=== PATIENT | male | born 1950 | race Caucasian/White ===

== ENCOUNTER 2018-04-04 19:29 | Inpatient (IN) | payer MEDICARE ==
--- NOTE | 2018-04-04 20:13 | EDM.PDOC ---
ED HPI GENERAL MEDICAL PROBLEM - General Chief Complaint: Lower Extremity Injury/Pain Stated Complaint: INFECTION IN FOOT RECENT SURGERY Time Seen by Provider: 04/04/18 19:35 Source of Information: Reports: Patient History Limitations: Reports: No Limitations - History of Present Illness INITIAL COMMENTS - FREE TEXT/NARRATIVE: This is a 68-year-old male who is been a insulin-dependent diabetic for about 5 years. In November due to a diabetic foot he had all his toes removed on the right foot. He has had infections with staph aureus in the past in that right foot and left foot. He was noted by his friends today to be running a fever over the last 3-4 days and some sweating spells and then this evening as they were driving through on their way to [place] he had some spells of disorientation. He is originally from [place] and he is traveling through to [place] for a graduation. They stopped here at this hospital because of his symptoms and condition. The patient states his right foot has been swollen and red for the last few days. He has a peripheral neuropathy of both his feet and he describes his left ankle as a Charcot ankle. He does have a diabetic on the underside of his right foot that's been there for several days as well. He denies any history of cardiac disease or congestive heart failure. He denies any history of myocardial infarction. He believes he does have a history of hypertension. - Related Data Allergies Allergy/AdvReac Type Severity Reaction Status Date / Time No Known Allergies Allergy Verified 04/04/18 19:49 Home Meds: Home Meds Aspirin [Halfprin] 81 mg PO DAILY 04/04/18 [History] Ferrous Sulfate 325 mg PO BID 04/04/18 [History] atorvaSTATin Calcium [Atorvastatin Calcium] 40 mg PO DAILY 04/04/18 [History] metFORMIN HCl [Metformin HCl] 500 mg PO DAILY 04/04/18 [History] Review of Systems - Review of Systems Review Of Systems: See Below Constitutional: Reports: Chills, Diaphoresis, Fever, Weakness Eyes: Reports: No Symptoms Ears: Reports: No Symptoms Nose: Reports: No Symptoms Mouth/Throat: Reports: No Symptoms Respiratory: Denies: Shortness of Breath, Cough Cardiovascular: Reports: Edema. Denies: Chest Pain GI/Abdominal: Reports: No Symptoms. Denies: Nausea, Vomiting Genitourinary: Reports: No Symptoms Musculoskeletal: Reports: Other (As per history of present illness) Skin: Reports: Other (As per history of present illness) Neurological: Reports: Other (Peripheral neuropathy in his lower extremities.) Psychiatric: Reports: Confusion, Other (Some disorientation.) ED EXAM, GENERAL - Physical Exam Exam: See Below Exam Limited By: No Limitations General Appearance: Alert, WD/WN, No Apparent Distress Eye Exam: Bilateral Eye: Normal Inspection Ears: Normal External Exam, Normal Canal, Normal TMs Nose: Normal Inspection Throat/Mouth: Normal Inspection, Normal Lips, Normal Voice, No Airway Compromise , Other (Teeth are in poor repair) Head: Normocephalic Neck: Supple Respiratory/Chest: No Respiratory Distress, Lungs Clear, Normal Breath Sounds Cardiovascular: Regular Rate, Rhythm, No Murmur, Tachycardia GI/Abdominal: Soft, Non-Tender Back Exam: Decreased Range of Motion Extremities: Other (He has marked edema of the right lower extremity, he does have a diabetic ulcer under the first MP joint it's about 2 cm in diameter, 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 No : No Motor/Sensory Deficits Psychiatric: Flat Affect Skin Exam: Warm, Dry Course - Vital Signs Last Recorded V/S: Last Vital Signs Temp 101.5 F H 04/04/18 20:40 Pulse 80 04/04/18 20:40 Resp 25 H 04/04/18 20:40 BP 158/82 H 04/04/18 20:40 Pulse Ox 96 04/04/18 20:40 - Orders/Labs/Meds Orders: Active Orders 24 hr Category Date Time Status Chest 2V [CR] Stat Exams 04/04/18 19:53 Taken CULTURE BLOOD [BC] Stat Lab 04/04/18 20:28 Received CULTURE BLOOD [BC] Stat Lab 04/04/18 20:36 Received CULTURE WOUND [RM] Stat Lab 04/04/18 20:45 Ordered Piperacillin/Tazobactam [Zosyn] 4.5 gm Med 04/04/18 20:00 Active Sodium Chloride 0.9% [Normal Saline] 100 ml IV Q6H Sodium Chloride 0.9% [Normal Saline] 1,000 ml Med 04/04/18 20:00 Active IV ASDIRECTED Blood Culture x2 Reflex Set [OM.PC] Stat Oth 04/04/18 19:53 Ordered Medication Orders Sodium Chloride (Normal Saline) 1,000 mls @ 100 mls/hr IV ASDIRECTED MIMI Last Admin: 04/04/18 20:35 Dose: 100 mls/hr Piperacillin Sod/Tazobactam (Sod 4.5 gm/ Sodium Chloride) 100 mls @ 200 mls/hr IV Q6H MIMI Last Admin: 04/04/18 20:36 Dose: 200 mls/hr Labs: Laboratory Tests 04/04/18 04/04/18 04/04/18 Range/Units 19:50 19:50 19:50 WBC 9.19 H (4.23-9.07) K/mm3 RBC 5.01 (4.63-6.08) M/mm3 Hgb 9.6 L (13.7-17.5) gm/L Hct 29.7 L (40.1-51.0) % MCV 59.3 L (79.0-92.2) fl MCH 19.2 L (25.7-32.2) pg MCHC 32.3 (32.2-35.5) g/dl RDW Std Deviation 37.5 (35.1-43.9) fL Plt Count 247 (163-337) K/mm3 MPV TNP Neut % (Auto) 83.3 H (34.0-67.9) % Lymph % (Auto) 6.3 L (21.8-53.1) % [place] % (Auto) 8.3 (5.3-12.2) % Eos % (Auto) 1.6 (0.8-7.0) Baso % (Auto) 0.2 (0.1-1.2) % Neut # (Auto) 7.65 H (1.78-5.38) K/mm3 Lymph # (Auto) 0.58 L (1.32-3.57) K/mm3 [place] # (Auto) 0.76 (0.30-0.82) K/mm3 Eos # (Auto) 0.15 (0.04-0.54) K/mm3 Baso # (Auto) 0.02 (0.01-0.08) K/mm3 Manual Slide Review Abnormal smear PT 11.7 (9.5-12.1) SECONDS INR 1.07 APTT 29 (24-31) SECONDS Sodium (136-145) mEq/L Potassium (3.5-5.1) mEq/L Chloride (98-107) mEq/L Carbon Dioxide (21-32) mEq/L Anion Gap (5-15) BUN (7-18) mg/dL Creatinine (0.7-1.3) mg/dL Est Cr Clr Drug Dosing mL/min Estimated GFR (MDRD) (>60) mL/min BUN/Creatinine Ratio (14-18) Glucose (80-115) mg/dL Lactic Acid (0.4-2.0) mmol/L Calcium (8.5-10.1) mg/dL Magnesium (1.8-2.4) mg/dl Total Bilirubin (0.2-1.0) mg/dL AST (15-37) U/L ALT (16-63) U/L Alkaline Phosphatase (46-116) U/L C-Reactive Protein 17.3 H* (<1.0) mg/dL Total Protein (6.4-8.2) g/dl Albumin (3.4-5.0) g/dl Globulin gm/dL Albumin/Globulin Ratio (1-2) 04/04/18 04/04/18 04/04/18 Range/Units 19:50 19:50 20:36 WBC (4.23-9.07) K/mm3 RBC (4.63-6.08) M/mm3 Hgb (13.7-17.5) gm/L Hct (40.1-51.0) % MCV (79.0-92.2) fl MCH (25.7-32.2) pg MCHC (32.2-35.5) g/dl RDW Std Deviation (35.1-43.9) fL Plt Count (163-337) K/mm3 MPV Neut % (Auto) (34.0-67.9) % Lymph % (Auto) (21.8-53.1) % [place] % (Auto) (5.3-12.2) % Eos % (Auto) (0.8-7.0) Baso % (Auto) (0.1-1.2) % Neut # (Auto) (1.78-5.38) K/mm3 Lymph # (Auto) (1.32-3.57) K/mm3 [place] # (Auto) (0.30-0.82) K/mm3 Eos # (Auto) (0.04-0.54) K/mm3 Baso # (Auto) (0.01-0.08) K/mm3 Manual Slide Review PT (9.5-12.1) SECONDS INR APTT (24-31) SECONDS Sodium 136 (136-145) mEq/L Potassium 3.9 (3.5-5.1) mEq/L Chloride 102 (98-107) mEq/L Carbon Dioxide 23 (21-32) mEq/L Anion Gap 14.9 (5-15) BUN 28 H (7-18) mg/dL Creatinine 1.2 (0.7-1.3) mg/dL Est Cr Clr Drug Dosing 69.45 mL/min Estimated GFR (MDRD) > 60 (>60) mL/min BUN/Creatinine Ratio 23.3 H (14-18) Glucose 152 H (80-115) mg/dL Lactic Acid 1.5 (0.4-2.0) mmol/L Calcium 10.0 (8.5-10.1) mg/dL Magnesium 1.7 L (1.8-2.4) mg/dl Total Bilirubin 0.9 (0.2-1.0) mg/dL AST 18 (15-37) U/L ALT 27 (16-63) U/L Alkaline Phosphatase 51 (46-116) U/L C-Reactive Protein (<1.0) mg/dL Total Protein 7.3 (6.4-8.2) g/dl Albumin 3.2 L (3.4-5.0) g/dl Globulin 4.1 gm/dL Albumin/Globulin Ratio 0.8 L (1-2) Meds: Medications Generic Name Dose Route Start Last Admin Trade Name Freq PRN Reason Stop Dose Admin Sodium Chloride 1,000 mls @ 100 mls/hr 04/04/18 20:00 04/04/18 20:35 Normal Saline IV 100 mls/hr ASDIRECTED MIMI Administration Piperacillin Sod/Tazobactam 100 mls @ 200 mls/hr 04/04/18 20:00 04/04/18 20: 36 Sod 4.5 gm/ Sodium Chloride IV 200 mls/hr Q6H MIMI Administration Discontinued Medications Generic Name Dose Route Start Last Admin Trade Name [place] PRN Reason Stop Dose Admin Vancomycin HCl 1 gm/ Sodium 250 mls @ 250 mls/hr 04/04/18 20:04 04/04/18 20: 36 Chloride IV 04/04/18 21:03 250 mls/hr ONETIME ONE Administration Sodium Chloride Confirm 04/04/18 20:14 04/04/18 20:37 Normal Saline Administered 04/04/18 20:15 Not Given Dose 100 mls @ as directed .ROUTE .STK-MED ONE - Radiology Interpretation Free Text/Narrative:: Chest x-ray does not show any acute changes. - Re-Assessments/Exams Free Text/Narrative Re-Assessment/Exam: 04/04/18 21:58 I spoke to the patient regarding the need for admission. He is willing to be in the hospital for treatment. I spoke with Dr. Contreras and he is willing to accept the patient for admission for further evaluation and treatment. Departure - Departure Time of Disposition: 22:00 Disposition: Admitted As Inpatient 67 Condition: Fair Clinical Impression: Cellulitis of foot, right, Diabetic infection of right foot, Insulin dependent diabetes mellitus Diabetic ulcer of right foot Qualifiers: Diabetic foot ulcer location: other Diabetes mellitus type: type 1 Non- pressure ulcer stage: limited to breakdown of skin Qualified Code(s): E10.621 - Type 1 diabetes mellitus with foot ulcer; L97.511 - Non-pressure chronic ulcer of other part of right foot limited to breakdown of skin - Discharge Information ED Communication - ED Communication Date/Time Date: 04/04/18 Time Called: 22:02 - Discussed Case With (1) Discussed Case With (1): Admitting Provider Person/s Notified (1): Prudencio Contreras (He will admit for further evaluation and treatment) - My Orders Last 24 Hours: My Active Orders 04/04/18 19:53 Chest 2V [CR] Stat Blood Culture x2 Reflex Set [OM.PC] Stat 04/04/18 20:00 Piperacillin/Tazobactam [Zosyn] 4.5 gm Sodium Chloride 0.9% [Normal Saline] 100 ml IV Q6H Sodium Chloride 0.9% [Normal Saline] 1,000 ml IV ASDIRECTED 04/04/18 20:28 CULTURE BLOOD [BC] Stat 04/04/18 20:36 CULTURE BLOOD [BC] Stat 04/04/18 20:45 CULTURE WOUND [RM] Stat - Assessment/Plan Last 24 Hours: My Active Orders 04/04/18 19:53 Chest 2V [CR] Stat Blood Culture x2 Reflex Set [OM.PC] Stat 04/04/18 20:00 Piperacillin/Tazobactam [Zosyn] 4.5 gm Sodium Chloride 0.9% [Normal Saline] 100 ml IV Q6H Sodium Chloride 0.9% [Normal Saline] 1,000 ml IV ASDIRECTED 04/04/18 20:28 CULTURE BLOOD [BC] Stat 04/04/18 20:36 CULTURE BLOOD [BC] Stat 04/04/18 20:45 CULTURE WOUND [RM] Stat
[2018-04-04] MEDS ORDERED: Sodium Chloride 0.9% 100 ML ONE (20:14)
[2018-04-04] MEDS: Sodium Chloride 0.9% 1,000 ML IV SCH (20:35)
[2018-04-04] MEDS: Piperacillin/Tazobactam 4.5 GM in Sodium Chloride 0.9% 100 ML IV SCH (20:36)
[2018-04-04] MEDS ORDERED: Acetaminophen/HYDROcodone 325-5 MG Tab PO PRN (22:26)
[2018-04-04] MEDS ORDERED: Docusate Sodium 100 MG Cap PO PRN (22:26)
[2018-04-04] MEDS ORDERED: Ondansetron 4 MG/2 ML SDV IV PRN (22:26)
[2018-04-04] MEDS ORDERED: Bisacodyl 5 MG Tab PO PRN (22:26)
[2018-04-04] MEDS ORDERED: Polyethylene Glycol 3350 Powder 17 GM Packet PO PRN (22:26)
[2018-04-04] MEDS ORDERED: LORazepam 2 MG/ML SDV IV PRN (22:26)
[2018-04-04] MEDS ORDERED: Promethazine 12.5 MG in Sodium Chloride 0.9% 50 ML IV PRN (22:26)
[2018-04-04] MEDS ORDERED: Albuterol/Ipratropium 3.0-0.5 MG/3 ML Neb Soln NEB PRN (22:26)
[2018-04-04] MEDS ORDERED: Metoprolol Tartrate 5 MG/5 ML SDV IVPUSH PRN (22:26)
[2018-04-04] MEDS ORDERED: HYDROmorphone 0.5 MG/0.5 ML SYRINGE IVPUSH PRN (22:26)
[2018-04-04] MEDS ORDERED: Temazepam 15 MG Cap PO PRN (22:26)
[2018-04-04] MEDS ORDERED: LORazepam 2 MG/ML SDV IVPUSH PRN (22:26)
[2018-04-04] MEDS ORDERED: 50% Dextrose in Water 50 ML Syringe IVPUSH PRN (22:34)
[2018-04-04] MEDS ORDERED: Magnesium Sulfate/Water 2 GM in Premix Bag 1 BAG IV ONE (22:37)
--- NOTE | 2018-04-04 22:38 | PCM.HP ---
H&P History of Present Illness - General Date of Service: 04/04/18 Admit Problem/Dx: Admission Diagnosis/Problem Admission Diagnosis/Problem Cellulitis in diabetic foot Source of Information: Patient, Provider, RN Notes Reviewed History Limitations: Reports: Physical Impairment - History of Present Illness Initial Comments - Free Text/Narative: This is a 68 yo elderly white male with 5-6 year hx/o ID-DM2, HLD, MIKA and Obesity who comes in for evaluation of possible foot infection. He has been having fever, chills, sweats, and disorientation for the past 3-4 days while traveling along with friends on their way to [place] to attend a graduation ceremony of a family member. Patient comes to us all the way from [place]. According to patient, he has a stump on the right foot and at the bottom is an ulcer that is being has bee going on for 4 weeks now. He is seeing a crm marketing specialist in [place] for it. He checks his sugar from time to time. His last A1C is unknown. Patient reports having peripheral neuropathy on both leg. His initial workup in emergency department shows a CBC remarkable for WBC of 9.19, hemoglobin of 9.6, hematocrit of 29.7, MCV of 59.2, MCH of 19.2, neutrophils of 83.3%, and lymphocytes of 6.3%. His chemistry is remarkable for BUN of 28, glucose of 152, magnesium of 1.7, CRP of 17.3, and albumin of 3.2. His chest x-ray shows no acute abnormal findings. Patient is being admitted for sepsis and management of diabetic foot ulcer. He is full code. - Related Data Allergies/Adverse Reactions: Allergies Allergy/AdvReac Type Severity Reaction Status Date / Time No Known Allergies Allergy Verified 04/05/18 07:56 Home Medications: Home Meds Aspirin [Halfprin] 81 mg PO DAILY 04/04/18 [History] Ferrous Sulfate 325 mg PO BID 04/04/18 [History] atorvaSTATin Calcium [Atorvastatin Calcium] 40 mg PO DAILY 04/04/18 [History] metFORMIN HCl [Metformin HCl] 500 mg PO DAILY 04/04/18 [History] Past Medical History HEENT History: Reports: Cataract Musculoskeletal History: Reports: Amputation, Arthritis, Back Pain, Chronic, Gout, Other (See Below) Other Musculoskeletal History: sciatica Neurological History: Reports: Headaches, Chronic Endocrine/Metabolic History: Reports: Diabetes, Type II Dermatologic History: Reports: Cellulitis - Infectious Disease History Infectious Disease History: Reports: Other (See Below) Other Infectious Disease History: staph - Past Surgical History GI Surgical History: Reports: Hernia, Inguinal Musculoskeletal Surgical History: Reports: Amputation Dermatological Surgical History: Reports: Other (See Below) Social & Family History - Family History Family Medical History: Unobtainable - Tobacco Use Smoking Status *Q: Never Smoker Second Hand Smoke Exposure: No - Caffeine Use Caffeine Use: Reports: Coffee, Tea - Recreational Drug Use Recreational Drug Use: Yes Drug Use in Last 12 Months: Yes Recreational Drug Type: Reports: Marijuana/Hashish Recreational Drug Use Frequency: Monthly H&P Review of Systems - Review of Systems: Review Of Systems: See Below General: Reports: Fever, Chills, Weakness, Diaphoresis HEENT: Reports: No Symptoms Pulmonary: Denies: Shortness of Breath Cardiovascular: Reports: Edema. Denies: Chest Pain, Palpitations, Dyspnea on Exertion, Lightheadedness Gastrointestinal: Denies: Abdominal Pain, Decreased Appetite, Nausea, Vomiting Genitourinary: Reports: No Symptoms Musculoskeletal: Denies: Leg Pain, Foot Pain Skin: Reports: Wound, Lesions Psychiatric: Reports: Confusion. Denies: Depression, Anxiety, Hallucinations Neurological: Reports: Difficulty Walking, Weakness, Gait Disturbance, Other ( Peripheral Neuropathy) Hematologic/Lymphatic: Reports: No Symptoms Immunologic: Reports: Seasonal Allergy Exam - Exam Exam: See Below - Vital Signs Vital Signs: Last Vital Signs Temp 38.6 C H 04/04/18 20:40 Pulse 80 04/04/18 20:40 Resp 25 H 04/04/18 20:40 BP 158/82 H 04/04/18 20:40 Pulse Ox 96 04/04/18 20:40 Weight: 117.934 kg - Exam General: Alert, Oriented, Cooperative HEENT: EACs Clear, EOMI, Hearing Intact, Mucosa Moist & [place], Nares Patent, Normal Nasal Septum, Posterior Pharynx Clear, Pupils Equal, Pupils Reactive Neck: Supple, Trachea Midline, +2 Carotid Pulse wo Bruit Lungs: Clear to Auscultation, Normal Respiratory Effort Cardiovascular: Regular Rate, Regular Rhythm GI/Abdominal Exam: Normal Bowel Sounds, Soft, Non-Tender, No Organomegaly, No Distention, No Abnormal Bruit, No Mass (Male) Exam: Deferred Rectal (Males) Exam: Deferred Back Exam: Normal Inspection, Decreased Range of Motion Extremities: Limited Range of Motion (right), Redness (right foot), Other (Left Lower Extremity: Appropriate ROM, No obvious lesion or skin break down, No erythema or edema). No: Normal Inspection (right foot), Normal Range of Motion (right foot) Peripheral Pulses: 2+: Posterior Tibial (L), Dorsalis Pedis (L) Skin: Warm, Dry, Intact Skin Alteration Location (Drawings Not To Scale): 1 - right foot: stump--> underneath is a 25 coin size like ulcer; obvious edema and erythema Neuro Extensive - Mental Status: Oriented x3, Normal Cognition, Memory Intact Neuro Extensive - Motor, Sensory, Reflexes: CN II-XII Intact (Intact neurological exam affected ), Abnormal Gait, Motor/Sensory Deficits Psychiatric: Alert, Normal Affect, Normal Mood - Patient Data Lab Results Last 24 hrs: Laboratory Results - last 24 hr 04/04/18 04/04/18 04/04/18 Range/Units 19:50 19:50 19:50 WBC 9.19 H (4.23-9.07) K/mm3 RBC 5.01 (4.63-6.08) M/mm3 Hgb 9.6 L (13.7-17.5) gm/L Hct 29.7 L (40.1-51.0) % MCV 59.3 L (79.0-92.2) fl MCH 19.2 L (25.7-32.2) pg MCHC 32.3 (32.2-35.5) g/dl RDW Std Deviation 37.5 (35.1-43.9) fL Plt Count 247 (163-337) K/mm3 MPV TNP Neut % (Auto) 83.3 H (34.0-67.9) % Lymph % (Auto) 6.3 L (21.8-53.1) % [place] % (Auto) 8.3 (5.3-12.2) % Eos % (Auto) 1.6 (0.8-7.0) Baso % (Auto) 0.2 (0.1-1.2) % Neut # (Auto) 7.65 H (1.78-5.38) K/mm3 Lymph # (Auto) 0.58 L (1.32-3.57) K/mm3 [place] # (Auto) 0.76 (0.30-0.82) K/mm3 Eos # (Auto) 0.15 (0.04-0.54) K/mm3 Baso # (Auto) 0.02 (0.01-0.08) K/mm3 Manual Slide Review Abnormal smear PT 11.7 (9.5-12.1) SECONDS INR 1.07 APTT 29 (24-31) SECONDS Sodium (136-145) mEq/L Potassium (3.5-5.1) mEq/L Chloride (98-107) mEq/L Carbon Dioxide (21-32) mEq/L Anion Gap (5-15) BUN (7-18) mg/dL Creatinine (0.7-1.3) mg/dL Est Cr Clr Drug Dosing mL/min Estimated GFR (MDRD) (>60) mL/min BUN/Creatinine Ratio (14-18) Glucose (80-115) mg/dL Lactic Acid (0.4-2.0) mmol/L Calcium (8.5-10.1) mg/dL Magnesium (1.8-2.4) mg/dl Total Bilirubin (0.2-1.0) mg/dL AST (15-37) U/L ALT (16-63) U/L Alkaline Phosphatase (46-116) U/L C-Reactive Protein 17.3 H* (<1.0) mg/dL Total Protein (6.4-8.2) g/dl Albumin (3.4-5.0) g/dl Globulin gm/dL Albumin/Globulin Ratio (1-2) 04/04/18 04/04/18 04/04/18 Range/Units 19:50 19:50 20:36 WBC (4.23-9.07) K/mm3 RBC (4.63-6.08) M/mm3 Hgb (13.7-17.5) gm/L Hct (40.1-51.0) % MCV (79.0-92.2) fl MCH (25.7-32.2) pg MCHC (32.2-35.5) g/dl RDW Std Deviation (35.1-43.9) fL Plt Count (163-337) K/mm3 MPV Neut % (Auto) (34.0-67.9) % Lymph % (Auto) (21.8-53.1) % [place] % (Auto) (5.3-12.2) % Eos % (Auto) (0.8-7.0) Baso % (Auto) (0.1-1.2) % Neut # (Auto) (1.78-5.38) K/mm3 Lymph # (Auto) (1.32-3.57) K/mm3 [place] # (Auto) (0.30-0.82) K/mm3 Eos # (Auto) (0.04-0.54) K/mm3 Baso # (Auto) (0.01-0.08) K/mm3 Manual Slide Review PT (9.5-12.1) SECONDS INR APTT (24-31) SECONDS Sodium 136 (136-145) mEq/L Potassium 3.9 (3.5-5.1) mEq/L Chloride 102 (98-107) mEq/L Carbon Dioxide 23 (21-32) mEq/L Anion Gap 14.9 (5-15) BUN 28 H (7-18) mg/dL Creatinine 1.2 (0.7-1.3) mg/dL Est Cr Clr Drug Dosing 69.45 mL/min Estimated GFR (MDRD) > 60 (>60) mL/min BUN/Creatinine Ratio 23.3 H (14-18) Glucose 152 H (80-115) mg/dL Lactic Acid 1.5 (0.4-2.0) mmol/L Calcium 10.0 (8.5-10.1) mg/dL Magnesium 1.7 L (1.8-2.4) mg/dl Total Bilirubin 0.9 (0.2-1.0) mg/dL AST 18 (15-37) U/L ALT 27 (16-63) U/L Alkaline Phosphatase 51 (46-116) U/L C-Reactive Protein (<1.0) mg/dL Total Protein 7.3 (6.4-8.2) g/dl Albumin 3.2 L (3.4-5.0) g/dl Globulin 4.1 gm/dL Albumin/Globulin Ratio 0.8 L (1-2) Result Diagrams: 04/06/18 06:16 04/06/18 06:16 Problem List Initiated/Reviewed/Updated: Yes Orders Last 24hrs: Active Orders 24 hr Category Date Time Status Patient Status [ADT] Routine ADT 04/04/18 22:03 Active Blood Glucose Check, Bedside [RC] QIDACANDBED Care 04/04/18 22:34 Ordered Cardiac Monitoring [RC] CONTINUOUS Care 04/04/18 22:27 Active Height and Weight [RC] DAILY Care 04/04/18 22:26 Active Intake and Output [RC] QSHIFT Care 04/04/18 22:27 Active Oxygen Therapy [RC] PRN Care 04/04/18 22:27 Active RT Aerosol Therapy [RC] ASDIRECTED Care 04/04/18 22:28 Active Up With Assistance [RC] ASDIRECTED Care 04/04/18 22:26 Active Up ad Natalie [RC] ASDIRECTED Care 04/04/18 22:26 Active VTE/DVT Education [RC] PER UNIT ROUTINE Care 04/04/18 22:27 Active Vital Signs [RC] Q4H Care 04/04/18 22:27 Active Consult to Case Management [CONS] Routine Cons 04/04/18 22:29 Active Consult to Diabetic Nurse Specialist [CONS] Routine Cons 04/04/18 22:29 Active Consult to Various Exceptionalities Teacher [CONS] Routine Cons 04/04/18 22:29 Active Consult to Site Coordinator [CONS] Routine Cons 04/04/18 22:29 Active Consult to Spiritual Care [CONS] Routine Cons 04/04/18 22:29 Active OT Evaluation and Treatment [CONS] Routine Cons 04/04/18 22:29 Active PT Evaluation and Treatment [CONS] Routine Cons 04/04/18 22:29 Active Consistent Carbohydrate Diet [DIET] Diet 04/04/18 Dinner Active Heart Healthy Diet [DIET] Diet 04/04/18 Dinner Active Chest 2V [CR] Stat Exams 04/04/18 19:53 Taken A1C [GLYCOSYLATED HEMOGLOBIN,HGBA1C] [CHEM] AM Lab 04/05/18 05:11 Ordered BASIC METABOLIC PANEL,BMP [CHEM] AM Lab 04/05/18 05:11 Ordered BASIC METABOLIC PANEL,BMP [CHEM] AM Lab 04/06/18 05:11 Ordered BASIC METABOLIC PANEL,BMP [CHEM] AM Lab 04/07/18 05:11 Ordered BASIC METABOLIC PANEL,BMP [CHEM] AM Lab 04/08/18 05:11 Ordered BASIC METABOLIC PANEL,BMP [CHEM] AM Lab 04/09/18 05:11 Ordered C-REACTIVE PROTEIN [CHEM] AM Lab 04/05/18 05:11 Ordered C-REACTIVE PROTEIN [CHEM] AM Lab 04/06/18 05:11 Ordered C-REACTIVE PROTEIN [CHEM] AM Lab 04/07/18 05:11 Ordered C-REACTIVE PROTEIN [CHEM] AM Lab 04/08/18 05:11 Ordered C-REACTIVE PROTEIN [CHEM] AM Lab 04/09/18 05:11 Ordered CBC WITH AUTO DIFF [HEME] AM Lab 04/05/18 05:11 Ordered CBC WITH AUTO DIFF [HEME] AM Lab 04/06/18 05:11 Ordered CBC WITH AUTO DIFF [HEME] AM Lab 04/07/18 05:11 Ordered CBC WITH AUTO DIFF [HEME] AM Lab 04/08/18 05:11 Ordered CULTURE BLOOD [BC] Stat Lab 04/04/18 20:28 Received CULTURE BLOOD [BC] Stat Lab 04/04/18 20:36 Received CULTURE WOUND [RM] Stat Lab 04/04/18 20:45 Ordered LIPID PANEL [CHEM] AM Lab 04/05/18 05:11 Ordered MAGNESIUM [CHEM] AM Lab 04/05/18 05:11 Ordered MAGNESIUM [CHEM] AM Lab 04/06/18 05:11 Ordered MAGNESIUM [CHEM] AM Lab 04/07/18 05:11 Ordered MAGNESIUM [CHEM] AM Lab 04/08/18 05:11 Ordered MAGNESIUM [CHEM] AM Lab 04/09/18 05:11 Ordered MICROALBUMIN,URINE RANDOM [URCHEM] Stat Lab 04/04/18 22:31 Ordered T4 FREE [CHEM] AM Lab 04/05/18 05:11 Ordered TSH [CHEM] AM Lab 04/05/18 05:11 Ordered Acetaminophen [Tylenol] Med 04/04/18 22:26 Active 650 mg PO Q4H PRN Acetaminophen/HYDROcodone [[place] 325-5 MG] Med 04/04/18 22:26 Active 1 tab PO Q4H PRN Albuterol/Ipratropium [DuoNeb 3.0-0.5 MG/3 ML] Med 04/04/18 22:26 Ordered 3 ml NEB Q4H PRN Aspirin [Halfprin] Med 04/05/18 09:00 Ordered 81 mg PO DAILY Bisacodyl [Dulcolax] Med 04/04/18 22:26 Ordered 5 mg PO DAILY PRN Dextrose 50% in Water Med 04/04/18 22:34 Ordered 50 ml IVPUSH ASDIRECTED PRN Docusate Sodium [Colace] Med 04/04/18 22:26 Ordered 100 mg PO BID PRN Docusate Sodium/Sennosides [Senna Plus] Med 04/04/18 22:26 Ordered 1 tab PO BID PRN Enoxaparin [Lovenox] Med 04/05/18 09:00 Ordered 30 mg SUBCUT DAILY Ferrous Sulfate Med 04/05/18 09:00 Ordered 325 mg PO BID HYDROmorphone [Dilaudid] Med 04/04/18 22:26 Ordered 0.5 mg IVPUSH Q4H PRN Insulin Aspart [NovoLOG] Med 04/05/18 07:00 Ordered See Protocol SUBCUT QIDACANDBED LORazepam [Ativan] Med 04/04/18 22:26 Ordered 1 mg IV Q6H PRN LORazepam [Ativan] Med 04/04/18 22:26 Ordered 2 mg IVPUSH Q4H PRN Lisinopril [Prinivil] Med 04/05/18 09:00 Ordered 10 mg PO DAILY Magnesium Rep Pharmacy to Dose [Pharmacy to Dose - Med 04/04/18 22:30 Ordered Magnesium Replacement] 1 dose .XX ASDIRECTED Magnesium Sulfate/Water [Magnesium Sulfate 2 GM in Med 04/04/18 22:37 Ordered Water 50 ML] 2 gm Premix Bag 1 bag IV ONETIME Metoprolol Tartrate [Lopressor] Med 04/04/18 22:26 Ordered 5 mg IVPUSH Q4H PRN Ondansetron [Zofran] Med 04/04/18 22:26 Ordered 4 mg IV Q6H PRN Piperacillin/Tazobactam [Zosyn] 4.5 gm Med 04/04/18 20:00 Active Sodium Chloride 0.9% [Normal Saline] 100 ml IV Q6H Polyethylene Glycol 3350 [MiraLAX] Med 04/04/18 22:26 Ordered 17 gm PO DAILY PRN Potassium Rep Pharmacy to Dose [Pharmacy to Dose - Med 04/04/18 22:30 Ordered Potassium Replacement] 1 dose .XX ASDIRECTED Promethazine [Phenergan] 12.5 mg Med 04/04/18 22:26 Ordered Sodium Chloride 0.9% [Normal Saline] 50 ml IV Q6H Saccharomyces Boulardii [Florastor] Med 04/05/18 09:00 Ordered 250 mg PO BID Sodium Chloride 0.9% [Normal Saline] 1,000 ml Med 04/04/18 20:00 Active IV ASDIRECTED Temazepam [Restoril] Med 04/04/18 22:26 Ordered 15 mg PO BEDTIME PRN Vancomycin Med 04/04/18 22:45 Ordered 1,769.01 mg IV Q12H Vancomycin Pharmacy to Dose [Pharmacy to Dose - Med 04/04/18 22:45 Ordered Vancomycin] 1 dose .XX ASDIRECTED atorvaSTATin Calcium Med 04/05/18 09:00 Ordered 40 mg PO DAILY hydrALAZINE [Apresoline] Med 04/04/18 22:26 Ordered 20 mg IVPUSH Q4H PRN metFORMIN [Glucophage] Med 04/05/18 09:00 Ordered 500 mg PO BID Blood Culture x2 Reflex Set [OM.PC] Stat Oth 04/04/18 19:53 Ordered Resuscitation Status Routine Resus Stat 04/04/18 22:26 Ordered Medication Orders Acetaminophen (Tylenol) 650 mg PO Q4H PRN PRN Reason: Pain (Mild 1-3)/fever Hydrocodone Bitart/Acetaminophen ([place] 325-5 Mg) 1 tab PO Q4H PRN PRN Reason: Pain (moderate 4-6) Albuterol/Ipratropium (Duoneb 3.0-0.5 Mg/3 Ml) 3 ml NEB Q4H PRN PRN Reason: Shortness Of Breath/wheezing Aspirin (Halfprin) 81 mg PO DAILY [facility] Bisacodyl (Dulcolax) 5 mg PO DAILY PRN PRN Reason: Constipation Dextrose/Water (Dextrose 50% In Water) 50 ml IVPUSH ASDIRECTED PRN PRN Reason: Hypoglycemia Docusate Sodium (Colace) 100 mg PO BID PRN PRN Reason: Constipation Enoxaparin Sodium (Lovenox) 40 mg SUBCUT DAILY [facility] Hydralazine HCl (Apresoline) 20 mg IVPUSH Q4H PRN PRN Reason: Hypertension Hydromorphone HCl (Dilaudid) 0.5 mg IVPUSH Q4H PRN PRN Reason: Pain (severe 7-10) Sodium Chloride (Normal Saline) 1,000 mls @ 100 mls/hr IV ASDIRECTED [facility] Last Admin: 04/04/18 20:35 Dose: 100 mls/hr Piperacillin Sod/Tazobactam (Sod 4.5 gm/ Sodium Chloride) 100 mls @ 200 mls/hr IV Q6H [facility] Last Admin: 04/04/18 20:36 Dose: 200 mls/hr Promethazine HCl 12.5 mg/ (Sodium Chloride) 50.5 mls @ 100 mls/hr IV Q6H PRN PRN Reason: Nausea/Vomiting Insulin Aspart (Novolog) 0 unit SUBCUT QIDACANDBED [facility]; Protocol Lisinopril (Prinivil) 10 mg PO DAILY [facility] Lorazepam (Ativan) 2 mg IVPUSH Q4H PRN PRN Reason: Seizures Lorazepam (Ativan) 1 mg IV Q6H PRN PRN Reason: Nausea/Vomiting Magnesium Sulfate (Pharmacy To Dose - Magnesium Replacement) 1 dose .XX ASDIRECTED [facility] Metformin HCl (Glucophage) 500 mg PO BID [facility] Metoprolol Tartrate (Lopressor) 5 mg IVPUSH Q4H PRN PRN Reason: Tachycardia Non-Formulary Medication (Atorvastatin Calcium) 40 mg PO DAILY [facility] Non-Formulary Medication (Ferrous Sulfate) 325 mg PO BID [facility] Ondansetron HCl (Zofran) 4 mg IV Q6H PRN PRN Reason: Nausea/Vomiting Polyethylene Glycol (Miralax) 17 gm PO DAILY PRN PRN Reason: Constipation Potassium Chloride (Pharmacy To Dose - Potassium Replacement) 1 dose .XX ASDIRECTED [facility] Saccharomyces Boulardii (Florastor) 250 mg PO BID [facility] Senna/Docusate Sodium (Senna Plus) 1 tab PO BID PRN PRN Reason: Constipation Temazepam (Restoril) 15 mg PO BEDTIME PRN PRN Reason: Sleep Vancomycin HCl (Vancomycin) 1,769.01 mg 15 mg/kg (1769.01 mg) IV Q12H [facility] Vancomycin HCl (Pharmacy To Dose - Vancomycin) 1 dose .XX ASDIRECTED [facility] Assessment/Plan Comment:: Assessment/Plan: Acute: Diabetic Foot Ulcer with Abscess - Right Foot S/p Amputation - 4 week old 25 quarter coin like ulcer on the bottom of the foot - He has been seeing a crm marketing specialist in [place] - He is not wearing diabetic shoes - He is on Metformin 500 mg po daily; however he admits to having 70/30 insulin but used it as needed - His last A1C is unknown - IV Vancomycin and Zosyn for pharmacy to dose - GS consult with Dr. Robertson - Aggressive glucose control Sepsis - Fever/Chills and Foot Infection - 2/2 Above - LA is 1.5 - Blood culture x 2 - Antibiotics as above Hypomagnesemia - Mg 1.7 - 2/2 inadequate intake - Replete and monitor Chronic: DM2 MIKA HLD Plan: Admit to [facility] with Tele Resume Home Meds Routine AM Labs A1C, Lipid Panel and TFT in AM Microalbumin Probiotic daily Accu-check QID and AC with ISS Diabetic and Dietary consult GS consult PT/OT consult SW/CM for d/c planning Code status:1
[2018-04-04] MEDS ORDERED: Vancomycin 500 MG SDV IV SCH (22:45)
[2018-04-05] MEDS: Piperacillin/Tazobactam 4.5 GM in Sodium Chloride 0.9% 100 ML IV SCH ×4 (02:35→04:04)
[2018-04-05] MEDS: Vancomycin 1500 MG in Sodium Chloride 0.9% 500 ML IV SCH ×9 (02:48→19:05)
[2018-04-05] MEDS: Sodium Chloride 0.9% 1,000 ML IV SCH ×2 (04:53→17:31)
[2018-04-05] MEDS ORDERED: Ferrous Sulfate 325 MG Tab PO SCH (07:00)
--- NOTE | 2018-04-05 07:41 | PCM.PN ---
- General Info Date of Service: 04/05/18 Admission Dx/Problem (Free Text): Admission Diagnosis/Problem Admission Diagnosis/Problem Cellulitis in diabetic foot Functional Status: Reports: Pain Controlled, Tolerating Diet, Ambulating, Urinating. Denies: New Symptoms - Review of Systems General: Denies: Fever, Weakness, Fatigue, Malaise, Chills HEENT: Reports: No Symptoms Pulmonary: Denies: Shortness of Breath, Cough Cardiovascular: Denies: Chest Pain, Palpitations, Dyspnea on Exertion, Lightheadedness Gastrointestinal: Denies: Abdominal Pain, Nausea, Vomiting Genitourinary: Reports: No Symptoms Musculoskeletal: Denies: Leg Pain, Foot Pain, Joint Swelling Skin: Denies: Cyanosis, Pallor, Diaphoresis, Pruritis, Rash Neurological: Reports: Difficulty Walking, Gait Disturbance. Denies: Confusion , Numbness, Syncope, Tingling, Weakness Psychiatric: Denies: Depression, Anxiety, Agitation, Hallucinations Systems Review Comment:: No overnight or acute issues. He slept pretty good. He has no complaints this AM. He is now afebrile and his CRP is down to 13.9. A1C is outstanding at 6.6. However his Hgb is down at 8.2 from 9.6 with unknown baseline. - Patient Data Vitals - Most Recent: Last Vital Signs Temp 36.5 C 04/05/18 03:53 Pulse 67 04/05/18 03:53 Resp 20 04/05/18 03:53 BP 129/66 04/05/18 03:53 Pulse Ox 95 04/05/18 03:53 Weight - Most Recent: 122.107 kg I&O - Last 24 Hours: Intake & Output 04/04/18 04/05/18 04/05/18 22:59 06:59 14:59 Intake Total 1150 Balance 1150 Lab Results Last 24 Hours: Laboratory Results - last 24 hr 04/04/18 04/04/18 04/04/18 Range/Units 19:50 19:50 19:50 WBC 9.19 H (4.23-9.07) K/mm3 RBC 5.01 (4.63-6.08) M/mm3 Hgb 9.6 L (13.7-17.5) gm/L Hct 29.7 L (40.1-51.0) % MCV 59.3 L (79.0-92.2) fl MCH 19.2 L (25.7-32.2) pg MCHC 32.3 (32.2-35.5) g/dl RDW Std Deviation 37.5 (35.1-43.9) fL Plt Count 247 (163-337) K/mm3 MPV TNP Neut % (Auto) 83.3 H (34.0-67.9) % Lymph % (Auto) 6.3 L (21.8-53.1) % Tyler % (Auto) 8.3 (5.3-12.2) % Eos % (Auto) 1.6 (0.8-7.0) Baso % (Auto) 0.2 (0.1-1.2) % Neut # (Auto) 7.65 H (1.78-5.38) K/mm3 Lymph # (Auto) 0.58 L (1.32-3.57) K/mm3 Tyler # (Auto) 0.76 (0.30-0.82) K/mm3 Eos # (Auto) 0.15 (0.04-0.54) K/mm3 Baso # (Auto) 0.02 (0.01-0.08) K/mm3 Manual Slide Review Abnormal smear PT 11.7 (9.5-12.1) SECONDS INR 1.07 APTT 29 (24-31) SECONDS Sodium (136-145) mEq/L Potassium (3.5-5.1) mEq/L Chloride (98-107) mEq/L Carbon Dioxide (21-32) mEq/L Anion Gap (5-15) BUN (7-18) mg/dL Creatinine (0.7-1.3) mg/dL Est Cr Clr Drug Dosing mL/min Estimated GFR (MDRD) (>60) mL/min BUN/Creatinine Ratio (14-18) Glucose (80-115) mg/dL POC Glucose (80-115) mg/dL Hemoglobin A1c (4.50-6.20) % Lactic Acid (0.4-2.0) mmol/L Calcium (8.5-10.1) mg/dL Magnesium (1.8-2.4) mg/dl Total Bilirubin (0.2-1.0) mg/dL AST (15-37) U/L ALT (16-63) U/L Alkaline Phosphatase (46-116) U/L C-Reactive Protein 17.3 H* (<1.0) mg/dL Total Protein (6.4-8.2) g/dl Albumin (3.4-5.0) g/dl Globulin gm/dL Albumin/Globulin Ratio (1-2) Triglycerides (<150) mg/dL Cholesterol (<200) mg/dL LDL Cholesterol Direct (<100) mg/dL HDL Cholesterol (40-59) mg/dL Free T4 (0.76-1.46) ng/dL TSH 3rd Generation (0.358-3.74) uIU/mL Ur Random Microalbumin (1.3-20.0) mg/L 04/04/18 04/04/18 04/04/18 Range/Units 19:50 19:50 20:36 WBC (4.23-9.07) K/mm3 RBC (4.63-6.08) M/mm3 Hgb (13.7-17.5) gm/L Hct (40.1-51.0) % MCV (79.0-92.2) fl MCH (25.7-32.2) pg MCHC (32.2-35.5) g/dl RDW Std Deviation (35.1-43.9) fL Plt Count (163-337) K/mm3 MPV Neut % (Auto) (34.0-67.9) % Lymph % (Auto) (21.8-53.1) % Tyler % (Auto) (5.3-12.2) % Eos % (Auto) (0.8-7.0) Baso % (Auto) (0.1-1.2) % Neut # (Auto) (1.78-5.38) K/mm3 Lymph # (Auto) (1.32-3.57) K/mm3 Tyler # (Auto) (0.30-0.82) K/mm3 Eos # (Auto) (0.04-0.54) K/mm3 Baso # (Auto) (0.01-0.08) K/mm3 Manual Slide Review PT (9.5-12.1) SECONDS INR APTT (24-31) SECONDS Sodium 136 (136-145) mEq/L Potassium 3.9 (3.5-5.1) mEq/L Chloride 102 (98-107) mEq/L Carbon Dioxide 23 (21-32) mEq/L Anion Gap 14.9 (5-15) BUN 28 H (7-18) mg/dL Creatinine 1.2 (0.7-1.3) mg/dL Est Cr Clr Drug Dosing 69.45 mL/min Estimated GFR (MDRD) > 60 (>60) mL/min BUN/Creatinine Ratio 23.3 H (14-18) Glucose 152 H (80-115) mg/dL POC Glucose (80-115) mg/dL Hemoglobin A1c (4.50-6.20) % Lactic Acid 1.5 (0.4-2.0) mmol/L Calcium 10.0 (8.5-10.1) mg/dL Magnesium 1.7 L (1.8-2.4) mg/dl Total Bilirubin 0.9 (0.2-1.0) mg/dL AST 18 (15-37) U/L ALT 27 (16-63) U/L Alkaline Phosphatase 51 (46-116) U/L C-Reactive Protein (<1.0) mg/dL Total Protein 7.3 (6.4-8.2) g/dl Albumin 3.2 L (3.4-5.0) g/dl Globulin 4.1 gm/dL Albumin/Globulin Ratio 0.8 L (1-2) Triglycerides (<150) mg/dL Cholesterol (<200) mg/dL LDL Cholesterol Direct (<100) mg/dL HDL Cholesterol (40-59) mg/dL Free T4 (0.76-1.46) ng/dL TSH 3rd Generation (0.358-3.74) uIU/mL Ur Random Microalbumin (1.3-20.0) mg/L 04/05/18 04/05/18 04/05/18 Range/Units 00:08 05:58 05:58 WBC 6.57 (4.23-9.07) K/mm3 RBC 4.29 L (4.63-6.08) M/mm3 Hgb 8.2 L (13.7-17.5) gm/L Hct 25.6 L (40.1-51.0) % MCV 59.7 L (79.0-92.2) fl MCH 19.1 L (25.7-32.2) pg MCHC 32.0 L (32.2-35.5) g/dl RDW Std Deviation 36.9 (35.1-43.9) fL Plt Count 215 (163-337) K/mm3 MPV 10.3 Neut % (Auto) 78.9 H (34.0-67.9) % Lymph % (Auto) 9.0 L (21.8-53.1) % Tyler % (Auto) 9.1 (5.3-12.2) % Eos % (Auto) 2.6 (0.8-7.0) Baso % (Auto) 0.2 (0.1-1.2) % Neut # (Auto) 5.19 (1.78-5.38) K/mm3 Lymph # (Auto) 0.59 L (1.32-3.57) K/mm3 Tyler # (Auto) 0.60 (0.30-0.82) K/mm3 Eos # (Auto) 0.17 (0.04-0.54) K/mm3 Baso # (Auto) 0.01 (0.01-0.08) K/mm3 Manual Slide Review Abnormal smear PT (9.5-12.1) SECONDS INR APTT (24-31) SECONDS Sodium 137 (136-145) mEq/L Potassium 3.6 (3.5-5.1) mEq/L Chloride 106 (98-107) mEq/L Carbon Dioxide 21 (21-32) mEq/L Anion Gap 13.6 (5-15) BUN 22 H (7-18) mg/dL Creatinine 1.0 (0.7-1.3) mg/dL Est Cr Clr Drug Dosing 83.34 mL/min Estimated GFR (MDRD) > 60 (>60) mL/min BUN/Creatinine Ratio 22.0 H (14-18) Glucose 131 H (80-115) mg/dL POC Glucose (80-115) mg/dL Hemoglobin A1c (4.50-6.20) % Lactic Acid (0.4-2.0) mmol/L Calcium 9.0 (8.5-10.1) mg/dL Magnesium 2.0 (1.8-2.4) mg/dl Total Bilirubin (0.2-1.0) mg/dL AST (15-37) U/L ALT (16-63) U/L Alkaline Phosphatase (46-116) U/L C-Reactive Protein 13.9 H* (<1.0) mg/dL Total Protein (6.4-8.2) g/dl Albumin (3.4-5.0) g/dl Globulin gm/dL Albumin/Globulin Ratio (1-2) Triglycerides 40 (<150) mg/dL Cholesterol 88 (<200) mg/dL LDL Cholesterol Direct 44 (<100) mg/dL HDL Cholesterol 34.0 L (40-59) mg/dL Free T4 1.20 (0.76-1.46) ng/dL TSH 3rd Generation 0.699 (0.358-3.74) uIU/mL Ur Random Microalbumin 58.9 H (1.3-20.0) mg/L 04/05/18 04/05/18 Range/Units 05:58 06:36 WBC (4.23-9.07) K/mm3 RBC (4.63-6.08) M/mm3 Hgb (13.7-17.5) gm/L Hct (40.1-51.0) % MCV (79.0-92.2) fl MCH (25.7-32.2) pg MCHC (32.2-35.5) g/dl RDW Std Deviation (35.1-43.9) fL Plt Count (163-337) K/mm3 MPV Neut % (Auto) (34.0-67.9) % Lymph % (Auto) (21.8-53.1) % [place] % (Auto) (5.3-12.2) % Eos % (Auto) (0.8-7.0) Baso % (Auto) (0.1-1.2) % Neut # (Auto) (1.78-5.38) K/mm3 Lymph # (Auto) (1.32-3.57) K/mm3 Tyler # (Auto) (0.30-0.82) K/mm3 Eos # (Auto) (0.04-0.54) K/mm3 Baso # (Auto) (0.01-0.08) K/mm3 Manual Slide Review PT (9.5-12.1) SECONDS INR APTT (24-31) SECONDS Sodium (136-145) mEq/L Potassium (3.5-5.1) mEq/L Chloride (98-107) mEq/L Carbon Dioxide (21-32) mEq/L Anion Gap (5-15) BUN (7-18) mg/dL Creatinine (0.7-1.3) mg/dL Est Cr Clr Drug Dosing mL/min Estimated GFR (MDRD) (>60) mL/min BUN/Creatinine Ratio (14-18) Glucose (80-115) mg/dL POC Glucose 129 H (80-115) mg/dL Hemoglobin A1c 6.60 H (4.50-6.20) % Lactic Acid (0.4-2.0) mmol/L Calcium (8.5-10.1) mg/dL Magnesium (1.8-2.4) mg/dl Total Bilirubin (0.2-1.0) mg/dL AST (15-37) U/L ALT (16-63) U/L Alkaline Phosphatase (46-116) U/L C-Reactive Protein (<1.0) mg/dL Total Protein (6.4-8.2) g/dl Albumin (3.4-5.0) g/dl Globulin gm/dL Albumin/Globulin Ratio (1-2) Triglycerides (<150) mg/dL Cholesterol (<200) mg/dL LDL Cholesterol Direct (<100) mg/dL HDL Cholesterol (40-59) mg/dL Free T4 (0.76-1.46) ng/dL TSH 3rd Generation (0.358-3.74) uIU/mL Ur Random Microalbumin (1.3-20.0) mg/L Med Orders - Current: Current Medications Acetaminophen (Tylenol) 650 mg PO Q4H PRN PRN Reason: Pain (Mild 1-3)/fever Hydrocodone Bitart/Acetaminophen ([place] 325-5 Mg) 1 tab PO Q4H PRN PRN Reason: Pain (moderate 4-6) Albuterol/Ipratropium (Duoneb 3.0-0.5 Mg/3 Ml) 3 ml NEB Q4H PRN PRN Reason: Shortness Of Breath/wheezing Aspirin (Halfprin) 81 mg PO DAILY [facility] Bisacodyl (Dulcolax) 5 mg PO DAILY PRN PRN Reason: Constipation Dextrose/Water (Dextrose 50% In Water) 50 ml IVPUSH ASDIRECTED PRN PRN Reason: Hypoglycemia Docusate Sodium (Colace) 100 mg PO BID PRN PRN Reason: Constipation Enoxaparin Sodium (Lovenox) 40 mg SUBCUT DAILY [facility] Ferrous Sulfate (Ferrous Sulfate) 325 mg PO BIDMEALS@0800,1700 [facility] Hydralazine HCl (Apresoline) 20 mg IVPUSH Q4H PRN PRN Reason: Hypertension Hydromorphone HCl (Dilaudid) 0.5 mg IVPUSH Q4H PRN PRN Reason: Pain (severe 7-10) Sodium Chloride (Normal Saline) 1,000 mls @ 100 mls/hr IV ASDIRECTED [facility] Last Admin: 04/05/18 04:53 Dose: 100 mls/hr Promethazine HCl 12.5 mg/ (Sodium Chloride) 50.5 mls @ 100 mls/hr IV Q6H PRN PRN Reason: Nausea/Vomiting Vancomycin HCl 1 gm/Vancomycin HCl 500 mg/ Sodium Chloride 500 mls @ 333.025 mls/hr IV Q12H [facility] Last Admin: 04/05/18 02:48 Dose: 333.025 mls/hr Piperacillin Sod/Tazobactam (Sod 4.5 gm/ Sodium Chloride) 100 mls @ 25 mls/hr IV Q8H [facility] Last Admin: 04/05/18 02:35 Dose: 25 mls/hr Insulin Aspart (Novolog) 0 unit SUBCUT QIDACANDBED [facility]; Protocol Insulin Detemir (Levemir) 15 unit SUBCUT BID [facility] Lisinopril (Prinivil) 10 mg PO DAILY [facility] Lorazepam (Ativan) 2 mg IVPUSH Q4H PRN PRN Reason: Seizures Lorazepam (Ativan) 1 mg IV Q6H PRN PRN Reason: Nausea/Vomiting Magnesium Sulfate (Pharmacy To Dose - Magnesium Replacement) 1 dose .XX ASDIRECTED [facility] Metformin HCl (Glucophage) 500 mg PO BID [facility] Metoprolol Tartrate (Lopressor) 5 mg IVPUSH Q4H PRN PRN Reason: Tachycardia Ondansetron HCl (Zofran) 4 mg IV Q6H PRN PRN Reason: Nausea/Vomiting Polyethylene Glycol (Miralax) 17 gm PO DAILY PRN PRN Reason: Constipation Potassium Chloride (Pharmacy To Dose - Potassium Replacement) 1 dose .XX ASDIRECTED [facility] Rosuvastatin Calcium (Crestor) 10 mg PO DAILY [facility] Saccharomyces Boulardii (Florastor) 250 mg PO BID [facility] Senna/Docusate Sodium (Senna Plus) 1 tab PO BID PRN PRN Reason: Constipation Temazepam (Restoril) 15 mg PO BEDTIME PRN PRN Reason: Sleep Vancomycin HCl (Pharmacy To Dose - Vancomycin) 1 dose .XX ASDIRECTED [facility] Discontinued Medications Ferrous Sulfate (Ferrous Sulfate) 325 mg PO BIDMEALS [facility] Piperacillin Sod/Tazobactam (Sod 4.5 gm/ Sodium Chloride) 100 mls @ 200 mls/hr IV Q6H [facility] Last Admin: 04/05/18 04:04 Dose: Not Given Vancomycin HCl 1 gm/ Sodium (Chloride) 250 mls @ 250 mls/hr IV ONETIME ONE Stop: 04/04/18 21:03 Last Admin: 04/04/18 20:36 Dose: 250 mls/hr Sodium Chloride (Normal Saline) Confirm Administered Dose 100 mls @ as directed .ROUTE .STK-MED ONE Stop: 04/04/18 20:15 Last Admin: 04/04/18 20:37 Dose: Not Given Magnesium Sulfate 2 gm/ Premix 50 mls @ 25 mls/hr IV ONETIME ONE Stop: 04/05/18 00:36 Last Admin: 04/05/18 00:12 Dose: 25 mls/hr - Exam General: Alert, Oriented, Cooperative, No Acute Distress HEENT: Pupils Equal, Pupils Reactive, EOMI, Mucous Membr. Moist/[place] Neck: Supple, Trachea Midline, No JVD, No Thyromegaly Lungs: Clear to Auscultation, Normal Respiratory Effort Cardiovascular: Regular Rate, Regular Rhythm GI/Abdominal Exam: Normal Bowel Sounds, Soft, Non-Tender, No Organomegaly, No Distention, No Abnormal Bruit, No Mass (Male) Exam: Deferred Back Exam: Normal Inspection, Decreased Range of Motion Extremities: Other (Left Lower Extremity: Good ROM, No Edema, Obvious Lesions or Erythema) Peripheral Pulses: 2+: Posterior Tibial (R), Dorsalis Pedis (R) Skin: Warm, Dry, Intact Wound/Incisions: Drainage, Erythema, Other (Right Foot: Has a stump but there is an 25 coin like size ulcer at the bottom of his foot. On the top opening of the stump is draining with serosangenouns fluid, edematous but non tender to palpation. ). No: Healing Well Neurological: No New Focal Deficit. No: Normal Gait, Sensation Intact Psy/Mental Status: Normal Mood - Problem List Review Problem List Initiated/Reviewed/Updated: Yes - My Orders Last 24 Hours: My Active Orders 04/04/18 22:26 Height and Weight [RC] 04 Up With Assistance [RC] ASDIRECTED Up ad Natalie [RC] ASDIRECTED Acetaminophen [Tylenol] 650 mg PO Q4H PRN Acetaminophen/HYDROcodone [[place] 325-5 MG] 1 tab PO Q4H PRN Albuterol/Ipratropium [DuoNeb 3.0-0.5 MG/3 ML] 3 ml NEB Q4H PRN Bisacodyl [Dulcolax] 5 mg PO DAILY PRN Docusate Sodium [Colace] 100 mg PO BID PRN Docusate Sodium/Sennosides [Senna Plus] 1 tab PO BID PRN HYDROmorphone [Dilaudid] 0.5 mg IVPUSH Q4H PRN LORazepam [Ativan] 1 mg IV Q6H PRN LORazepam [Ativan] 2 mg IVPUSH Q4H PRN Metoprolol Tartrate [Lopressor] 5 mg IVPUSH Q4H PRN Ondansetron [Zofran] 4 mg IV Q6H PRN Polyethylene Glycol 3350 [MiraLAX] 17 gm PO DAILY PRN Promethazine [Phenergan] 12.5 mg Sodium Chloride 0.9% [Normal Saline] 50 ml IV Q6H Temazepam [Restoril] 15 mg PO BEDTIME PRN hydrALAZINE [Apresoline] 20 mg IVPUSH Q4H PRN Resuscitation Status Routine 04/04/18 22:27 Cardiac Monitoring [RC] CONTINUOUS Intake and Output [RC] QSHIFT Oxygen Therapy [RC] PRN VTE/DVT Education [RC] PER UNIT ROUTINE Vital Signs [RC] 20,00,04,08,12,16 04/04/18 22:28 RT Aerosol Therapy [RC] ASDIRECTED 04/04/18 22:29 Consult to Case Management [CONS] Routine Consult to Diabetic Nurse Specialist [CONS] Routine Consult to Transit Worker [CONS] Routine Consult to Custom Dressmaker [CONS] Routine Consult to Spiritual Care [CONS] Routine OT Evaluation and Treatment [CONS] Routine PT Evaluation and Treatment [CONS] Routine 04/04/18 22:30 Magnesium Rep Pharmacy to Dose [Pharmacy to Dose - Magnesium Replacement] 1 dose .XX ASDIRECTED Potassium Rep Pharmacy to Dose [Pharmacy to Dose - Potassium Replacement] 1 dose .XX ASDIRECTED 04/04/18 22:34 Blood Glucose Check, Bedside [RC] QIDACANDBED Dextrose 50% in Water 50 ml IVPUSH ASDIRECTED PRN 04/04/18 22:45 Vancomycin Pharmacy to Dose [Pharmacy to Dose - Vancomycin] 1 dose .XX ASDIRECTED 04/04/18 Dinner Consistent Carbohydrate Diet [DIET] Heart Healthy Diet [DIET] 04/05/18 00:08 MICROALBUMIN,URINE RANDOM [URCHEM] Stat 04/05/18 00:22 Consult to Physician [CONS] Routine 04/05/18 00:23 Notify Provider Consults [RC] ASDIRECTED 04/05/18 02:00 Vancomycin 1 gm Vancomycin 500 mg Sodium Chloride 0.9% [Normal Saline] 500 ml IV Q12H 04/05/18 07:00 Insulin Aspart [NovoLOG] See Protocol SUBCUT QIDACANDBED 04/05/18 08:00 Ferrous Sulfate 325 mg PO BIDMEALS@0800,1700 04/05/18 09:00 Aspirin [Halfprin] 81 mg PO DAILY Enoxaparin [Lovenox] 40 mg SUBCUT DAILY Insulin Detemir [Levemir] 15 unit SUBCUT BID Lisinopril [Prinivil] 10 mg PO DAILY Rosuvastatin [Crestor] 10 mg PO DAILY Saccharomyces Boulardii [Florastor] 250 mg PO BID metFORMIN [Glucophage] 500 mg PO BID 04/06/18 05:11 BASIC METABOLIC PANEL,BMP [CHEM] AM C-REACTIVE PROTEIN [CHEM] AM CBC WITH AUTO DIFF [HEME] AM MAGNESIUM [CHEM] AM 04/07/18 05:11 BASIC METABOLIC PANEL,BMP [CHEM] AM C-REACTIVE PROTEIN [CHEM] AM CBC WITH AUTO DIFF [HEME] AM MAGNESIUM [CHEM] AM 04/08/18 05:11 BASIC METABOLIC PANEL,BMP [CHEM] AM C-REACTIVE PROTEIN [CHEM] AM CBC WITH AUTO DIFF [HEME] AM MAGNESIUM [CHEM] AM 04/09/18 05:11 BASIC METABOLIC PANEL,BMP [CHEM] AM C-REACTIVE PROTEIN [CHEM] AM MAGNESIUM [CHEM] AM - Plan Plan:: Assessment/Plan: Acute: Diabetic Foot Ulcer with Abscess - Right Foot S/p Amputation - 4 week old coin like ulcer on the bottom of the foot - He has been seeing a airport operations specialist in [place] - He is not wearing diabetic shoes - He is on Metformin 500 mg po daily; however he admit to having 70/30 insulin but used it as needed - His last A1C is unknown - IV Vancomycin and Zosyn for pharmacy to dose - He may need ID and Wound Care - GS consult with Dr. Robertson - Aggressive glucose control Sepsis - 2/2 Above - Blood culture x 2- still pendng - Antibiotics as above Resolved S/p Hypomagnesemia - Mg 1.7--> 2.0 - 2/2 inadequate intake - Replete and monitor Chronic: DM2, BS controlled, A1C is 6.60 MIKA HLD Plan: He is clinically much better Routine AM Labs Lipid Panel: slightly low HLD, he is already on statin TFT- normal Microalbumin-58.9 pos- he is not ACEI or ARB; started MAXINE for renal protection Accu-check QID and AC with ISS Diabetic and Dietary consult PT/OT consult SW/CM for d/c planning Code status:1
[2018-04-05] MEDS: Insulin Aspart 100 Units/ML 3 ML Pen SUBCUT SCH ×3 (09:48→22:42)
[2018-04-05] MEDS: metFORMIN 500 MG Tab PO SCH ×2 (09:50→22:41)
[2018-04-05] MEDS: Lisinopril 10 MG Tab PO SCH (09:50)
[2018-04-05] MEDS: Enoxaparin 40 MG/0.4 ML Syringe SUBCUT SCH (09:50)
[2018-04-05] MEDS: Aspirin 81 MG Tab.EC PO SCH (09:50)
[2018-04-05] MEDS: Ferrous Sulfate 325 MG Tab PO SCH ×2 (09:50→17:33)
[2018-04-05] MEDS: Rosuvastatin 10 MG Tab PO SCH (09:50)
[2018-04-05] MEDS: Saccharomyces Boulardii (Probiotic) 250 MG Cap PO SCH ×2 (09:51→22:41)
[2018-04-05] MEDS: Insulin Detemir 100 Units/ML 3 ML Pen SUBCUT SCH ×2 (09:51→22:41)
[2018-04-05] MEDS ORDERED: Piperacillin/Tazobactam 4.5 GM in Dextrose 5% in Water 100 ML IV SCH ×2 (10:00)
--- NOTE | 2018-04-05 10:26 | PCM.CONS ---
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 He has been receiving wound care from a wound care clinic in [place]. He was last seen by them about 2 weeks ago. He presented to our emergency room where he was admitted with a diagnosis of a cellulitis of the extremity and placed on antibiotics intravenously. I was asked see him in consultation for his diabetic foot ulcer. - Related Data Allergies/Adverse Reactions: Allergies Allergy/AdvReac Type Severity Reaction Status Date / Time No Known Allergies Allergy Verified 04/05/18 07:56 Home Medications: Home Meds Aspirin [Halfprin] 81 mg PO DAILY 04/04/18 [History] Ferrous Sulfate 325 mg PO BID 04/04/18 [History] atorvaSTATin Calcium [Atorvastatin Calcium] 40 mg PO DAILY 04/04/18 [History] metFORMIN HCl [Metformin HCl] 500 mg PO DAILY 04/04/18 [History] Past Medical History HEENT History: Reports: Cataract Musculoskeletal History: Reports: Amputation, Arthritis, Back Pain, Chronic, Gout, Other (See Below) Other Musculoskeletal History: sciatica Neurological History: Reports: Headaches, Chronic Endocrine/Metabolic History: Reports: Diabetes, Type II Dermatologic History: Reports: Cellulitis - Infectious Disease History Infectious Disease History: Reports: Other (See Below) Other Infectious Disease History: staph - Past Surgical History GI Surgical History: Reports: Hernia, Inguinal Musculoskeletal Surgical History: Reports: Amputation Dermatological Surgical History: Reports: Other (See Below) Social & Family History - Family History Family Medical History: Unobtainable - Tobacco Use Smoking Status *Q: Never Smoker Second Hand Smoke Exposure: No - Caffeine Use Caffeine Use: Reports: Coffee, Tea Other Caffeine Use: 2-3 cups everyday - Recreational Drug Use Recreational Drug Use: Yes Drug Use in Last 12 Months: Yes Recreational Drug Type: Reports: Marijuana/Hashish Recreational Drug Use Frequency: Monthly H&P Review of Systems - Review of Systems: Review Of Systems: ROS reveals no pertinent complaints other than HPI. Exam - Exam Exam: See Below - Vital Signs Vital Signs: Last Vital Signs Temp 36.5 C 04/05/18 03:53 Pulse 67 04/05/18 03:53 Resp 20 04/05/18 03:53 BP 135/66 04/05/18 09:50 Pulse Ox 95 04/05/18 03:53 Weight: 122.107 kg - Exam General: Alert, Oriented, Cooperative HEENT: EOMI, Hearing Intact Neck: Supple, Trachea Midline Lungs: Normal Respiratory Effort Cardiovascular: Regular Rate GI/Abdominal Exam: Non-Tender (Male) Exam: Deferred Rectal (Males) Exam: Deferred Extremities: Other (There is a 2 cm diabetic foot ulcer in the right side mediastinal plantar aspect which is draining a dishwater colored type of purulence seen after compression of the soft tissues proximally. There is a mild erythema located around the area. The foot is essentially insensate.) Neuro Extensive - Mental Status: Alert, Oriented x3, Normal Mood/Affect, Normal Cognition - Patient Data Lab Results Last 24 hrs: Laboratory Results - last 24 hr 04/04/18 04/04/18 04/04/18 Range/Units 19:50 19:50 19:50 WBC 9.19 H (4.23-9.07) K/mm3 RBC 5.01 (4.63-6.08) M/mm3 Hgb 9.6 L (13.7-17.5) gm/L Hct 29.7 L (40.1-51.0) % MCV 59.3 L (79.0-92.2) fl MCH 19.2 L (25.7-32.2) pg MCHC 32.3 (32.2-35.5) g/dl RDW Std Deviation 37.5 (35.1-43.9) fL Plt Count 247 (163-337) K/mm3 MPV TNP Neut % (Auto) 83.3 H (34.0-67.9) % Lymph % (Auto) 6.3 L (21.8-53.1) % Graves % (Auto) 8.3 (5.3-12.2) % Eos % (Auto) 1.6 (0.8-7.0) Baso % (Auto) 0.2 (0.1-1.2) % Neut # (Auto) 7.65 H (1.78-5.38) K/mm3 Lymph # (Auto) 0.58 L (1.32-3.57) K/mm3 [place] # (Auto) 0.76 (0.30-0.82) K/mm3 Eos # (Auto) 0.15 (0.04-0.54) K/mm3 Baso # (Auto) 0.02 (0.01-0.08) K/mm3 Manual Slide Review Abnormal smear PT 11.7 (9.5-12.1) SECONDS INR 1.07 APTT 29 (24-31) SECONDS Sodium (136-145) mEq/L Potassium (3.5-5.1) mEq/L Chloride (98-107) mEq/L Carbon Dioxide (21-32) mEq/L Anion Gap (5-15) BUN (7-18) mg/dL Creatinine (0.7-1.3) mg/dL Est Cr Clr Drug Dosing mL/min Estimated GFR (MDRD) (>60) mL/min BUN/Creatinine Ratio (14-18) Glucose (80-115) mg/dL POC Glucose (80-115) mg/dL Hemoglobin A1c (4.50-6.20) % Lactic Acid (0.4-2.0) mmol/L Calcium (8.5-10.1) mg/dL Magnesium (1.8-2.4) mg/dl Total Bilirubin (0.2-1.0) mg/dL AST (15-37) U/L ALT (16-63) U/L Alkaline Phosphatase (46-116) U/L C-Reactive Protein 17.3 H* (<1.0) mg/dL Total Protein (6.4-8.2) g/dl Albumin (3.4-5.0) g/dl Globulin gm/dL Albumin/Globulin Ratio (1-2) Triglycerides (<150) mg/dL Cholesterol (<200) mg/dL LDL Cholesterol Direct (<100) mg/dL HDL Cholesterol (40-59) mg/dL Free T4 (0.76-1.46) ng/dL TSH 3rd Generation (0.358-3.74) uIU/mL Ur Random Microalbumin (1.3-20.0) mg/L 04/04/18 04/04/18 04/04/18 Range/Units 19:50 19:50 20:36 WBC (4.23-9.07) K/mm3 RBC (4.63-6.08) M/mm3 Hgb (13.7-17.5) gm/L Hct (40.1-51.0) % MCV (79.0-92.2) fl MCH (25.7-32.2) pg MCHC (32.2-35.5) g/dl RDW Std Deviation (35.1-43.9) fL Plt Count (163-337) K/mm3 MPV Neut % (Auto) (34.0-67.9) % Lymph % (Auto) (21.8-53.1) % Graves % (Auto) (5.3-12.2) % Eos % (Auto) (0.8-7.0) Baso % (Auto) (0.1-1.2) % Neut # (Auto) (1.78-5.38) K/mm3 Lymph # (Auto) (1.32-3.57) K/mm3 [place] # (Auto) (0.30-0.82) K/mm3 Eos # (Auto) (0.04-0.54) K/mm3 Baso # (Auto) (0.01-0.08) K/mm3 Manual Slide Review PT (9.5-12.1) SECONDS INR APTT (24-31) SECONDS Sodium 136 (136-145) mEq/L Potassium 3.9 (3.5-5.1) mEq/L Chloride 102 (98-107) mEq/L Carbon Dioxide 23 (21-32) mEq/L Anion Gap 14.9 (5-15) BUN 28 H (7-18) mg/dL Creatinine 1.2 (0.7-1.3) mg/dL Est Cr Clr Drug Dosing 69.45 mL/min Estimated GFR (MDRD) > 60 (>60) mL/min BUN/Creatinine Ratio 23.3 H (14-18) Glucose 152 H (80-115) mg/dL POC Glucose (80-115) mg/dL Hemoglobin A1c (4.50-6.20) % Lactic Acid 1.5 (0.4-2.0) mmol/L Calcium 10.0 (8.5-10.1) mg/dL Magnesium 1.7 L (1.8-2.4) mg/dl Total Bilirubin 0.9 (0.2-1.0) mg/dL AST 18 (15-37) U/L ALT 27 (16-63) U/L Alkaline Phosphatase 51 (46-116) U/L C-Reactive Protein (<1.0) mg/dL Total Protein 7.3 (6.4-8.2) g/dl Albumin 3.2 L (3.4-5.0) g/dl Globulin 4.1 gm/dL Albumin/Globulin Ratio 0.8 L (1-2) Triglycerides (<150) mg/dL Cholesterol (<200) mg/dL LDL Cholesterol Direct (<100) mg/dL HDL Cholesterol (40-59) mg/dL Free T4 (0.76-1.46) ng/dL TSH 3rd Generation (0.358-3.74) uIU/mL Ur Random Microalbumin (1.3-20.0) mg/L 04/05/18 04/05/18 04/05/18 Range/Units 00:08 05:58 05:58 WBC 6.57 (4.23-9.07) K/mm3 RBC 4.29 L (4.63-6.08) M/mm3 Hgb 8.2 L (13.7-17.5) gm/L Hct 25.6 L (40.1-51.0) % MCV 59.7 L (79.0-92.2) fl MCH 19.1 L (25.7-32.2) pg MCHC 32.0 L (32.2-35.5) g/dl RDW Std Deviation 36.9 (35.1-43.9) fL Plt Count 215 (163-337) K/mm3 MPV 10.3 Neut % (Auto) 78.9 H (34.0-67.9) % Lymph % (Auto) 9.0 L (21.8-53.1) % Graves % (Auto) 9.1 (5.3-12.2) % Eos % (Auto) 2.6 (0.8-7.0) Baso % (Auto) 0.2 (0.1-1.2) % Neut # (Auto) 5.19 (1.78-5.38) K/mm3 Lymph # (Auto) 0.59 L (1.32-3.57) K/mm3 Graves # (Auto) 0.60 (0.30-0.82) K/mm3 Eos # (Auto) 0.17 (0.04-0.54) K/mm3 Baso # (Auto) 0.01 (0.01-0.08) K/mm3 Manual Slide Review Abnormal smear PT (9.5-12.1) SECONDS INR APTT (24-31) SECONDS Sodium 137 (136-145) mEq/L Potassium 3.6 (3.5-5.1) mEq/L Chloride 106 (98-107) mEq/L Carbon Dioxide 21 (21-32) mEq/L Anion Gap 13.6 (5-15) BUN 22 H (7-18) mg/dL Creatinine 1.0 (0.7-1.3) mg/dL Est Cr Clr Drug Dosing 83.34 mL/min Estimated GFR (MDRD) > 60 (>60) mL/min BUN/Creatinine Ratio 22.0 H (14-18) Glucose 131 H (80-115) mg/dL POC Glucose (80-115) mg/dL Hemoglobin A1c (4.50-6.20) % Lactic Acid (0.4-2.0) mmol/L Calcium 9.0 (8.5-10.1) mg/dL Magnesium 2.0 (1.8-2.4) mg/dl Total Bilirubin (0.2-1.0) mg/dL AST (15-37) U/L ALT (16-63) U/L Alkaline Phosphatase (46-116) U/L C-Reactive Protein 13.9 H* (<1.0) mg/dL Total Protein (6.4-8.2) g/dl Albumin (3.4-5.0) g/dl Globulin gm/dL Albumin/Globulin Ratio (1-2) Triglycerides 40 (<150) mg/dL Cholesterol 88 (<200) mg/dL LDL Cholesterol Direct 44 (<100) mg/dL HDL Cholesterol 34.0 L (40-59) mg/dL Free T4 1.20 (0.76-1.46) ng/dL TSH 3rd Generation 0.699 (0.358-3.74) uIU/mL Ur Random Microalbumin 58.9 H (1.3-20.0) mg/L 04/05/18 04/05/18 Range/Units 05:58 06:36 WBC (4.23-9.07) K/mm3 RBC (4.63-6.08) M/mm3 Hgb (13.7-17.5) gm/L Hct (40.1-51.0) % MCV (79.0-92.2) fl MCH (25.7-32.2) pg MCHC (32.2-35.5) g/dl RDW Std Deviation (35.1-43.9) fL Plt Count (163-337) K/mm3 MPV Neut % (Auto) (34.0-67.9) % Lymph % (Auto) (21.8-53.1) % Graves % (Auto) (5.3-12.2) % Eos % (Auto) (0.8-7.0) Baso % (Auto) (0.1-1.2) % Neut # (Auto) (1.78-5.38) K/mm3 Lymph # (Auto) (1.32-3.57) K/mm3 Graves # (Auto) (0.30-0.82) K/mm3 Eos # (Auto) (0.04-0.54) K/mm3 Baso # (Auto) (0.01-0.08) K/mm3 Manual Slide Review PT (9.5-12.1) SECONDS INR APTT (24-31) SECONDS Sodium (136-145) mEq/L Potassium (3.5-5.1) mEq/L Chloride (98-107) mEq/L Carbon Dioxide (21-32) mEq/L Anion Gap (5-15) BUN (7-18) mg/dL Creatinine (0.7-1.3) mg/dL Est Cr Clr Drug Dosing mL/min Estimated GFR (MDRD) (>60) mL/min BUN/Creatinine Ratio (14-18) Glucose (80-115) mg/dL POC Glucose 129 H (80-115) mg/dL Hemoglobin A1c 6.60 H (4.50-6.20) % Lactic Acid (0.4-2.0) mmol/L Calcium (8.5-10.1) mg/dL Magnesium (1.8-2.4) mg/dl Total Bilirubin (0.2-1.0) mg/dL AST (15-37) U/L ALT (16-63) U/L Alkaline Phosphatase (46-116) U/L C-Reactive Protein (<1.0) mg/dL Total Protein (6.4-8.2) g/dl Albumin (3.4-5.0) g/dl Globulin gm/dL Albumin/Globulin Ratio (1-2) Triglycerides (<150) mg/dL Cholesterol (<200) mg/dL LDL Cholesterol Direct (<100) mg/dL HDL Cholesterol (40-59) mg/dL Free T4 (0.76-1.46) ng/dL TSH 3rd Generation (0.358-3.74) uIU/mL Ur Random Microalbumin (1.3-20.0) mg/L Result Diagrams: 04/05/18 05:58 04/05/18 05:58 Mikael Results Last 24 hrs: Microbiology 04/04/18 20:28 Anaerobic Blood Culture - Final Blood - Venous Consult PN Assessment/Plan (1) Diabetic infection of right foot SNOMED Code(s): 24058219 Code(s): E11.628 - TYPE 2 DIABETES MELLITUS WITH OTHER SKIN COMPLICATIONS; L08.9 - LOCAL INFECTION OF THE SKIN AND SUBCUTANEOUS TISSUE, UNSP Priority: High Current Visit: Yes (2) Diabetic ulcer of right foot SNOMED Code(s): 572183888 Code(s): E11.621 - TYPE 2 DIABETES MELLITUS WITH FOOT ULCER; L97.519 - NON- PRS CHRONIC ULCER OTH PRT RIGHT FOOT W UNSP SEVERITY Priority: High Current Visit: Yes Qualifiers: Diabetic foot ulcer location: other Diabetes mellitus type: type 1 Non- pressure ulcer stage: limited to breakdown of skin Qualified Code(s): E10.621 - Type 1 diabetes mellitus with foot ulcer; L97.511 - Non-pressure chronic ulcer of other part of right foot limited to breakdown of skin Assessment:: Cellulitis emanating from a chronic diabetic foot ulcer. The patient is on intravenous antibiotics for the cellulitis but he needs debridement of necrotic tissue and drainage of any purulent material to optimize the efficacy of the antibiotics for stabilization and preparation for discharge. Long-term he can be followed up at his wound care center and they can evaluate him for a possible underlying osteomyelitis if indicated. He has had a Syme's amputation Which is a risk factor long-term for a [id number] amputation. Problem List Initiated/Reviewed/Updated: Yes Plan: Debridement, irrigation, drainage, and dressing care in the operating room today.
[2018-04-05] MEDS ORDERED: Bupivacaine 0.5%/EPINEPHrine 1:200,000 50 ML MDV ONE (10:29)
[2018-04-05] MEDS ORDERED: Lidocaine 1% with EPINEPHrine 1:100,000 20 ML MDV ONE (10:29)
--- NOTE | 2018-04-05 10:38 | PCM.PREANE ---
Preanesthetic Assessment - Anesthesia/Transfusion/Family Hx Anesthesia History: Prior Anesthesia Without Reaction Family History of Anesthesia Reaction: No Transfusion History: No Prior Transfusion(s) - Review of Systems General: No Symptoms Pulmonary: No Symptoms Cardiovascular: No Symptoms Gastrointestinal: No Symptoms Neurological: Numbness (feet), Difficulty Walking Other: Reports: Diabetes - Physical Assessment NPO Status Date: 04/05/18 NPO Status Time: 10:36 Pulse: 67 O2 Sat by Pulse Oximetry: 95 Respiratory Rate: 20 Blood Pressure: 135/66 Temperature: 36.5 C Vital Signs: Last Vital Signs Temp 36.5 C 04/05/18 03:53 Pulse 67 04/05/18 03:53 Resp 20 04/05/18 03:53 BP 135/66 04/05/18 09:50 Pulse Ox 95 04/05/18 03:53 Height: 1.88 m Weight: 122.107 kg ASA Class: 3E Mental Status: Alert & Oriented x3 Airway Class: Mallampati = 1 Dentition: Reports: Broken Tooth/Teeth, Missing Tooth/Teeth, Caries Thyro-Mental Finger Breadths: 3 Mouth Opening Finger Breadths: 3 ROM/Head Extension: Full Lungs: Clear to Auscultation, Normal Respiratory Effort Cardiovascular: Regular Rate, Regular Rhythm - Lab Values: Laboratory Last Values WBC 6.57 K/mm3 (4.23-9.07) 04/05/18 05:58 RBC 4.29 M/mm3 (4.63-6.08) L 04/05/18 05:58 Hgb 8.2 gm/L (13.7-17.5) L 04/05/18 05:58 Hct 25.6 % (40.1-51.0) L 04/05/18 05:58 MCV 59.7 fl (79.0-92.2) L 04/05/18 05:58 MCH 19.1 pg (25.7-32.2) L 04/05/18 05:58 MCHC 32.0 g/dl (32.2-35.5) L 04/05/18 05:58 RDW Std Deviation 36.9 fL (35.1-43.9) 04/05/18 05:58 Plt Count 215 K/mm3 (163-337) 04/05/18 05:58 MPV 10.3 fl (9.4-12.3) 04/05/18 05:58 Neut % (Auto) 78.9 % (34.0-67.9) H 04/05/18 05:58 Lymph % (Auto) 9.0 % (21.8-53.1) L 04/05/18 05:58 [place] % (Auto) 9.1 % (5.3-12.2) 04/05/18 05:58 Eos % (Auto) 2.6 (0.8-7.0) 04/05/18 05:58 Baso % (Auto) 0.2 % (0.1-1.2) 04/05/18 05:58 Neut # (Auto) 5.19 K/mm3 (1.78-5.38) 04/05/18 05:58 Lymph # (Auto) 0.59 K/mm3 (1.32-3.57) L 04/05/18 05:58 [place] # (Auto) 0.60 K/mm3 (0.30-0.82) 04/05/18 05:58 Eos # (Auto) 0.17 K/mm3 (0.04-0.54) 04/05/18 05:58 Baso # (Auto) 0.01 K/mm3 (0.01-0.08) 04/05/18 05:58 Manual Slide Review Abnormal smear 04/05/18 05:58 PT 11.7 SECONDS (9.5-12.1) 04/04/18 19:50 INR 1.07 04/04/18 19:50 APTT 29 SECONDS (24-31) 04/04/18 19:50 Sodium 137 mEq/L (136-145) 04/05/18 05:58 Potassium 3.6 mEq/L (3.5-5.1) 04/05/18 05:58 Chloride 106 mEq/L (98-107) 04/05/18 05:58 Carbon Dioxide 21 mEq/L (21-32) 04/05/18 05:58 Anion Gap 13.6 (5-15) 04/05/18 05:58 BUN 22 mg/dL (7-18) H 04/05/18 05:58 Creatinine 1.0 mg/dL (0.7-1.3) 04/05/18 05:58 Est Cr Clr Drug Dosing 83.34 mL/min 04/05/18 05:58 Estimated GFR (MDRD) > 60 mL/min (>60) 04/05/18 05:58 BUN/Creatinine Ratio 22.0 (14-18) H 04/05/18 05:58 Glucose 131 mg/dL (80-115) H 04/05/18 05:58 POC Glucose 129 mg/dL (80-115) H 04/05/18 06:36 Hemoglobin A1c 6.60 % (4.50-6.20) H 04/05/18 05:58 Lactic Acid 1.5 mmol/L (0.4-2.0) 04/04/18 20:36 Calcium 9.0 mg/dL (8.5-10.1) 04/05/18 05:58 Magnesium 2.0 mg/dl (1.8-2.4) 04/05/18 05:58 Total Bilirubin 0.9 mg/dL (0.2-1.0) 04/04/18 19:50 AST 18 U/L (15-37) 04/04/18 19:50 ALT 27 U/L (16-63) 04/04/18 19:50 Alkaline Phosphatase 51 U/L (46-116) 04/04/18 19:50 C-Reactive Protein 13.9 mg/dL (<1.0) H* 04/05/18 05:58 Total Protein 7.3 g/dl (6.4-8.2) 04/04/18 19:50 Albumin 3.2 g/dl (3.4-5.0) L 04/04/18 19:50 Globulin 4.1 gm/dL 04/04/18 19:50 Albumin/Globulin Ratio 0.8 (1-2) L 04/04/18 19:50 Triglycerides 40 mg/dL (<150) 04/05/18 05:58 Cholesterol 88 mg/dL (<200) 04/05/18 05:58 LDL Cholesterol Direct 44 mg/dL (<100) 04/05/18 05:58 HDL Cholesterol 34.0 mg/dL (40-59) L 04/05/18 05:58 Free T4 1.20 ng/dL (0.76-1.46) 04/05/18 05:58 TSH 3rd Generation 0.699 uIU/mL (0.358-3.74) 04/05/18 05:58 Ur Random Microalbumin 58.9 mg/L (1.3-20.0) H 04/05/18 00:08 - Allergies Allergies/Adverse Reactions: Allergies Allergy/AdvReac Type Severity Reaction Status Date / Time No Known Allergies Allergy Verified 04/05/18 07:56 - Blood Blood Available: No Product(s) Available: None - Anesthesia Plan Pre-Op Medication Ordered: None - Acknowledgements Anesthesia Type Planned: MAC Pt an Appropriate Candidate for the Planned Anesthesia: Yes Alternatives and Risks of Anesthesia Discussed w Pt/Guardian: Yes Pt/Guardian Understands and Agrees with Anesthesia Plan: Yes PreAnesthesia Questionnaire HEENT History: Reports: Cataract Musculoskeletal History: Reports: Amputation, Arthritis, Back Pain, Chronic, Gout, Other (See Below) Other Musculoskeletal History: sciatica Neurological History: Reports: Headaches, Chronic Endocrine/Metabolic History: Reports: Diabetes, Type II Dermatologic History: Reports: Cellulitis - Infectious Disease History Infectious Disease History: Reports: Other (See Below) Other Infectious Disease History: staph - Past Surgical History GI Surgical History: Reports: Hernia, Inguinal Musculoskeletal Surgical History: Reports: Amputation Dermatological Surgical History: Reports: Other (See Below) - SUBSTANCE USE Smoking Status *Q: Never Smoker Second Hand Smoke Exposure: No Recreational Drug Use History: Yes Recreational Drug Type: Reports: Marijuana/Hashish - HOME MEDS Home Medications: Home Meds Aspirin [Halfprin] 81 mg PO DAILY 04/04/18 [History] Ferrous Sulfate 325 mg PO BID 04/04/18 [History] atorvaSTATin Calcium [Atorvastatin Calcium] 40 mg PO DAILY 04/04/18 [History] metFORMIN HCl [Metformin HCl] 500 mg PO DAILY 04/04/18 [History] - CURRENT (IN HOUSE) MEDS Current Meds: Current Medications Acetaminophen (Tylenol) 650 mg PO Q4H PRN PRN Reason: Pain (Mild 1-3)/fever Hydrocodone Bitart/Acetaminophen ([place] 325-5 Mg) 1 tab PO Q4H PRN PRN Reason: Pain (moderate 4-6) Albuterol/Ipratropium (Duoneb 3.0-0.5 Mg/3 Ml) 3 ml NEB Q4H PRN PRN Reason: Shortness Of Breath/wheezing Aspirin (Halfprin) 81 mg PO DAILY [facility] Last Admin: 04/05/18 09:50 Dose: 81 mg Bisacodyl (Dulcolax) 5 mg PO DAILY PRN PRN Reason: Constipation Dextrose/Water (Dextrose 50% In Water) 50 ml IVPUSH ASDIRECTED PRN PRN Reason: Hypoglycemia Docusate Sodium (Colace) 100 mg PO BID PRN PRN Reason: Constipation Enoxaparin Sodium (Lovenox) 40 mg SUBCUT DAILY [facility] Last Admin: 04/05/18 09:50 Dose: 40 mg Ferrous Sulfate (Ferrous Sulfate) 325 mg PO BIDMEALS@0800,1700 [facility] Last Admin: 04/05/18 09:50 Dose: 325 mg Hydralazine HCl (Apresoline) 20 mg IVPUSH Q4H PRN PRN Reason: Hypertension Hydromorphone HCl (Dilaudid) 0.5 mg IVPUSH Q4H PRN PRN Reason: Pain (severe 7-10) Sodium Chloride (Normal Saline) 1,000 mls @ 100 mls/hr IV ASDIRECTED [facility] Last Admin: 04/05/18 04:53 Dose: 100 mls/hr Promethazine HCl 12.5 mg/ (Sodium Chloride) 50.5 mls @ 100 mls/hr IV Q6H PRN PRN Reason: Nausea/Vomiting Vancomycin HCl 1 gm/Vancomycin HCl 500 mg/ Sodium Chloride 500 mls @ 333.025 mls/hr IV Q12H [facility] Last Admin: 04/05/18 02:48 Dose: 333.025 mls/hr Piperacillin Sod/Tazobactam (Sod 4.5 gm/ Dextrose/Water) 100 mls @ 25 mls/hr IV Q8H [facility] Last Admin: 04/05/18 10:23 Dose: 25 mls/hr Insulin Aspart (Novolog) 0 unit SUBCUT QIDACANDBED [facility]; Protocol Last Admin: 04/05/18 09:48 Dose: Not Given Insulin Detemir (Levemir) 15 unit SUBCUT BID [facility] Last Admin: 04/05/18 09:51 Dose: 15 units Lisinopril (Prinivil) 10 mg PO DAILY [facility] Last Admin: 04/05/18 09:50 Dose: 10 mg Lorazepam (Ativan) 2 mg IVPUSH Q4H PRN PRN Reason: Seizures Lorazepam (Ativan) 1 mg IV Q6H PRN PRN Reason: Nausea/Vomiting Magnesium Sulfate (Pharmacy To Dose - Magnesium Replacement) 1 dose .XX ASDIRECTED [facility] Metformin HCl (Glucophage) 500 mg PO BID [facility] Last Admin: 04/05/18 09:50 Dose: 500 mg Metoprolol Tartrate (Lopressor) 5 mg IVPUSH Q4H PRN PRN Reason: Tachycardia Ondansetron HCl (Zofran) 4 mg IV Q6H PRN PRN Reason: Nausea/Vomiting Polyethylene Glycol (Miralax) 17 gm PO DAILY PRN PRN Reason: Constipation Potassium Chloride (Pharmacy To Dose - Potassium Replacement) 1 dose .XX ASDIRECTED [facility] Rosuvastatin Calcium (Crestor) 10 mg PO DAILY [facility] Last Admin: 04/05/18 09:50 Dose: 10 mg Saccharomyces Boulardii (Florastor) 250 mg PO BID [facility] Last Admin: 04/05/18 09:51 Dose: 250 mg Senna/Docusate Sodium (Senna Plus) 1 tab PO BID PRN PRN Reason: Constipation Temazepam (Restoril) 15 mg PO BEDTIME PRN PRN Reason: Sleep Vancomycin HCl (Pharmacy To Dose - Vancomycin) 1 dose .XX ASDIRECTED [facility] Discontinued Medications Bupivacaine HCl/Epinephrine Bitart (Marcaine 0.5%/Epinephrine 1:200,000) Confirm Administered Dose 50 ml .ROUTE .STK-MED ONE Stop: 04/05/18 10:30 [facility] Sod/Tazobactam (Sod 4.5 gm/ Sodium Chloride) 100 mls @ 200 mls/hr IV Q6H [facility] Last Admin: 04/05/18 04:04 Dose: Not Given Vancomycin HCl 1 gm/ Sodium (Chloride) 250 mls @ 250 mls/hr IV ONETIME ONE Stop: 04/04/18 21:03 Last Admin: 04/04/18 20:36 Dose: 250 mls/hr Sodium Chloride (Normal Saline) Confirm Administered Dose 100 mls @ as directed .ROUTE .STK-MED ONE Stop: 04/04/18 20:15 Last Admin: 04/04/18 20:37 Dose: Not Given Magnesium Sulfate 2 gm/ Premix 50 mls @ 25 mls/hr IV ONETIME ONE Stop: 04/05/18 00:36 Last Admin: 04/05/18 00:12 Dose: 25 mls/hr Piperacillin Sod/Tazobactam (Sod 4.5 gm/ Sodium Chloride) 100 mls @ 25 mls/hr IV Q8H [facility] Last Admin: 04/05/18 02:35 Dose: 25 mls/hr Lidocaine/Epinephrine (Xylocaine 1% With Epinephrine 1:100,000) Confirm Administered Dose 20 ml .ROUTE .[facility] ONE Stop: 04/05/18 10:30
[2018-04-05] MEDS ORDERED: Midazolam 1 MG/ML 2 ML SDV ONE (10:39)
[2018-04-05] MEDS ORDERED: Lidocaine 1% 50 ML MDV ONE (11:00)
--- NOTE | 2018-04-05 11:35 | PCM.OPNOTE ---
- General Post-Op/Procedure Note Date of Surgery/Procedure: 04/05/18 Operative Procedure(s): 1. Level 4 DFU debridement (skin, subcutaneous tissue, fascia, and bone). 2. Incision and drainage of a subcutaneous plantar stump abscess, with 3 L irrigation debridement Findings: 1-2 mL of subcutaneous pus localized just above exposed bone. Necrotic granulation tissue in the base of a chronic DFU, and circumferential DFU callus formation. Pre Op Diagnosis: Infected DFU Post-Op Diagnosis: Cellulitis, in conjunction with a subcutaneous abscess -- likely osteomyelitis Anesthesia Technique: Local, MAC Primary Surgeon: Rajesh Robertson Pathology: Cultures were taken for aerobic and anaerobic analysis EBL in mLs: 1 Complications: None Condition: Good Free Text/Narrative:: Intake & Output 04/04/18 04/05/18 04/05/18 22:59 06:59 14:59 Intake Total 1150 50 Output Total 450 Balance 1150 -400 After adequate IV sedation was obtained the patient was given local analgesia after Betadine prep and drape of the DFU area. I used 2 15 blades and a 10 blade to sharply circumferentially excise the extensive callus formation using a saucerization technique of the rim of the DFU. 1-2 mL of pus flowed from the central aspect of the ulcer. Cultures were taken at this point. I then took the bevel of the 10 blade and sharply excised the necrotic granulation tissue. On palpation I could feel the exposed bone beneath the abscess cavity. This was debrided with a rongeur. 3 L of saline with a 2% Betadine solution was used for pulsatile irrigation of the entire area and the cavity and spaces deep to the DFU. I then packed the area with 10 cm of 1/2 inch iodine impregnated gauze. Sterile gauze Kerlix and an Héctor wrap were used for the dressing. There were no complications.
--- NOTE | 2018-04-05 11:37 | PCM48HPAN ---
Post Anesthesia Note - EVALUATION WITHIN 48HRS OF ANESTHETIC Vital Signs in Normal Range: Yes Patient Participated in Evaluation: Yes Respiratory Function Stable: Yes Airway Patent: Yes Cardiovascular Function Stable: Yes Hydration Status Stable: Yes Pain Control Satisfactory: Yes Nausea and Vomiting Control Satisfactory: Yes Mental Status Recovered: Yes Pulse Rate: 67 Resp Rate: 20 Temperature: 36.5 C Blood Pressure: 135/66
[2018-04-05] MEDS: Acetaminophen 325 MG Tab PO PRN (17:45)
[2018-04-05] MEDS: Piperacillin/Tazobactam 4.5 GM in Dextrose 5% in Water 100 ML IV SCH ×2 (22:40)
[2018-04-06] MEDS: Vancomycin 1500 MG in Sodium Chloride 0.9% 500 ML IV SCH ×6 (04:24→17:35)
[2018-04-06] MEDS: Piperacillin/Tazobactam 4.5 GM in Dextrose 5% in Water 100 ML IV SCH ×2 (06:00)
--- NOTE | 2018-04-06 07:03 | PCM.PN ---
- General Info Date of Service: 04/06/18 Admission Dx/Problem (Free Text): Admission Diagnosis/Problem Admission Diagnosis/Problem Cellulitis in diabetic foot Subjective Update: Follow up Functional Status: Reports: Pain Controlled, Tolerating Diet, Urinating. Denies : New Symptoms - Review of Systems General: Denies: Fever, Weakness, Fatigue, Malaise, Chills HEENT: Reports: No Symptoms Pulmonary: Denies: Shortness of Breath Cardiovascular: Denies: Chest Pain, Palpitations, Dyspnea on Exertion, Lightheadedness Gastrointestinal: Denies: Abdominal Pain, Nausea, Vomiting Genitourinary: Reports: No Symptoms Musculoskeletal: Reports: No Symptoms Skin: Denies: Cyanosis, Jaundice, Mottled, Pallor, Diaphoresis, Bruising Neurological: Reports: Difficulty Walking, Gait Disturbance. Denies: Confusion , Weakness Psychiatric: Denies: Depression, Anxiety, Agitation, Hallucinations Systems Review Comment:: No overnight or acute issues. He slept pretty good. He has no complaints. His Hgb is stable at 8.1. His CRP is down to 13. His BS is well controlled. He has been afebrile but his HR has been in the upper 40s-50s. He is not receiving rate control medications or judi blocking agents. He looks comfortable and in no acute distress. - Patient Data Vitals - Most Recent: Last Vital Signs Temp 37.5 C 04/06/18 04:27 Pulse 57 L 04/06/18 04:27 Resp 12 04/06/18 04:27 BP 126/55 L 04/06/18 04:27 Pulse Ox 93 L 04/06/18 04:27 Weight - Most Recent: 123.422 kg I&O - Last 24 Hours: Intake & Output 04/05/18 04/06/18 04/06/18 22:59 06:59 14:59 Intake Total 1632 1541 Output Total 775 500 Balance 857 1041 Lab Results Last 24 Hours: Laboratory Results - last 24 hr 04/05/18 04/05/18 04/05/18 Range/Units 05:58 11:57 17:39 WBC (4.23-9.07) K/mm3 RBC (4.63-6.08) M/mm3 Hgb (13.7-17.5) gm/L Hct (40.1-51.0) % MCV (79.0-92.2) fl MCH (25.7-32.2) pg MCHC (32.2-35.5) g/dl RDW Std Deviation (35.1-43.9) fL Plt Count (163-337) K/mm3 MPV Neut % (Auto) (34.0-67.9) % Lymph % (Auto) (21.8-53.1) % [place] % (Auto) (5.3-12.2) % Eos % (Auto) (0.8-7.0) Baso % (Auto) (0.1-1.2) % Neut # (Auto) (1.78-5.38) K/mm3 Lymph # (Auto) (1.32-3.57) K/mm3 [place] # (Auto) (0.30-0.82) K/mm3 Eos # (Auto) (0.04-0.54) K/mm3 Baso # (Auto) (0.01-0.08) K/mm3 POC Glucose 143 H 99 (80-115) mg/dL Hemoglobin A1c 6.60 H (4.50-6.20) % 04/05/18 04/06/18 Range/Units 22:38 06:16 WBC 5.13 (4.23-9.07) K/mm3 RBC 4.26 L (4.63-6.08) M/mm3 Hgb 8.1 L (13.7-17.5) gm/L Hct 25.4 L (40.1-51.0) % MCV 59.6 L (79.0-92.2) fl MCH 19.0 L (25.7-32.2) pg MCHC 31.9 L (32.2-35.5) g/dl RDW Std Deviation 36.8 (35.1-43.9) fL Plt Count 233 (163-337) K/mm3 MPV TNP Neut % (Auto) 74.1 H (34.0-67.9) % Lymph % (Auto) 11.3 L (21.8-53.1) % [place] % (Auto) 9.7 (5.3-12.2) % Eos % (Auto) 4.3 (0.8-7.0) Baso % (Auto) 0.4 (0.1-1.2) % Neut # (Auto) 3.80 (1.78-5.38) K/mm3 Lymph # (Auto) 0.58 L (1.32-3.57) K/mm3 [place] # (Auto) 0.50 (0.30-0.82) K/mm3 Eos # (Auto) 0.22 (0.04-0.54) K/mm3 Baso # (Auto) 0.02 (0.01-0.08) K/mm3 POC Glucose 92 (80-115) mg/dL Hemoglobin A1c (4.50-6.20) % Mikael Results Last 24 Hours: Microbiology 04/04/18 20:28 Aerobic Blood Culture - Preliminary Blood - Venous NO GROWTH AFTER 1 DAY Anaerobic Blood Culture - Final 04/04/18 20:36 Aerobic Blood Culture - Preliminary Blood - Venous - Lab Draw NO GROWTH AFTER 1 DAY Anaerobic Blood Culture - Preliminary Gram Positive Cocci In Clustrs 04/04/18 20:45 Wound Culture - Preliminary Foot, Right Gram Negative Rods 04/05/18 11:10 Gram Stain - Final Foot, Right Med Orders - Current: Current Medications Acetaminophen (Tylenol) 650 mg PO Q4H PRN PRN Reason: Pain (Mild 1-3)/fever Last Admin: 04/05/18 17:45 Dose: 650 mg Hydrocodone Bitart/Acetaminophen ([place] 325-5 Mg) 1 tab PO Q4H PRN PRN Reason: Pain (moderate 4-6) Albuterol/Ipratropium (Duoneb 3.0-0.5 Mg/3 Ml) 3 ml NEB Q4H PRN PRN Reason: Shortness Of Breath/wheezing Aspirin (Halfprin) 81 mg PO DAILY [facility] Last Admin: 04/05/18 09:50 Dose: 81 mg Bisacodyl (Dulcolax) 5 mg PO DAILY PRN PRN Reason: Constipation Dextrose/Water (Dextrose 50% In Water) 50 ml IVPUSH ASDIRECTED PRN PRN Reason: Hypoglycemia Docusate Sodium (Colace) 100 mg PO BID PRN PRN Reason: Constipation Enoxaparin Sodium (Lovenox) 40 mg SUBCUT DAILY [facility] Last Admin: 04/05/18 09:50 Dose: 40 mg Ferrous Sulfate (Ferrous Sulfate) 325 mg PO BIDMEALS@0800,1700 [facility] Last Admin: 04/05/18 17:33 Dose: 325 mg Hydralazine HCl (Apresoline) 20 mg IVPUSH Q4H PRN PRN Reason: Hypertension Hydromorphone HCl (Dilaudid) 0.5 mg IVPUSH Q4H PRN PRN Reason: Pain (severe 7-10) Sodium Chloride (Normal Saline) 1,000 mls @ 100 mls/hr IV ASDIRECTED [facility] Last Admin: 04/05/18 17:31 Dose: 100 mls/hr Promethazine HCl 12.5 mg/ (Sodium Chloride) 50.5 mls @ 100 mls/hr IV Q6H PRN PRN Reason: Nausea/Vomiting Piperacillin Sod/Tazobactam (Sod 4.5 gm/ Dextrose/Water) 100 mls @ 25 mls/hr IV Q8H [facility] Last Admin: 04/06/18 04:24 Dose: 25 mls/hr Vancomycin HCl 1 gm/Vancomycin HCl 500 mg/ Sodium Chloride 500 mls @ 333.025 mls/hr IV Q12H [facility] Last Admin: 04/06/18 04:24 Dose: 333.025 mls/hr Insulin Aspart (Novolog) 0 unit SUBCUT QIDACANDBED [facility]; Protocol Last Admin: 04/05/18 22:42 Dose: Not Given Insulin Detemir (Levemir) 15 unit SUBCUT BID [facility] Last Admin: 04/05/18 22:41 Dose: 15 units Lisinopril (Prinivil) 10 mg PO DAILY [facility] Last Admin: 04/05/18 09:50 Dose: 10 mg Lorazepam (Ativan) 2 mg IVPUSH Q4H PRN PRN Reason: Seizures Lorazepam (Ativan) 1 mg IV Q6H PRN PRN Reason: Nausea/Vomiting Magnesium Sulfate (Pharmacy To Dose - Magnesium Replacement) 1 dose .XX ASDIRECTED [facility] Metformin HCl (Glucophage) 500 mg PO BID [facility] Last Admin: 04/05/18 22:41 Dose: 500 mg Metoprolol Tartrate (Lopressor) 5 mg IVPUSH Q4H PRN PRN Reason: Tachycardia Ondansetron HCl (Zofran) 4 mg IV Q6H PRN PRN Reason: Nausea/Vomiting Polyethylene Glycol (Miralax) 17 gm PO DAILY PRN PRN Reason: Constipation Potassium Chloride (Pharmacy To Dose - Potassium Replacement) 1 dose .XX ASDIRECTED [facility] Rosuvastatin Calcium (Crestor) 10 mg PO DAILY [facility] Last Admin: 04/05/18 09:50 Dose: 10 mg Saccharomyces Boulardii (Florastor) 250 mg PO BID [facility] Last Admin: 04/05/18 22:41 Dose: 250 mg Senna/Docusate Sodium (Senna Plus) 1 tab PO BID PRN PRN Reason: Constipation Temazepam (Restoril) 15 mg PO BEDTIME PRN PRN Reason: Sleep Vancomycin HCl (Pharmacy To Dose - Vancomycin) 1 dose .XX ASDIRECTED [facility] Discontinued Medications Bupivacaine HCl/Epinephrine Bitart ([place] 0.5%/Epinephrine 1:200,000) Confirm Administered Dose 50 ml .ROUTE .STK-MED ONE Stop: 04/05/18 10:30 Ferrous Sulfate (Ferrous Sulfate) 325 mg PO BIDMEALS [facility] Piperacillin Sod/Tazobactam (Sod 4.5 gm/ Sodium Chloride) 100 mls @ 200 mls/hr IV Q6H [facility] Last Admin: 04/05/18 04:04 Dose: Not Given Vancomycin HCl 1 gm/ Sodium (Chloride) 250 mls @ 250 mls/hr IV ONETIME ONE Stop: 04/04/18 21:03 Last Admin: 04/04/18 20:36 Dose: 250 mls/hr Sodium Chloride (Normal Saline) Confirm Administered Dose 100 mls @ as directed .ROUTE .STK-MED ONE Stop: 04/04/18 20:15 Last Admin: 04/04/18 20:37 Dose: Not Given Magnesium Sulfate 2 gm/ Premix 50 mls @ 25 mls/hr IV ONETIME ONE Stop: 04/05/18 00:36 Last Admin: 04/05/18 00:12 Dose: 25 mls/hr Vancomycin HCl 1 gm/Vancomycin HCl 500 mg/ Sodium Chloride 500 mls @ 333.025 mls/hr IV Q12H [facility] Last Admin: 04/05/18 19:05 Dose: Not Given Piperacillin Sod/Tazobactam (Sod 4.5 gm/ Sodium Chloride) 100 mls @ 25 mls/hr IV Q8H [facility] Last Admin: 04/05/18 02:35 Dose: 25 mls/hr Piperacillin Sod/Tazobactam (Sod 4.5 gm/ Dextrose/Water) 100 mls @ 25 mls/hr IV Q8H [facility] Last Admin: 04/05/18 10:23 Dose: 25 mls/hr Lidocaine HCl (Xylocaine 1%) Confirm Administered Dose 50 ml .ROUTE .STK-MED ONE Stop: 04/05/18 11:01 Last Admin: 04/05/18 10:59 Dose: 2 ml Lidocaine/Epinephrine (Xylocaine 1% With Epinephrine 1:100,000) Confirm Administered Dose 20 ml .ROUTE .STK-MED ONE Stop: 04/05/18 10:30 Midazolam HCl (Versed 1 Mg/Ml) Confirm Administered Dose 2 mg .ROUTE .STK-MED ONE Stop: 04/05/18 10:40 - Exam General: Alert, Oriented, Cooperative, No Acute Distress HEENT: Pupils Equal, Pupils Reactive, EOMI, Mucous Membr. Moist/[place] Neck: Supple, Trachea Midline, No JVD Lungs: Clear to Auscultation, Normal Respiratory Effort Cardiovascular: Regular Rhythm, Bradycardia GI/Abdominal Exam: Normal Bowel Sounds, Soft, Non-Tender, No Organomegaly, No Distention, No Abnormal Bruit, No Mass, Pelvis Stable (Male) Exam: Deferred Back Exam: Normal Inspection, Decreased Range of Motion Extremities: Other (Left Lower Extremity: Good ROM and Normal Inspection. No edema or erythema.) Peripheral Pulses: 2+: Posterior Tibial (L), Dorsalis Pedis (L) Skin: Warm, Dry, Intact Wound/Incisions: Dressing Dry and Intact, No Drainage, Other Neurological: No New Focal Deficit. No: Normal Gait, Strength Equal Bilateral, Reflexes Equal Bilateral, Sensation Intact Psy/Mental Status: Alert, Normal Affect, Normal Mood - Problem List Review Problem List Initiated/Reviewed/Updated: Yes - My Orders Last 24 Hours: My Active Orders 04/05/18 07:00 Insulin Aspart [NovoLOG] See Protocol SUBCUT QIDACANDBED 04/05/18 08:00 Ferrous Sulfate 325 mg PO BIDMEALS@0800,1700 04/05/18 09:00 Aspirin [Halfprin] 81 mg PO DAILY Enoxaparin [Lovenox] 40 mg SUBCUT DAILY Insulin Detemir [Levemir] 15 unit SUBCUT BID Lisinopril [Prinivil] 10 mg PO DAILY Rosuvastatin [Crestor] 10 mg PO DAILY Saccharomyces Boulardii [Florastor] 250 mg PO BID metFORMIN [Glucophage] 500 mg PO BID 04/05/18 09:43 Notify Provider Consults [RC] ASDIRECTED Consult to Physician [CONS] Routine 04/05/18 17:00 Vancomycin 1 gm Vancomycin 500 mg Sodium Chloride 0.9% [Normal Saline] 500 ml IV Q12H 04/06/18 06:16 BASIC METABOLIC PANEL,BMP [CHEM] AM C-REACTIVE PROTEIN [CHEM] AM CBC WITH AUTO DIFF [HEME] AM MAGNESIUM [CHEM] AM 04/07/18 05:11 BASIC METABOLIC PANEL,BMP [CHEM] AM C-REACTIVE PROTEIN [CHEM] AM CBC WITH AUTO DIFF [HEME] AM MAGNESIUM [CHEM] AM 04/08/18 05:11 BASIC METABOLIC PANEL,BMP [CHEM] AM C-REACTIVE PROTEIN [CHEM] AM CBC WITH AUTO DIFF [HEME] AM MAGNESIUM [CHEM] AM 04/09/18 05:11 BASIC METABOLIC PANEL,BMP [CHEM] AM C-REACTIVE PROTEIN [CHEM] AM MAGNESIUM [CHEM] AM - Plan Plan:: Assessment/Plan: Acute: Diabetic Foot Ulcer with Abscess and Osteomyelitis S/p I&D POD#1 - Right Foot S/p Amputation - 4 week old 25 quarter coin like ulcer on the bottom of the foot - He has been seeing a air traffic control specialist in [place] - He is not wearing diabetic shoes - He is on Metformin 500 mg po daily; however he admits to having 70/30 insulin but used it as needed - His last A1C is unknown--> now 6.6 - Continue IV Vancomycin and discontinue Zosyn since Blood Cx pos for GPC possible MRSA - Wound Cx: GPC and GNR - Dr. Robertson following - BS is well controlled Bacteremia 2/2 Diabetic Foot Ulcer with Abscess and Osteomyelitis - Now afebrile - Blood culture pos for Staph Aureus 1 bottle - Continue IV Vancomycin for pharmacy to dose Asymptomatic Bradycardia - HR in the 40-50s - He is not on any rate control or judi blocking agents - Thyroid panel within normal limits - He is not hypothermic - Will continue to monitor for heart block Resolved: S/p Hypomagnesemia - Mg 1.7--> 2.0 --> 1.8 - 2/2 inadequate intake - Replete and monitor Chronic: DM2 MIKA, Hgb stable at 8.1 HLD Plan: He is clinically stable otherwise Routine AM Labs Lipid Panel: slightly low HLD, he is already on statin TFT- normal Microalbumin-58.9 pos- he is not ACEI or ARB; he is now on low dose ACEI for renal protection Probiotic daily Repeat blood culture x 2 sometime today Accu-check QID and AC with ISS Diabetic and Dietary consult Continue PT/OT SW/CM for d/c planning Code status:1 D/c after pending repeat blood culture
[2018-04-06] MEDS: Insulin Aspart 100 Units/ML 3 ML Pen SUBCUT SCH ×4 (07:25→22:25)
[2018-04-06] MEDS: Lisinopril 10 MG Tab PO SCH (09:19)
[2018-04-06] MEDS: Rosuvastatin 10 MG Tab PO SCH (09:19)
[2018-04-06] MEDS: Acetaminophen 325 MG Tab PO PRN (09:20)
[2018-04-06] MEDS: metFORMIN 500 MG Tab PO SCH ×2 (09:20→22:21)
[2018-04-06] MEDS: Aspirin 81 MG Tab.EC PO SCH (09:20)
[2018-04-06] MEDS: Ferrous Sulfate 325 MG Tab PO SCH ×2 (09:20→17:17)
[2018-04-06] MEDS: Enoxaparin 40 MG/0.4 ML Syringe SUBCUT SCH (09:21)
[2018-04-06] MEDS: Insulin Detemir 100 Units/ML 3 ML Pen SUBCUT SCH ×2 (09:21→22:25)
[2018-04-06] MEDS: Saccharomyces Boulardii (Probiotic) 250 MG Cap PO SCH ×2 (09:24→22:22)
--- NOTE | 2018-04-06 09:24 | PCM.CONSN ---
- General Info Date of Service: 04/06/18 - Review of Systems General: Reports: No Symptoms - Patient Data Vitals - Most Recent: Last Vital Signs Temp 37.0 C 04/06/18 08:18 Pulse 57 L 04/06/18 08:18 Resp 14 04/06/18 08:18 BP 119/58 L 04/06/18 09:19 Pulse Ox 97 04/06/18 08:18 Weight - Most Recent: 123.422 kg I&O - Last 24 Hours: Intake & Output 04/05/18 04/06/18 04/06/18 22:59 06:59 14:59 Intake Total 1632 1541 Output Total 775 500 Balance 857 1041 Lab Results Last 24 Hours: Laboratory Results - last 24 hr 04/05/18 04/05/18 04/05/18 Range/Units 11:57 17:39 22:38 WBC (4.23-9.07) K/mm3 RBC (4.63-6.08) M/mm3 Hgb (13.7-17.5) gm/L Hct (40.1-51.0) % MCV (79.0-92.2) fl MCH (25.7-32.2) pg MCHC (32.2-35.5) g/dl RDW Std Deviation (35.1-43.9) fL Plt Count (163-337) K/mm3 MPV Neut % (Auto) (34.0-67.9) % Lymph % (Auto) (21.8-53.1) % [place] % (Auto) (5.3-12.2) % Eos % (Auto) (0.8-7.0) Baso % (Auto) (0.1-1.2) % Neut # (Auto) (1.78-5.38) K/mm3 Lymph # (Auto) (1.32-3.57) K/mm3 [place] # (Auto) (0.30-0.82) K/mm3 Eos # (Auto) (0.04-0.54) K/mm3 Baso # (Auto) (0.01-0.08) K/mm3 Manual Slide Review Sodium (136-145) mEq/L Potassium (3.5-5.1) mEq/L Chloride (98-107) mEq/L Carbon Dioxide (21-32) mEq/L Anion Gap (5-15) BUN (7-18) mg/dL Creatinine (0.7-1.3) mg/dL Est Cr Clr Drug Dosing mL/min Estimated GFR (MDRD) (>60) mL/min BUN/Creatinine Ratio (14-18) Glucose (80-115) mg/dL POC Glucose 143 H 99 92 (80-115) mg/dL Calcium (8.5-10.1) mg/dL Magnesium (1.8-2.4) mg/dl C-Reactive Protein (<1.0) mg/dL 04/06/18 04/06/18 04/06/18 Range/Units 06:16 06:16 07:02 WBC 5.13 (4.23-9.07) K/mm3 RBC 4.26 L (4.63-6.08) M/mm3 Hgb 8.1 L (13.7-17.5) gm/L Hct 25.4 L (40.1-51.0) % MCV 59.6 L (79.0-92.2) fl MCH 19.0 L (25.7-32.2) pg MCHC 31.9 L (32.2-35.5) g/dl RDW Std Deviation 36.8 (35.1-43.9) fL Plt Count 233 (163-337) K/mm3 MPV TNP Neut % (Auto) 74.1 H (34.0-67.9) % Lymph % (Auto) 11.3 L (21.8-53.1) % [place] % (Auto) 9.7 (5.3-12.2) % Eos % (Auto) 4.3 (0.8-7.0) Baso % (Auto) 0.4 (0.1-1.2) % Neut # (Auto) 3.80 (1.78-5.38) K/mm3 Lymph # (Auto) 0.58 L (1.32-3.57) K/mm3 [place] # (Auto) 0.50 (0.30-0.82) K/mm3 Eos # (Auto) 0.22 (0.04-0.54) K/mm3 Baso # (Auto) 0.02 (0.01-0.08) K/mm3 Manual Slide Review Abnormal smear Sodium 137 (136-145) mEq/L Potassium 3.9 (3.5-5.1) mEq/L Chloride 106 (98-107) mEq/L Carbon Dioxide 22 (21-32) mEq/L Anion Gap 12.9 (5-15) BUN 19 H (7-18) mg/dL Creatinine 1.0 (0.7-1.3) mg/dL Est Cr Clr Drug Dosing 83.34 mL/min Estimated GFR (MDRD) > 60 (>60) mL/min BUN/Creatinine Ratio 19.0 H (14-18) Glucose 96 (80-115) mg/dL POC Glucose 100 (80-115) mg/dL Calcium 9.0 (8.5-10.1) mg/dL Magnesium 1.8 (1.8-2.4) mg/dl C-Reactive Protein 13.0 H* (<1.0) mg/dL Mikael Results Last 24 Hours: Microbiology 04/04/18 20:36 Aerobic Blood Culture - Preliminary Blood - Venous - Lab Draw NO GROWTH AFTER 1 DAY Anaerobic Blood Culture - Preliminary Staphylococcus Aureus 04/04/18 20:28 Aerobic Blood Culture - Preliminary Blood - Venous NO GROWTH AFTER 1 DAY Anaerobic Blood Culture - Final 04/04/18 20:45 Wound Culture - Preliminary Foot, Right Gram Negative Rods 04/05/18 11:10 Gram Stain - Final Foot, Right Med Orders - Current: Current Medications Acetaminophen (Tylenol) 650 mg PO Q4H PRN PRN Reason: Pain (Mild 1-3)/fever Last Admin: 04/06/18 09:20 Dose: 650 mg Hydrocodone Bitart/Acetaminophen ([place] 325-5 Mg) 1 tab PO Q4H PRN PRN Reason: Pain (moderate 4-6) Albuterol/Ipratropium (Duoneb 3.0-0.5 Mg/3 Ml) 3 ml NEB Q4H PRN PRN Reason: Shortness Of Breath/wheezing Aspirin (Halfprin) 81 mg PO DAILY [facility] Last Admin: 04/06/18 09:20 Dose: 81 mg Bisacodyl (Dulcolax) 5 mg PO DAILY PRN PRN Reason: Constipation Dextrose/Water (Dextrose 50% In Water) 50 ml IVPUSH ASDIRECTED PRN PRN Reason: Hypoglycemia Docusate Sodium (Colace) 100 mg PO BID PRN PRN Reason: Constipation Enoxaparin Sodium (Lovenox) 40 mg SUBCUT DAILY [facility] Last Admin: 04/06/18 09:21 Dose: 40 mg Ferrous Sulfate (Ferrous Sulfate) 325 mg PO BIDMEALS@0800,1700 [facility] Last Admin: 04/06/18 09:20 Dose: 325 mg Hydralazine HCl (Apresoline) 20 mg IVPUSH Q4H PRN PRN Reason: Hypertension Hydromorphone HCl (Dilaudid) 0.5 mg IVPUSH Q4H PRN PRN Reason: Pain (severe 7-10) Sodium Chloride (Normal Saline) 1,000 mls @ 100 mls/hr IV ASDIRECTED [facility] Last Admin: 04/05/18 17:31 Dose: 100 mls/hr Promethazine HCl 12.5 mg/ (Sodium Chloride) 50.5 mls @ 100 mls/hr IV Q6H PRN PRN Reason: Nausea/Vomiting Piperacillin Sod/Tazobactam (Sod 4.5 gm/ Dextrose/Water) 100 mls @ 25 mls/hr IV Q8H [facility] Last Admin: 04/06/18 06:00 Dose: 25 mls/hr Vancomycin HCl 1 gm/Vancomycin HCl 500 mg/ Sodium Chloride 500 mls @ 333.025 mls/hr IV Q12H [facility] Last Admin: 04/06/18 04:24 Dose: 333.025 mls/hr Insulin Aspart (Novolog) 0 unit SUBCUT QIDACANDBED [facility]; Protocol Last Admin: 04/06/18 07:25 Dose: Not Given Insulin Detemir (Levemir) 15 unit SUBCUT BID [facility] Last Admin: 04/06/18 09:21 Dose: 15 units Lisinopril (Prinivil) 10 mg PO DAILY [facility] Last Admin: 04/06/18 09:19 Dose: 10 mg Lorazepam (Ativan) 2 mg IVPUSH Q4H PRN PRN Reason: Seizures Lorazepam (Ativan) 1 mg IV Q6H PRN PRN Reason: Nausea/Vomiting Magnesium Sulfate (Pharmacy To Dose - Magnesium Replacement) 1 dose .XX ASDIRECTED [facility] Metformin HCl (Glucophage) 500 mg PO BID [facility] Last Admin: 04/06/18 09:20 Dose: 500 mg Metoprolol Tartrate (Lopressor) 5 mg IVPUSH Q4H PRN PRN Reason: Tachycardia Ondansetron HCl (Zofran) 4 mg IV Q6H PRN PRN Reason: Nausea/Vomiting Polyethylene Glycol (Miralax) 17 gm PO DAILY PRN PRN Reason: Constipation Potassium Chloride (Pharmacy To Dose - Potassium Replacement) 1 dose .XX ASDIRECTED [facility] Rosuvastatin Calcium (Crestor) 10 mg PO DAILY [facility] Last Admin: 04/06/18 09:19 Dose: 10 mg Saccharomyces Boulardii (Florastor) 250 mg PO BID [facility] Last Admin: 04/05/18 22:41 Dose: 250 mg Senna/Docusate Sodium (Senna Plus) 1 tab PO BID PRN PRN Reason: Constipation Temazepam (Restoril) 15 mg PO BEDTIME PRN PRN Reason: Sleep Vancomycin HCl (Pharmacy To Dose - Vancomycin) 1 dose .XX ASDIRECTED [facility] Discontinued Medications Bupivacaine HCl/Epinephrine Bitart ([place] 0.5%/Epinephrine 1:200,000) Confirm Administered Dose 50 ml .ROUTE .STK-MED ONE Stop: 04/05/18 10:30 Ferrous Sulfate (Ferrous Sulfate) 325 mg PO BIDMEALS [facility] Piperacillin Sod/Tazobactam (Sod 4.5 gm/ Sodium Chloride) 100 mls @ 200 mls/hr IV Q6H [facility] Last Admin: 04/05/18 04:04 Dose: Not Given Vancomycin HCl 1 gm/ Sodium (Chloride) 250 mls @ 250 mls/hr IV ONETIME ONE Stop: 04/04/18 21:03 Last Admin: 04/04/18 20:36 Dose: 250 mls/hr Sodium Chloride (Normal Saline) Confirm Administered Dose 100 mls @ as directed .ROUTE .STK-MED ONE Stop: 04/04/18 20:15 Last Admin: 04/04/18 20:37 Dose: Not Given Magnesium Sulfate 2 gm/ Premix 50 mls @ 25 mls/hr IV ONETIME ONE Stop: 04/05/18 00:36 Last Admin: 04/05/18 00:12 Dose: 25 mls/hr Vancomycin HCl 1 gm/Vancomycin HCl 500 mg/ Sodium Chloride 500 mls @ 333.025 mls/hr IV Q12H [facility] Last Admin: 04/05/18 19:05 Dose: Not Given Piperacillin Sod/Tazobactam (Sod 4.5 gm/ Sodium Chloride) 100 mls @ 25 mls/hr IV Q8H [facility] Last Admin: 04/05/18 02:35 Dose: 25 mls/hr Piperacillin Sod/Tazobactam (Sod 4.5 gm/ Dextrose/Water) 100 mls @ 25 mls/hr IV Q8H [facility] Last Admin: 04/05/18 10:23 Dose: 25 mls/hr Lidocaine HCl (Xylocaine 1%) Confirm Administered Dose 50 ml .ROUTE .STK-MED ONE Stop: 04/05/18 11:01 Last Admin: 04/05/18 10:59 Dose: 2 ml Lidocaine/Epinephrine (Xylocaine 1% With Epinephrine 1:100,000) Confirm Administered Dose 20 ml .ROUTE .STK-MED ONE Stop: 04/05/18 10:30 Midazolam HCl (Versed 1 Mg/Ml) Confirm Administered Dose 2 mg .ROUTE .STK-MED ONE Stop: 04/05/18 10:40 - Exam Extremities: Other (Dried Betadine from drainage from the wound present in the gauze dressing.) Consult PN Assessment/Plan (1) Diabetic infection of right foot SNOMED Code(s): 08592760 Code(s): E11.628 - TYPE 2 DIABETES MELLITUS WITH OTHER SKIN COMPLICATIONS; L08.9 - LOCAL INFECTION OF THE SKIN AND SUBCUTANEOUS TISSUE, UNSP Priority: High Current Visit: Yes (2) Diabetic ulcer of right foot SNOMED Code(s): 456258989 Code(s): E11.621 - TYPE 2 DIABETES MELLITUS WITH FOOT ULCER; L97.519 - NON- PRS CHRONIC ULCER OTH PRT RIGHT FOOT W UNSP SEVERITY Priority: High Current Visit: Yes Qualifiers: Diabetic foot ulcer location: other Diabetes mellitus type: type 1 Non- pressure ulcer stage: limited to breakdown of skin Qualified Code(s): E10.621 - Type 1 diabetes mellitus with foot ulcer; L97.511 - Non-pressure chronic ulcer of other part of right foot limited to breakdown of skin Assessment:: He has no complaints today. Nursing staff report no issues. Gram stain is remarkable for gram-positive cocci and a few gram-negative rods along with a few white blood cells. Cultures are pending. Problem List Initiated/Reviewed/Updated: Yes My Orders Last 24 Hours: My Active Orders 04/05/18 10:40 Schedule Procedure [COMM] Urgent 04/05/18 11:10 CULTURE ANAEROBIC + SMEAR [RM] Urgent 04/05/18 11:42 Wound Care [RC] DAILY Plan: Dressing change today.
[2018-04-06] MEDS: Sodium Chloride 0.9% 1,000 ML IV SCH (11:19)
--- NOTE | 2018-04-06 12:16 | PCM.SN ---
- Free Text/Narrative Note: He has been bradying in the 40's but patient is asymptomatic. We reviewed his medications; he is not receiving any rate control or judi blocking agents. His EKG shows junctional bradycardia with a HR if 44.
[2018-04-07] MEDS: Sodium Chloride 0.9% 1,000 ML IV SCH ×2 (01:52→15:03)
[2018-04-07] MEDS: hydrALAZINE 20 MG/ML SDV IVPUSH PRN ×2 (04:38→12:36)
[2018-04-07] MEDS: Vancomycin 1500 MG in Sodium Chloride 0.9% 500 ML IV SCH ×3 (05:38)
[2018-04-07] MEDS: Insulin Aspart 100 Units/ML 3 ML Pen SUBCUT SCH ×4 (06:34→21:27)
[2018-04-07] MEDS: Acetaminophen 325 MG Tab PO PRN ×3 (07:39→21:14)
--- NOTE | 2018-04-07 08:31 | CR ---
Chest: Two views of the chest were obtained. Comparison: No prior study. Heart size is slightly enlarged. Tortuous thoracic aorta is seen. Lungs are clear. Degenerative change is noted within both spine. Diffuse osteophytes are seen within the thoracic spine. Impression: 1. Findings as noted above. Nothing acute is seen on two-view chest x-ray. Diagnostic code #2
--- NOTE | 2018-04-07 08:47 | PCM.PN ---
- General Info Date of Service: 04/07/18 Admission Dx/Problem (Free Text): Admission Diagnosis/Problem Admission Diagnosis/Problem Cellulitis in diabetic foot Subjective Update: In to see Jose. He is lying in bed. He slept OK. He reports a mild headache behind his right eye. He is not requesting any pain medications at this time. He denies any foot pain. No concerns. HR has been in the mid to upper 50's and he has been asymptomatic. Otherwise no nursing concerns. His sensitivities are back and we will change his antibiotic and stop the vancomycin. His blood cultures have returned insufficient quantity and will be repeated today. Likely discharge in 24-48 hours pending repeat blood cultures returning negative. Functional Status: Reports: Pain Controlled, Tolerating Diet, Ambulating, Urinating. Denies: New Symptoms - Review of Systems General: Reports: No Symptoms. Denies: Fever, Weakness, Fatigue, Malaise HEENT: Reports: No Symptoms. Denies: Ear Pain, Eye Pain, Sinus Congestion Pulmonary: Reports: No Symptoms. Denies: Shortness of Breath, Cough, Sputum, Wheezing Cardiovascular: Reports: No Symptoms. Denies: Chest Pain, Dyspnea on Exertion, Edema, Lightheadedness Gastrointestinal: Reports: Other (mildly loose stools but not diarrhea ). Denies: Abdominal Pain, Constipation, Diarrhea, Nausea Genitourinary: Reports: No Symptoms Musculoskeletal: Reports: No Symptoms. Denies: Leg Pain, Foot Pain, Joint Pain Skin: Reports: No Symptoms Neurological: Reports: No Symptoms Psychiatric: Reports: No Symptoms - Patient Data Vitals - Most Recent: Last Vital Signs Temp 98.8 F 04/07/18 04:24 Pulse 50 L 04/07/18 04:24 Resp 18 04/07/18 04:24 BP 155/80 H 04/07/18 04:44 Pulse Ox 99 04/07/18 04:24 Weight - Most Recent: 272 lb 11.2 oz I&O - Last 24 Hours: Intake & Output 04/06/18 04/07/18 04/07/18 22:59 06:59 14:59 Intake Total 1347 1729 Output Total 300 Balance 1047 1729 Lab Results Last 24 Hours: Laboratory Results - last 24 hr 04/06/18 04/06/18 04/06/18 Range/Units 11:21 16:55 17:19 WBC (4.23-9.07) K/mm3 RBC (4.63-6.08) M/mm3 Hgb (13.7-17.5) gm/L Hct (40.1-51.0) % MCV (79.0-92.2) fl MCH (25.7-32.2) pg MCHC (32.2-35.5) g/dl RDW Std Deviation (35.1-43.9) fL Plt Count (163-337) K/mm3 MPV Neut % (Auto) (34.0-67.9) % Lymph % (Auto) (21.8-53.1) % [place] % (Auto) (5.3-12.2) % Eos % (Auto) (0.8-7.0) Baso % (Auto) (0.1-1.2) % Neut # (Auto) (1.78-5.38) K/mm3 Lymph # (Auto) (1.32-3.57) K/mm3 [place] # (Auto) (0.30-0.82) K/mm3 Eos # (Auto) (0.04-0.54) K/mm3 Baso # (Auto) (0.01-0.08) K/mm3 Manual Slide Review Sodium (136-145) mEq/L Potassium (3.5-5.1) mEq/L Chloride (98-107) mEq/L Carbon Dioxide (21-32) mEq/L Anion Gap (5-15) BUN (7-18) mg/dL Creatinine (0.7-1.3) mg/dL Est Cr Clr Drug Dosing mL/min Estimated GFR (MDRD) (>60) mL/min BUN/Creatinine Ratio (14-18) Glucose (80-115) mg/dL POC Glucose 140 H 83 (80-115) mg/dL Calcium (8.5-10.1) mg/dL Magnesium (1.8-2.4) mg/dl C-Reactive Protein (<1.0) mg/dL Vancomycin Trough 11.7 (10.0-20.0) 04/06/18 04/07/18 04/07/18 Range/Units 22:20 05:45 05:50 WBC 4.08 L (4.23-9.07) K/mm3 RBC 4.63 (4.63-6.08) M/mm3 Hgb 8.8 L (13.7-17.5) gm/L Hct 27.4 L (40.1-51.0) % MCV 59.2 L (79.0-92.2) fl MCH 19.0 L (25.7-32.2) pg MCHC 32.1 L (32.2-35.5) g/dl RDW Std Deviation 36.7 (35.1-43.9) fL Plt Count 290 (163-337) K/mm3 MPV TNP Neut % (Auto) 64.7 (34.0-67.9) % Lymph % (Auto) 18.6 L (21.8-53.1) % [place] % (Auto) 9.1 (5.3-12.2) % Eos % (Auto) 6.4 (0.8-7.0) Baso % (Auto) 1.0 (0.1-1.2) % Neut # (Auto) 2.64 (1.78-5.38) K/mm3 Lymph # (Auto) 0.76 L (1.32-3.57) K/mm3 [place] # (Auto) 0.37 (0.30-0.82) K/mm3 Eos # (Auto) 0.26 (0.04-0.54) K/mm3 Baso # (Auto) 0.04 (0.01-0.08) K/mm3 Manual Slide Review Abnormal smear Sodium (136-145) mEq/L Potassium (3.5-5.1) mEq/L Chloride (98-107) mEq/L Carbon Dioxide (21-32) mEq/L Anion Gap (5-15) BUN (7-18) mg/dL Creatinine (0.7-1.3) mg/dL Est Cr Clr Drug Dosing mL/min Estimated GFR (MDRD) (>60) mL/min BUN/Creatinine Ratio (14-18) Glucose (80-115) mg/dL POC Glucose 83 78 L (80-115) mg/dL Calcium (8.5-10.1) mg/dL Magnesium (1.8-2.4) mg/dl C-Reactive Protein (<1.0) mg/dL Vancomycin Trough (10.0-20.0) 04/07/18 Range/Units 06:40 WBC (4.23-9.07) K/mm3 RBC (4.63-6.08) M/mm3 Hgb (13.7-17.5) gm/L Hct (40.1-51.0) % MCV (79.0-92.2) fl MCH (25.7-32.2) pg MCHC (32.2-35.5) g/dl RDW Std Deviation (35.1-43.9) fL Plt Count (163-337) K/mm3 MPV Neut % (Auto) (34.0-67.9) % Lymph % (Auto) (21.8-53.1) % [place] % (Auto) (5.3-12.2) % Eos % (Auto) (0.8-7.0) Baso % (Auto) (0.1-1.2) % Neut # (Auto) (1.78-5.38) K/mm3 Lymph # (Auto) (1.32-3.57) K/mm3 [place] # (Auto) (0.30-0.82) K/mm3 Eos # (Auto) (0.04-0.54) K/mm3 Baso # (Auto) (0.01-0.08) K/mm3 Manual Slide Review Sodium 141 (136-145) mEq/L Potassium 3.6 (3.5-5.1) mEq/L Chloride 110 H (98-107) mEq/L Carbon Dioxide 21 (21-32) mEq/L Anion Gap 13.6 (5-15) BUN 14 (7-18) mg/dL Creatinine 0.8 (0.7-1.3) mg/dL Est Cr Clr Drug Dosing 104.18 mL/min Estimated GFR (MDRD) > 60 (>60) mL/min BUN/Creatinine Ratio 17.5 (14-18) Glucose 78 L (80-115) mg/dL POC Glucose (80-115) mg/dL Calcium 9.3 (8.5-10.1) mg/dL Magnesium 1.7 L (1.8-2.4) mg/dl C-Reactive Protein 8.9 H* (<1.0) mg/dL Vancomycin Trough (10.0-20.0) Mikael Results Last 24 Hours: Microbiology 04/04/18 20:36 Aerobic Blood Culture - Preliminary Blood - Venous - Lab Draw NO GROWTH AFTER 2 DAYS Anaerobic Blood Culture - Preliminary Staphylococcus Aureus Not Mrsa 04/04/18 20:28 Aerobic Blood Culture - Preliminary Blood - Venous NO GROWTH AFTER 2 DAYS Anaerobic Blood Culture - Final 04/04/18 20:45 Wound Culture - Preliminary Foot, Right Gram Negative Rods Staphylococcus Aureus 04/05/18 11:10 Gram Stain - Final Foot, Right Anaerobic Culture - Preliminary Gram Negative Rods Staphylococcus Aureus Med Orders - Current: Current Medications Acetaminophen (Tylenol) 650 mg PO Q4H PRN PRN Reason: Pain (Mild 1-3)/fever Last Admin: 04/07/18 07:39 Dose: 650 mg Hydrocodone Bitart/Acetaminophen ([place] 325-5 Mg) 1 tab PO Q4H PRN PRN Reason: Pain (moderate 4-6) Albuterol/Ipratropium (Duoneb 3.0-0.5 Mg/3 Ml) 3 ml NEB Q4H PRN PRN Reason: Shortness Of Breath/wheezing Aspirin (Halfprin) 81 mg PO DAILY [facility] Last Admin: 04/06/18 09:20 Dose: 81 mg Bisacodyl (Dulcolax) 5 mg PO DAILY PRN PRN Reason: Constipation Dextrose/Water (Dextrose 50% In Water) 50 ml IVPUSH ASDIRECTED PRN PRN Reason: Hypoglycemia Docusate Sodium (Colace) 100 mg PO BID PRN PRN Reason: Constipation Enoxaparin Sodium (Lovenox) 40 mg SUBCUT DAILY [facility] Last Admin: 04/06/18 09:21 Dose: 40 mg Ferrous Sulfate (Ferrous Sulfate) 325 mg PO BIDMEALS@0800,1700 [facility] Last Admin: 04/06/18 17:17 Dose: 325 mg Hydralazine HCl (Apresoline) 20 mg IVPUSH Q4H PRN PRN Reason: Hypertension Last Admin: 04/07/18 04:38 Dose: 20 mg Hydromorphone HCl (Dilaudid) 0.5 mg IVPUSH Q4H PRN PRN Reason: Pain (severe 7-10) Sodium Chloride (Normal Saline) 1,000 mls @ 100 mls/hr IV ASDIRECTED [facility] Last Admin: 04/07/18 01:52 Dose: 100 mls/hr Promethazine HCl 12.5 mg/ (Sodium Chloride) 50.5 mls @ 100 mls/hr IV Q6H PRN PRN Reason: Nausea/Vomiting Vancomycin HCl 1 gm/Vancomycin HCl 500 mg/ Sodium Chloride 500 mls @ 333.025 mls/hr IV Q12H [facility] Last Admin: 04/07/18 05:38 Dose: 333.025 mls/hr Insulin Aspart (Novolog) 0 unit SUBCUT QIDACANDBED [facility]; Protocol Last Admin: 04/07/18 06:34 Dose: Not Given Insulin Detemir (Levemir) 15 unit SUBCUT BID [facility] Last Admin: 04/06/18 22:25 Dose: Not Given Lisinopril (Prinivil) 10 mg PO DAILY [facility] Last Admin: 04/06/18 09:19 Dose: 10 mg Lorazepam (Ativan) 2 mg IVPUSH Q4H PRN PRN Reason: Seizures Lorazepam (Ativan) 1 mg IV Q6H PRN PRN Reason: Nausea/Vomiting Magnesium Oxide (Magnesium Oxide) 800 mg PO ONETIME ONE Stop: 04/07/18 09:01 Magnesium Sulfate (Pharmacy To Dose - Magnesium Replacement) 1 dose .XX ASDIRECTED [facility] Metformin HCl (Glucophage) 500 mg PO BID [facility] Last Admin: 04/06/18 22:21 Dose: Not Given Metoprolol Tartrate (Lopressor) 5 mg IVPUSH Q4H PRN PRN Reason: Tachycardia Ondansetron HCl (Zofran) 4 mg IV Q6H PRN PRN Reason: Nausea/Vomiting Polyethylene Glycol (Miralax) 17 gm PO DAILY PRN PRN Reason: Constipation Potassium Chloride (Pharmacy To Dose - Potassium Replacement) 1 dose .XX ASDIRECTED [facility] Rosuvastatin Calcium (Crestor) 10 mg PO DAILY [facility] Last Admin: 04/06/18 09:19 Dose: 10 mg Saccharomyces Boulardii (Florastor) 250 mg PO BID [facility] Last Admin: 04/06/18 22:22 Dose: 250 mg Senna/Docusate Sodium (Senna Plus) 1 tab PO BID PRN PRN Reason: Constipation Temazepam (Restoril) 15 mg PO BEDTIME PRN PRN Reason: Sleep Vancomycin HCl (Pharmacy To Dose - Vancomycin) 0 dose .XX ASDIRECTED PRN PRN Reason: RX TO DOSE VANCOMYCIN Discontinued Medications Bupivacaine HCl/Epinephrine Bitart (Marcaine 0.5%/Epinephrine 1:200,000) Confirm Administered Dose 50 ml .ROUTE .STK-MED ONE Stop: 04/05/18 10:30 Ferrous Sulfate (Ferrous Sulfate) 325 mg PO BIDMEALS [facility] Piperacillin Sod/Tazobactam (Sod 4.5 gm/ Sodium Chloride) 100 mls @ 200 mls/hr IV Q6H [facility] Last Admin: 04/05/18 04:04 Dose: Not Given Vancomycin HCl 1 gm/ Sodium (Chloride) 250 mls @ 250 mls/hr IV ONETIME ONE Stop: 04/04/18 21:03 Last Admin: 04/04/18 20:36 Dose: 250 mls/hr Sodium Chloride (Normal Saline) Confirm Administered Dose 100 mls @ as directed .ROUTE .STK-MED ONE Stop: 04/04/18 20:15 Last Admin: 04/04/18 20:37 Dose: Not Given Magnesium Sulfate 2 gm/ Premix 50 mls @ 25 mls/hr IV ONETIME ONE Stop: 04/05/18 00:36 Last Admin: 04/05/18 00:12 Dose: 25 mls/hr Vancomycin HCl 1 gm/Vancomycin HCl 500 mg/ Sodium Chloride 500 mls @ 333.025 mls/hr IV Q12H [facility] Last Admin: 04/05/18 19:05 Dose: Not Given Piperacillin Sod/Tazobactam (Sod 4.5 gm/ Sodium Chloride) 100 mls @ 25 mls/hr IV Q8H [facility] Last Admin: 04/05/18 02:35 Dose: 25 mls/hr Piperacillin Sod/Tazobactam (Sod 4.5 gm/ Dextrose/Water) 100 mls @ 25 mls/hr IV Q8H [facility] Last Admin: 04/05/18 10:23 Dose: 25 mls/hr Piperacillin Sod/Tazobactam (Sod 4.5 gm/ Dextrose/Water) 100 mls @ 25 mls/hr IV Q8H [facility] Last Admin: 04/06/18 06:00 Dose: 25 mls/hr Lidocaine HCl (Xylocaine 1%) Confirm Administered Dose 50 ml .ROUTE .STK-MED ONE Stop: 04/05/18 11:01 Last Admin: 04/05/18 10:59 Dose: 2 ml Lidocaine/Epinephrine (Xylocaine 1% With Epinephrine 1:100,000) Confirm Administered Dose 20 ml .ROUTE .STK-MED ONE Stop: 04/05/18 10:30 Midazolam HCl (Versed 1 Mg/Ml) Confirm Administered Dose 2 mg .ROUTE .[email or web address] ONE Stop: 04/05/18 10:40 - Exam General: Alert, Oriented, Cooperative, No Acute Distress HEENT: Pupils Equal, Pupils Reactive, EOMI, Mucous Membr. Moist/[place] Neck: Supple, Trachea Midline Lungs: Clear to Auscultation, Normal Respiratory Effort, Decreased Breath Sounds Cardiovascular: Regular Rhythm, Bradycardia GI/Abdominal Exam: Normal Bowel Sounds, Soft, Non-Tender, No Organomegaly, No Distention (Male) Exam: Deferred Back Exam: Normal Inspection, Full Range of Motion Extremities: Normal Inspection, Normal Range of Motion, Non-Tender, No Pedal Edema, Normal Capillary Refill Peripheral Pulses: 1+: Posterior Tibial (L), Posterior Tibial (R), Dorsalis Pedis (L), Dorsalis Pedis (R), 2+: Radial (L), Radial (R) Skin: Warm, Dry, Intact Wound/Incisions: Healing Well Neurological: No New Focal Deficit Psy/Mental Status: Alert, Normal Affect, Normal Mood - Problem List & Annotations (1) Cellulitis of foot, right SNOMED Code(s): 020839262 Code(s): L03.115 - CELLULITIS OF RIGHT LOWER LIMB Status: Acute Current Visit: Yes (2) Diabetic infection of right foot SNOMED Code(s): 93811934 Code(s): E11.628 - TYPE 2 DIABETES MELLITUS WITH OTHER SKIN COMPLICATIONS; L08.9 - LOCAL INFECTION OF THE SKIN AND SUBCUTANEOUS TISSUE, UNSP Status: Acute Priority: High Current Visit: Yes (3) Diabetic ulcer of right foot SNOMED Code(s): 770638397 Code(s): E11.621 - TYPE 2 DIABETES MELLITUS WITH FOOT ULCER; L97.519 - NON- PRS CHRONIC ULCER OTH PRT RIGHT FOOT W UNSP SEVERITY Status: Acute Priority : High Current Visit: Yes Qualifiers: Diabetic foot ulcer location: other Diabetes mellitus type: type 1 Non- pressure ulcer stage: limited to breakdown of skin Qualified Code(s): E10.621 - Type 1 diabetes mellitus with foot ulcer; L97.511 - Non-pressure chronic ulcer of other part of right foot limited to breakdown of skin (4) Insulin dependent diabetes mellitus SNOMED Code(s): 76999680 Code(s): E11.9 - TYPE 2 DIABETES MELLITUS WITHOUT COMPLICATIONS; Z79.4 - ALF (CURRENT) USE OF INSULIN Status: Acute Current Visit: Yes (5) HLD (hyperlipidemia) SNOMED Code(s): 14519518 Code(s): E78.5 - HYPERLIPIDEMIA, UNSPECIFIED Status: Chronic Priority: Medium Current Visit: No Qualifiers: Hyperlipidemia type: unspecified Qualified Code(s): E78.5 - Hyperlipidemia , unspecified (6) Obesity (BMI 30-39.9) SNOMED Code(s): 331090314, 017289344 Code(s): E66.9 - OBESITY, UNSPECIFIED Status: Chronic Priority: Medium Current Visit: Yes (7) Bradycardia SNOMED Code(s): 39372490 Code(s): R00.1 - BRADYCARDIA, UNSPECIFIED Status: Acute Priority: High Current Visit: Yes (8) Hypomagnesemia SNOMED Code(s): 694271653 Code(s): E83.42 - HYPOMAGNESEMIA Status: Acute Priority: High Current Visit: Yes (9) Bacteremia SNOMED Code(s): 9378697 Code(s): R78.81 - BACTEREMIA Status: Acute Priority: High Current Visit : Yes (10) Anemia SNOMED Code(s): 742451202 Code(s): D64.9 - ANEMIA, UNSPECIFIED Status: Chronic Priority: Medium Current Visit: Yes Qualifiers: Anemia type: iron deficiency Iron deficiency anemia type: unspecified iron deficiency Qualified Code(s): D50.9 - Iron deficiency anemia, unspecified - Problem List Review Problem List Initiated/Reviewed/Updated: Yes - Plan Plan:: Assessment/Plan: Acute: Diabetic Foot Ulcer with Abscess and Osteomyelitis S/p I&D POD#2 - Right Foot S/p Amputation - 4 week old 25 quarter coin like ulcer on the bottom of the foot - He has been seeing a air quality specialist in [place] - He is not wearing diabetic shoes - He is on Metformin 500 mg po daily; however he admits to having 70/30 insulin but used it as needed - His last A1C is unknown--> now 6.6 - Continue IV Vancomycin and discontinue Zosyn since Blood Cx pos for GPC possible MRSA--> switch to cefepime - Wound Cx: GPC x2 and Enterobacter Cloacae, Staph Aureus not MRSA - Dr. Robertson following - will likely sign off today - BS is well controlled - CRP 17.3-->13.9-->13.0-->8.9 - No leukocytosis Bacteremia 2/2 Diabetic Foot Ulcer with Abscess and Osteomyelitis - Now afebrile - Blood culture pos for Staph Aureus not MRSA - 1 bottle - Continue IV Vancomycin for pharmacy to dose--> switch to cefepime - Repeat cultures 04/06/18 - insufficient quantity - repeat ordered for today Asymptomatic Bradycardia - HR in the 40-50s, upper 50's today - He is not on any rate control or judi blocking agents - Thyroid panel within normal limits - He is not hypothermic - Will continue to monitor for heart block Hypomagnesemia - Mg 1.7--> 2.0 --> 1.8-->1.7 - 2/2 inadequate intake - Replete and monitor Chronic: DM2 MIKA, Hgb stable at 8.1 HLD Plan: He is clinically stable and doing well Routine AM Labs Lipid Panel: slightly low HLD, he is already on statin TFT- normal Microalbumin-58.9 pos- he is not ACEI or ARB; he is now on low dose ACEI for renal protection Probiotic daily Repeat blood culture x 2 today Accu-check QID and AC with ISS Diabetic and Dietary consult Continue PT/OT SW/CM for d/c planning Code status:Full code D/c after pending repeat blood culture
[2018-04-07] MEDS ORDERED: Magnesium Oxide 400 MG Tab PO ONE (09:00)
[2018-04-07] MEDS: Saccharomyces Boulardii (Probiotic) 250 MG Cap PO SCH ×2 (09:30→21:25)
[2018-04-07] MEDS: Ferrous Sulfate 325 MG Tab PO SCH ×2 (09:31→17:50)
[2018-04-07] MEDS: Lisinopril 10 MG Tab PO SCH (09:31)
[2018-04-07] MEDS: Rosuvastatin 10 MG Tab PO SCH (09:31)
[2018-04-07] MEDS: Aspirin 81 MG Tab.EC PO SCH (09:31)
[2018-04-07] MEDS: Insulin Detemir 100 Units/ML 3 ML Pen SUBCUT SCH ×2 (09:33→21:28)
[2018-04-07] MEDS: metFORMIN 500 MG Tab PO SCH ×2 (09:33→21:16)
[2018-04-07] MEDS: Enoxaparin 40 MG/0.4 ML Syringe SUBCUT SCH (11:43)
--- NOTE | 2018-04-07 13:58 | PCM.SURGPN ---
- General Info Date of Service: 04/07/18 POD#: 2 Functional Status: Reports: Pain Controlled, Tolerating Diet, Ambulating - Patient Data Vitals - Most Recent: Last Vital Signs Temp 36.9 C 04/07/18 11:47 Pulse 53 L 04/07/18 11:47 Resp 20 04/07/18 11:47 BP 149/71 H 04/07/18 11:47 Pulse Ox 100 04/07/18 11:47 Weight - Most Recent: 123.695 kg I&O - Last 24 Hours: Intake & Output 04/06/18 04/07/18 04/07/18 22:59 06:59 14:59 Intake Total 1647 1729 90 Output Total 300 Balance 1347 1729 90 Lab Results Last 24 Hrs: Laboratory Results - last 24 hr 04/06/18 04/06/18 04/06/18 Range/Units 16:55 17:19 22:20 WBC (4.23-9.07) K/mm3 RBC (4.63-6.08) M/mm3 Hgb (13.7-17.5) gm/L Hct (40.1-51.0) % MCV (79.0-92.2) fl MCH (25.7-32.2) pg MCHC (32.2-35.5) g/dl RDW Std Deviation (35.1-43.9) fL Plt Count (163-337) K/mm3 MPV Neut % (Auto) (34.0-67.9) % Lymph % (Auto) (21.8-53.1) % Mower % (Auto) (5.3-12.2) % Eos % (Auto) (0.8-7.0) Baso % (Auto) (0.1-1.2) % Neut # (Auto) (1.78-5.38) K/mm3 Lymph # (Auto) (1.32-3.57) K/mm3 Mower # (Auto) (0.30-0.82) K/mm3 Eos # (Auto) (0.04-0.54) K/mm3 Baso # (Auto) (0.01-0.08) K/mm3 Manual Slide Review Sodium (136-145) mEq/L Potassium (3.5-5.1) mEq/L Chloride (98-107) mEq/L Carbon Dioxide (21-32) mEq/L Anion Gap (5-15) BUN (7-18) mg/dL Creatinine (0.7-1.3) mg/dL Est Cr Clr Drug Dosing mL/min Estimated GFR (MDRD) (>60) mL/min BUN/Creatinine Ratio (14-18) Glucose (80-115) mg/dL POC Glucose 83 83 (80-115) mg/dL Calcium (8.5-10.1) mg/dL Magnesium (1.8-2.4) mg/dl C-Reactive Protein (<1.0) mg/dL Vancomycin Trough 11.7 (10.0-20.0) 04/07/18 04/07/18 04/07/18 Range/Units 05:45 05:50 06:40 WBC 4.08 L (4.23-9.07) K/mm3 RBC 4.63 (4.63-6.08) M/mm3 Hgb 8.8 L (13.7-17.5) gm/L Hct 27.4 L (40.1-51.0) % MCV 59.2 L (79.0-92.2) fl MCH 19.0 L (25.7-32.2) pg MCHC 32.1 L (32.2-35.5) g/dl RDW Std Deviation 36.7 (35.1-43.9) fL Plt Count 290 (163-337) K/mm3 MPV TNP Neut % (Auto) 64.7 (34.0-67.9) % Lymph % (Auto) 18.6 L (21.8-53.1) % Mower % (Auto) 9.1 (5.3-12.2) % Eos % (Auto) 6.4 (0.8-7.0) Baso % (Auto) 1.0 (0.1-1.2) % Neut # (Auto) 2.64 (1.78-5.38) K/mm3 Lymph # (Auto) 0.76 L (1.32-3.57) K/mm3 Mower # (Auto) 0.37 (0.30-0.82) K/mm3 Eos # (Auto) 0.26 (0.04-0.54) K/mm3 Baso # (Auto) 0.04 (0.01-0.08) K/mm3 Manual Slide Review Abnormal smear Sodium 141 (136-145) mEq/L Potassium 3.6 (3.5-5.1) mEq/L Chloride 110 H (98-107) mEq/L Carbon Dioxide 21 (21-32) mEq/L Anion Gap 13.6 (5-15) BUN 14 (7-18) mg/dL Creatinine 0.8 (0.7-1.3) mg/dL Est Cr Clr Drug Dosing 104.18 mL/min Estimated GFR (MDRD) > 60 (>60) mL/min BUN/Creatinine Ratio 17.5 (14-18) Glucose 78 L (80-115) mg/dL POC Glucose 78 L (80-115) mg/dL Calcium 9.3 (8.5-10.1) mg/dL Magnesium 1.7 L (1.8-2.4) mg/dl C-Reactive Protein 8.9 H* (<1.0) mg/dL Vancomycin Trough (10.0-20.0) 04/07/18 Range/Units 11:25 WBC (4.23-9.07) K/mm3 RBC (4.63-6.08) M/mm3 Hgb (13.7-17.5) gm/L Hct (40.1-51.0) % MCV (79.0-92.2) fl MCH (25.7-32.2) pg MCHC (32.2-35.5) g/dl RDW Std Deviation (35.1-43.9) fL Plt Count (163-337) K/mm3 MPV Neut % (Auto) (34.0-67.9) % Lymph % (Auto) (21.8-53.1) % Mower % (Auto) (5.3-12.2) % Eos % (Auto) (0.8-7.0) Baso % (Auto) (0.1-1.2) % Neut # (Auto) (1.78-5.38) K/mm3 Lymph # (Auto) (1.32-3.57) K/mm3 Mower # (Auto) (0.30-0.82) K/mm3 Eos # (Auto) (0.04-0.54) K/mm3 Baso # (Auto) (0.01-0.08) K/mm3 Manual Slide Review Sodium (136-145) mEq/L Potassium (3.5-5.1) mEq/L Chloride (98-107) mEq/L Carbon Dioxide (21-32) mEq/L Anion Gap (5-15) BUN (7-18) mg/dL Creatinine (0.7-1.3) mg/dL Est Cr Clr Drug Dosing mL/min Estimated GFR (MDRD) (>60) mL/min BUN/Creatinine Ratio (14-18) Glucose (80-115) mg/dL POC Glucose 101 (80-115) mg/dL Calcium (8.5-10.1) mg/dL Magnesium (1.8-2.4) mg/dl C-Reactive Protein (<1.0) mg/dL Vancomycin Trough (10.0-20.0) Mikael Results Last 24 Hrs: Microbiology 04/05/18 11:10 Gram Stain - Final Foot, Right Anaerobic Culture - Preliminary Enterobacter Cloacae Staphylococcus Aureus Not Mrsa Gram Positive Cocci Gram Positive Cocci#2 04/04/18 20:45 Wound Culture - Preliminary Foot, Right Enterobacter Cloacae Staphylococcus Aureus Gram Positive Cocci 04/06/18 19:05 Anaerobic Blood Culture - Final Blood - Venous 04/06/18 19:25 Anaerobic Blood Culture - Final Blood - Venous - Lab Draw 04/04/18 20:36 Aerobic Blood Culture - Preliminary Blood - Venous - Lab Draw NO GROWTH AFTER 2 DAYS Anaerobic Blood Culture - Preliminary Staphylococcus Aureus Not Mrsa 04/04/18 20:28 Aerobic Blood Culture - Preliminary Blood - Venous NO GROWTH AFTER 2 DAYS Anaerobic Blood Culture - Final Med Orders - Current: Current Medications Acetaminophen (Tylenol) 650 mg PO Q4H PRN PRN Reason: Pain (Mild 1-3)/fever Last Admin: 04/07/18 07:39 Dose: 650 mg Hydrocodone Bitart/Acetaminophen (Delancey 325-5 Mg) 1 tab PO Q4H PRN PRN Reason: Pain (moderate 4-6) Albuterol/Ipratropium (Duoneb 3.0-0.5 Mg/3 Ml) 3 ml NEB Q4H PRN PRN Reason: Shortness Of Breath/wheezing Aspirin (Halfprin) 81 mg PO DAILY MIMI Last Admin: 04/07/18 09:31 Dose: 81 mg Bisacodyl (Dulcolax) 5 mg PO DAILY PRN PRN Reason: Constipation Dextrose/Water (Dextrose 50% In Water) 50 ml IVPUSH ASDIRECTED PRN PRN Reason: Hypoglycemia Docusate Sodium (Colace) 100 mg PO BID PRN PRN Reason: Constipation Enoxaparin Sodium (Lovenox) 40 mg SUBCUT DAILY [facility] Last Admin: 04/07/18 11:43 Dose: 40 mg Ferrous Sulfate (Ferrous Sulfate) 325 mg PO BIDMEALS@0800,1700 [facility] Last Admin: 04/07/18 09:31 Dose: 325 mg Hydralazine HCl (Apresoline) 20 mg IVPUSH Q4H PRN PRN Reason: Hypertension Last Admin: 04/07/18 12:36 Dose: 20 mg Hydromorphone HCl (Dilaudid) 0.5 mg IVPUSH Q4H PRN PRN Reason: Pain (severe 7-10) Sodium Chloride (Normal Saline) 1,000 mls @ 100 mls/hr IV ASDIRECTED [facility] Last Admin: 04/07/18 01:52 Dose: 100 mls/hr Promethazine HCl 12.5 mg/ (Sodium Chloride) 50.5 mls @ 100 mls/hr IV Q6H PRN PRN Reason: Nausea/Vomiting Cefepime HCl 2 gm/ Premix 50 mls @ 100 mls/hr IV Q12H [facility] Insulin Aspart (Novolog) 0 unit SUBCUT QIDACANDBED [facility]; Protocol Last Admin: 04/07/18 11:44 Dose: Not Given Insulin Detemir (Levemir) 15 unit SUBCUT BID [facility] Last Admin: 04/07/18 09:33 Dose: 15 units Lisinopril (Prinivil) 10 mg PO DAILY [facility] Last Admin: 04/07/18 09:31 Dose: 10 mg Lorazepam (Ativan) 2 mg IVPUSH Q4H PRN PRN Reason: Seizures Lorazepam (Ativan) 1 mg IV Q6H PRN PRN Reason: Nausea/Vomiting Magnesium Sulfate (Pharmacy To Dose - Magnesium Replacement) 1 dose .XX ASDIRECTED [facility] Metformin HCl (Glucophage) 500 mg PO BID [facility] Last Admin: 04/07/18 09:33 Dose: 500 mg Metoprolol Tartrate (Lopressor) 5 mg IVPUSH Q4H PRN PRN Reason: Tachycardia Ondansetron HCl (Zofran) 4 mg IV Q6H PRN PRN Reason: Nausea/Vomiting Polyethylene Glycol (Miralax) 17 gm PO DAILY PRN PRN Reason: Constipation Potassium Chloride (Pharmacy To Dose - Potassium Replacement) 1 dose .XX ASDIRECTED [facility] Rosuvastatin Calcium (Crestor) 10 mg PO DAILY [facility] Last Admin: 04/07/18 09:31 Dose: 10 mg Saccharomyces Boulardii (Florastor) 250 mg PO BID [facility] Last Admin: 04/07/18 09:30 Dose: 250 mg Senna/Docusate Sodium (Senna Plus) 1 tab PO BID PRN PRN Reason: Constipation Temazepam (Restoril) 15 mg PO BEDTIME PRN PRN Reason: Sleep Discontinued Medications Bupivacaine HCl/Epinephrine Bitart (Marcaine 0.5%/Epinephrine 1:200,000) Confirm Administered Dose 50 ml .ROUTE .STK-MED ONE Stop: 04/05/18 10:30 Ferrous Sulfate (Ferrous Sulfate) 325 mg PO BIDMEALS [facility] Piperacillin Sod/Tazobactam (Sod 4.5 gm/ Sodium Chloride) 100 mls @ 200 mls/hr IV Q6H [facility] Last Admin: 04/05/18 04:04 Dose: Not Given Vancomycin HCl 1 gm/ Sodium (Chloride) 250 mls @ 250 mls/hr IV ONETIME ONE Stop: 04/04/18 21:03 Last Admin: 04/04/18 20:36 Dose: 250 mls/hr Sodium Chloride (Normal Saline) Confirm Administered Dose 100 mls @ as directed .ROUTE .STK-MED ONE Stop: 04/04/18 20:15 Last Admin: 04/04/18 20:37 Dose: Not Given Magnesium Sulfate 2 gm/ Premix 50 mls @ 25 mls/hr IV ONETIME ONE Stop: 04/05/18 00:36 Last Admin: 04/05/18 00:12 Dose: 25 mls/hr Vancomycin HCl 1 gm/Vancomycin HCl 500 mg/ Sodium Chloride 500 mls @ 333.025 mls/hr IV Q12H [facility] Last Admin: 04/05/18 19:05 Dose: Not Given Piperacillin Sod/Tazobactam (Sod 4.5 gm/ Sodium Chloride) 100 mls @ 25 mls/hr IV Q8H [facility] Last Admin: 04/05/18 02:35 Dose: 25 mls/hr Piperacillin Sod/Tazobactam (Sod 4.5 gm/ Dextrose/Water) 100 mls @ 25 mls/hr IV Q8H [facility] Last Admin: 04/05/18 10:23 Dose: 25 mls/hr Piperacillin Sod/Tazobactam (Sod 4.5 gm/ Dextrose/Water) 100 mls @ 25 mls/hr IV Q8H [facility] Last Admin: 04/06/18 06:00 Dose: 25 mls/hr Vancomycin HCl 1 gm/Vancomycin HCl 500 mg/ Sodium Chloride 500 mls @ 333.025 mls/hr IV Q12H [facility] Last Admin: 04/07/18 05:38 Dose: 333.025 mls/hr Ceftriaxone Sodium 1 gm/ (Dextrose/Water) 100 mls @ 200 mls/hr IV Q24H [facility] Lidocaine HCl (Xylocaine 1%) Confirm Administered Dose 50 ml .ROUTE .STK-MED ONE Stop: 04/05/18 11:01 Last Admin: 04/05/18 10:59 Dose: 2 ml Lidocaine/Epinephrine (Xylocaine 1% With Epinephrine 1:100,000) Confirm Administered Dose 20 ml .ROUTE .STK-MED ONE Stop: 04/05/18 10:30 Magnesium Oxide (Magnesium Oxide) 800 mg PO ONETIME ONE Stop: 04/07/18 09:01 Last Admin: 04/07/18 09:30 Dose: 800 mg Midazolam HCl (Versed 1 Mg/Ml) Confirm Administered Dose 2 mg .ROUTE .STK-MED ONE Stop: 04/05/18 10:40 Vancomycin HCl (Pharmacy To Dose - Vancomycin) 0 dose .XX ASDIRECTED PRN PRN Reason: RX TO DOSE VANCOMYCIN - Exam Wound/Incisions: Dressing Dry and Intact - Problem List & Annotations (1) Diabetic infection of right foot SNOMED Code(s): 66247562 Code(s): E11.628 - TYPE 2 DIABETES MELLITUS WITH OTHER SKIN COMPLICATIONS; L08.9 - LOCAL INFECTION OF THE SKIN AND SUBCUTANEOUS TISSUE, UNSP Status: Acute Priority: High Current Visit: Yes (2) Diabetic ulcer of right foot SNOMED Code(s): 062072010 Code(s): E11.621 - TYPE 2 DIABETES MELLITUS WITH FOOT ULCER; L97.519 - NON- PRS CHRONIC ULCER OTH PRT RIGHT FOOT W UNSP SEVERITY Status: Acute Priority : High Current Visit: Yes Qualifiers: Diabetic foot ulcer location: other Diabetes mellitus type: type 1 Non- pressure ulcer stage: limited to breakdown of skin Qualified Code(s): E10.621 - Type 1 diabetes mellitus with foot ulcer; L97.511 - Non-pressure chronic ulcer of other part of right foot limited to breakdown of skin - Problem List Review Problem List Initiated/Reviewed/Updated: Yes - My Orders Last 24 Hours: Active Orders 24 hr Category Date Time Status BASIC METABOLIC PANEL,BMP [CHEM] AM Lab 04/08/18 05:11 Ordered BASIC METABOLIC PANEL,BMP [CHEM] AM Lab 04/09/18 05:11 Ordered C-REACTIVE PROTEIN [CHEM] AM Lab 04/08/18 05:11 Ordered C-REACTIVE PROTEIN [CHEM] AM Lab 04/09/18 05:11 Ordered CBC WITH AUTO DIFF [HEME] AM Lab 04/08/18 05:11 Ordered CULTURE BLOOD [BC] Stat Lab 04/06/18 19:05 Results CULTURE BLOOD [BC] Stat Lab 04/06/18 19:25 Results CULTURE BLOOD [BC] Stat Lab 04/07/18 13:43 Ordered CULTURE BLOOD [BC] Stat Lab 04/07/18 13:43 Ordered MAGNESIUM [CHEM] AM Lab 04/08/18 05:11 Ordered MAGNESIUM [CHEM] AM Lab 04/09/18 05:11 Ordered Cefepime [Maxipime in D5W 2 GM/50 ML] 2 gm Med 04/07/18 14:00 Active Premix Bag 1 bag IV Q12H Blood Culture x2 Reflex Set [OM.PC] Stat Oth 04/06/18 18:27 Ordered Blood Culture x2 Reflex Set [OM.PC] Stat Oth 04/07/18 13:43 Ordered Medication Orders Acetaminophen (Tylenol) 650 mg PO Q4H PRN PRN Reason: Pain (Mild 1-3)/fever Last Admin: 04/07/18 07:39 Dose: 650 mg Admin: 04/06/18 09:20 Dose: 650 mg Admin: 04/05/18 17:45 Dose: 650 mg Hydrocodone Bitart/Acetaminophen (Delancey 325-5 Mg) 1 tab PO Q4H PRN PRN Reason: Pain (moderate 4-6) Albuterol/Ipratropium (Duoneb 3.0-0.5 Mg/3 Ml) 3 ml NEB Q4H PRN PRN Reason: Shortness Of Breath/wheezing Aspirin (Halfprin) 81 mg PO DAILY [facility] Last Admin: 04/07/18 09:31 Dose: 81 mg Admin: 04/06/18 09:20 Dose: 81 mg Admin: 04/05/18 09:50 Dose: 81 mg Bisacodyl (Dulcolax) 5 mg PO DAILY PRN PRN Reason: Constipation Dextrose/Water (Dextrose 50% In Water) 50 ml IVPUSH ASDIRECTED PRN PRN Reason: Hypoglycemia Docusate Sodium (Colace) 100 mg PO BID PRN PRN Reason: Constipation Enoxaparin Sodium (Lovenox) 40 mg SUBCUT DAILY [facility] Last Admin: 04/07/18 11:43 Dose: 40 mg Admin: 04/06/18 09:21 Dose: 40 mg Admin: 04/05/18 09:50 Dose: 40 mg Ferrous Sulfate (Ferrous Sulfate) 325 mg PO BIDMEALS@0800,1700 [facility] Last Admin: 04/07/18 09:31 Dose: 325 mg Admin: 04/06/18 17:17 Dose: 325 mg Admin: 04/06/18 09:20 Dose: 325 mg Admin: 04/05/18 17:33 Dose: 325 mg Admin: 04/05/18 09:50 Dose: 325 mg Hydralazine HCl (Apresoline) 20 mg IVPUSH Q4H PRN PRN Reason: Hypertension Last Admin: 04/07/18 12:36 Dose: 20 mg Admin: 04/07/18 04:38 Dose: 20 mg Hydromorphone HCl (Dilaudid) 0.5 mg IVPUSH Q4H PRN PRN Reason: Pain (severe 7-10) Sodium Chloride (Normal Saline) 1,000 mls @ 100 mls/hr IV ASDIRECTED [facility] Last Admin: 04/07/18 01:52 Dose: 100 mls/hr Infusion: 04/06/18 21:19 Dose: 100 mls/hr Admin: 04/06/18 11:19 Dose: 100 mls/hr Infusion: 04/06/18 03:31 Dose: 100 mls/hr Admin: 04/05/18 17:31 Dose: 100 mls/hr Infusion: 04/05/18 14:53 Dose: 100 mls/hr Admin: 04/05/18 04:53 Dose: 100 mls/hr Infusion: 04/05/18 04:53 Dose: 100 mls/hr Admin: 04/04/18 20:35 Dose: 100 mls/hr Promethazine HCl 12.5 mg/ (Sodium Chloride) 50.5 mls @ 100 mls/hr IV Q6H PRN PRN Reason: Nausea/Vomiting Cefepime HCl 2 gm/ Premix 50 mls @ 100 mls/hr IV Q12H [facility] Insulin Aspart (Novolog) 0 unit SUBCUT QIDACANDBED [facility]; Protocol Last Admin: 04/07/18 11:44 Dose: Not Given Admin: 04/07/18 06:34 Dose: Not Given Admin: 04/06/18 22:25 Dose: Not Given Admin: 04/06/18 17:19 Dose: Not Given Admin: 04/06/18 11:22 Dose: Not Given Admin: 04/06/18 07:25 Dose: Not Given Admin: 04/05/18 22:42 Dose: Not Given Admin: 04/05/18 17:47 Dose: Not Given Admin: 04/05/18 17:47 Dose: Not Given Admin: 04/05/18 09:48 Dose: Not Given Insulin Detemir (Levemir) 15 unit SUBCUT BID [facility] Last Admin: 04/07/18 09:33 Dose: 15 units Admin: 04/06/18 22:25 Dose: Not Given Admin: 04/06/18 09:21 Dose: 15 units Admin: 04/05/18 22:41 Dose: 15 units Admin: 04/05/18 09:51 Dose: 15 units Lisinopril (Prinivil) 10 mg PO DAILY [facility] Last Admin: 04/07/18 09:31 Dose: 10 mg Admin: 04/06/18 09:19 Dose: 10 mg Admin: 04/05/18 09:50 Dose: 10 mg Lorazepam (Ativan) 2 mg IVPUSH Q4H PRN PRN Reason: Seizures Lorazepam (Ativan) 1 mg IV Q6H PRN PRN Reason: Nausea/Vomiting Magnesium Sulfate (Pharmacy To Dose - Magnesium Replacement) 1 dose .XX ASDIRECTED [facility] Metformin HCl (Glucophage) 500 mg PO BID [facility] Last Admin: 04/07/18 09:33 Dose: 500 mg Admin: 04/06/18 22:21 Dose: Not Given Admin: 04/06/18 09:20 Dose: 500 mg Admin: 04/05/18 22:41 Dose: 500 mg Admin: 04/05/18 09:50 Dose: 500 mg Metoprolol Tartrate (Lopressor) 5 mg IVPUSH Q4H PRN PRN Reason: Tachycardia Ondansetron HCl (Zofran) 4 mg IV Q6H PRN PRN Reason: Nausea/Vomiting Polyethylene Glycol (Miralax) 17 gm PO DAILY PRN PRN Reason: Constipation Potassium Chloride (Pharmacy To Dose - Potassium Replacement) 1 dose .XX ASDIRECTED [facility] Rosuvastatin Calcium (Crestor) 10 mg PO DAILY [facility] Last Admin: 04/07/18 09:31 Dose: 10 mg Admin: 04/06/18 09:19 Dose: 10 mg Admin: 04/05/18 09:50 Dose: 10 mg Saccharomyces Boulardii (Florastor) 250 mg PO BID [facility] Last Admin: 04/07/18 09:30 Dose: 250 mg Admin: 04/06/18 22:22 Dose: 250 mg Admin: 04/06/18 09:24 Dose: 250 mg Admin: 04/05/18 22:41 Dose: 250 mg Admin: 04/05/18 09:51 Dose: 250 mg Senna/Docusate Sodium (Senna Plus) 1 tab PO BID PRN PRN Reason: Constipation Temazepam (Restoril) 15 mg PO BEDTIME PRN PRN Reason: Sleep - Assessment Assessment (Free Text/Narrative):: Doing well. - Plan Plan (Free Text/Narrative):: Awaiting culture results. I will sign off.
[2018-04-07] MEDS ORDERED: cefTRIAXone 1 GM in Dextrose 5% in Water 100 ML IV SCH ×2 (14:00)
[2018-04-07] MEDS: Cefepime 2 GM in Premix Bag 1 BAG IV SCH (15:03)
[2018-04-08] MEDS: Cefepime 2 GM in Premix Bag 1 BAG IV SCH ×2 (01:35→14:23)
[2018-04-08] MEDS: Insulin Aspart 100 Units/ML 3 ML Pen SUBCUT SCH ×4 (06:48→22:58)
[2018-04-08] MEDS: Sodium Chloride 0.9% 1,000 ML IV SCH (07:29)
[2018-04-08] MEDS: Saccharomyces Boulardii (Probiotic) 250 MG Cap PO SCH ×2 (08:16→20:28)
[2018-04-08] MEDS: Potassium Chloride 20 MEQ Tab.ER PO SCH ×2 (08:17→12:01)
[2018-04-08] MEDS: Ferrous Sulfate 325 MG Tab PO SCH ×2 (08:17→17:53)
[2018-04-08] MEDS: Rosuvastatin 10 MG Tab PO SCH (08:17)
[2018-04-08] MEDS: metFORMIN 500 MG Tab PO SCH ×2 (08:17→22:56)
[2018-04-08] MEDS: Aspirin 81 MG Tab.EC PO SCH (08:17)
[2018-04-08] MEDS: Enoxaparin 40 MG/0.4 ML Syringe SUBCUT SCH (08:17)
[2018-04-08] MEDS: Insulin Detemir 100 Units/ML 3 ML Pen SUBCUT SCH ×2 (08:18→22:57)
[2018-04-08] MEDS: Lisinopril 10 MG Tab PO SCH (08:20)
--- NOTE | 2018-04-08 08:45 | PCM.PN ---
- General Info Date of Service: 04/08/18 Admission Dx/Problem (Free Text): Admission Diagnosis/Problem Admission Diagnosis/Problem Cellulitis in diabetic foot Subjective Update: In to see Jose. He is sitting in the chair napping. He has no concerns at this time. He has no pain. We are still attempting to locate family to get him a ride. He reportedly has a nephew in [place] at the moment who may come pick him up. He also has a son who reportedly will leave [place] on Saturday to head up here. We are also exploring discharging him to [facility], although this is not the ideal situation. Nursing will educate patient on wound care before discharge. Will provide script for wound supplies. Will discharge on oral antibiotics, continue IV antibiotics while here. He is aware he will need to follow-up with his wound care providers back home as his leg may need an operation. Nursing has no concerns. Discussed isolation with hospital program management specialist and she recommends continuing isolation while he is in our care. Hopeful for discharge tomorrow. Functional Status: Reports: Pain Controlled, Tolerating Diet, Ambulating, Urinating. Denies: New Symptoms - Review of Systems General: Reports: No Symptoms, Weakness (improving ). Denies: Fever, Fatigue, Malaise HEENT: Reports: No Symptoms Pulmonary: Reports: No Symptoms. Denies: Shortness of Breath, Cough, Sputum, Wheezing Cardiovascular: Reports: No Symptoms. Denies: Chest Pain, Dyspnea on Exertion, Edema, Lightheadedness Gastrointestinal: Reports: No Symptoms. Denies: Abdominal Pain, Constipation, Diarrhea, Nausea, Vomiting Genitourinary: Reports: No Symptoms. Denies: Dysuria, Frequency, Burning Musculoskeletal: Reports: No Symptoms. Denies: Neck Pain, Leg Pain, Foot Pain Skin: Reports: No Symptoms Neurological: Reports: No Symptoms, Gait Disturbance. Denies: Difficulty Walking Psychiatric: Reports: No Symptoms - Patient Data Vitals - Most Recent: Last Vital Signs Temp 98.4 F 04/08/18 07:40 Pulse 50 L 04/08/18 07:40 Resp 16 04/08/18 07:40 BP 135/70 04/08/18 08:20 Pulse Ox 97 04/08/18 07:40 Weight - Most Recent: 272 lb 12.8 oz I&O - Last 24 Hours: Intake & Output 04/07/18 04/08/1804/08/18 22:59 06:59 14:59 Intake Total 2868 1113 Output Total 750 Balance 2118 1113 Lab Results Last 24 Hours: Laboratory Results - last 24 hr 04/07/18 04/07/18 04/07/18 Range/Units 11:25 16:34 21:19 WBC (4.23-9.07) K/mm3 RBC (4.63-6.08) M/mm3 Hgb (13.7-17.5) gm/L Hct (40.1-51.0) % MCV (79.0-92.2) fl MCH (25.7-32.2) pg MCHC (32.2-35.5) g/dl RDW Std Deviation (35.1-43.9) fL Plt Count (163-337) K/mm3 Neut % (Auto) (34.0-67.9) % Lymph % (Auto) (21.8-53.1) % Schleicher % (Auto) (5.3-12.2) % Eos % (Auto) (0.8-7.0) Baso % (Auto) (0.1-1.2) % Neut # (Auto) (1.78-5.38) K/mm3 Lymph # (Auto) (1.32-3.57) K/mm3 Schleicher # (Auto) (0.30-0.82) K/mm3 Eos # (Auto) (0.04-0.54) K/mm3 Baso # (Auto) (0.01-0.08) K/mm3 Manual Slide Review Sodium (136-145) mEq/L Potassium (3.5-5.1) mEq/L Chloride (98-107) mEq/L Carbon Dioxide (21-32) mEq/L Anion Gap (5-15) BUN (7-18) mg/dL Creatinine (0.7-1.3) mg/dL Est Cr Clr Drug Dosing mL/min Estimated GFR (MDRD) (>60) mL/min BUN/Creatinine Ratio (14-18) Glucose (80-115) mg/dL POC Glucose 101 93 176 H (80-115) mg/dL Calcium (8.5-10.1) mg/dL Magnesium (1.8-2.4) mg/dl C-Reactive Protein (<1.0) mg/dL 04/08/18 04/08/18 04/08/18 Range/Units 05:29 06:34 06:34 WBC 4.02 L (4.23-9.07) K/mm3 RBC 4.26 L (4.63-6.08) M/mm3 Hgb 8.1 L (13.7-17.5) gm/L Hct 25.4 L (40.1-51.0) % MCV 59.6 L (79.0-92.2) fl MCH 19.0 L (25.7-32.2) pg MCHC 31.9 L (32.2-35.5) g/dl RDW Std Deviation 36.6 (35.1-43.9) fL Plt Count 249 (163-337) K/mm3 Neut % (Auto) 63.7 (34.0-67.9) % Lymph % (Auto) 17.2 L (21.8-53.1) % Schleicher % (Auto) 10.9 (5.3-12.2) % Eos % (Auto) 7.2 H (0.8-7.0) Baso % (Auto) 0.5 (0.1-1.2) % Neut # (Auto) 2.56 (1.78-5.38) K/mm3 Lymph # (Auto) 0.69 L (1.32-3.57) K/mm3 Schleicher # (Auto) 0.44 (0.30-0.82) K/mm3 Eos # (Auto) 0.29 (0.04-0.54) K/mm3 Baso # (Auto) 0.02 (0.01-0.08) K/mm3 Manual Slide Review Abnormal smear Sodium 141 (136-145) mEq/L Potassium 3.4 L (3.5-5.1) mEq/L Chloride 110 H (98-107) mEq/L Carbon Dioxide 22 (21-32) mEq/L Anion Gap 12.4 (5-15) BUN 12 (7-18) mg/dL Creatinine 0.9 (0.7-1.3) mg/dL Est Cr Clr Drug Dosing 92.60 mL/min Estimated GFR (MDRD) > 60 (>60) mL/min BUN/Creatinine Ratio 13.3 L (14-18) Glucose 120 H (80-115) mg/dL POC Glucose 65 L (80-115) mg/dL Calcium 9.5 (8.5-10.1) mg/dL Magnesium 1.8 (1.8-2.4) mg/dl C-Reactive Protein 5.2 H* (<1.0) mg/dL Mikael Results Last 24 Hours: Microbiology 04/04/18 20:28 Aerobic Blood Culture - Preliminary Blood - Venous NO GROWTH AFTER 3 DAYS Anaerobic Blood Culture - Final 04/06/18 19:25 Aerobic Blood Culture - Preliminary Blood - Venous - Lab Draw NO GROWTH AFTER 1 DAY Anaerobic Blood Culture - Final 04/06/18 19:05 Aerobic Blood Culture - Preliminary Blood - Venous NO GROWTH AFTER 1 DAY Anaerobic Blood Culture - Final 04/04/18 20:36 Aerobic Blood Culture - Preliminary Blood - Venous - Lab Draw Gram Positive Cocci Anaerobic Blood Culture - Preliminary Staphylococcus Aureus Not Mrsa 04/04/18 20:45 Wound Culture - Preliminary Foot, Right Enterobacter Cloacae Staphylococcus Aureus Streptococcus Mitis/Oralis 04/05/18 11:10 Gram Stain - Final Foot, Right Anaerobic Culture - Preliminary Enterobacter Cloacae Staphylococcus Aureus Not Mrsa Gram Positive Cocci Gram Positive Cocci#2 Med Orders - Current: Current Medications Acetaminophen (Tylenol) 650 mg PO Q4H PRN PRN Reason: Pain (Mild 1-3)/fever Last Admin: 04/07/18 21:14 Dose: 650 mg Hydrocodone Bitart/Acetaminophen ([place] 325-5 Mg) 1 tab PO Q4H PRN PRN Reason: Pain (moderate 4-6) Albuterol/Ipratropium (Duoneb 3.0-0.5 Mg/3 Ml) 3 ml NEB Q4H PRN PRN Reason: Shortness Of Breath/wheezing Aspirin (Halfprin) 81 mg PO DAILY [facility] Last Admin: 04/08/18 08:17 Dose: 81 mg Bisacodyl (Dulcolax) 5 mg PO DAILY PRN PRN Reason: Constipation Dextrose/Water (Dextrose 50% In Water) 50 ml IVPUSH ASDIRECTED PRN PRN Reason: Hypoglycemia Docusate Sodium (Colace) 100 mg PO BID PRN PRN Reason: Constipation Enoxaparin Sodium (Lovenox) 40 mg SUBCUT DAILY [facility] Last Admin: 04/08/18 08:17 Dose: 40 mg Ferrous Sulfate (Ferrous Sulfate) 325 mg PO BIDMEALS@0800,1700 [facility] Last Admin: 04/08/18 08:17 Dose: 325 mg Hydralazine HCl (Apresoline) 20 mg IVPUSH Q4H PRN PRN Reason: Hypertension Last Admin: 04/07/18 12:36 Dose: 20 mg Hydromorphone HCl (Dilaudid) 0.5 mg IVPUSH Q4H PRN PRN Reason: Pain (severe 7-10) Sodium Chloride (Normal Saline) 1,000 mls @ 100 mls/hr IV ASDIRECTED [facility] Last Admin: 04/08/18 07:29 Dose: 100 mls/hr Promethazine HCl 12.5 mg/ (Sodium Chloride) 50.5 mls @ 100 mls/hr IV Q6H PRN PRN Reason: Nausea/Vomiting Cefepime HCl 2 gm/ Premix 50 mls @ 100 mls/hr IV Q12H [facility] Last Admin: 04/08/18 01:35 Dose: 100 mls/hr Insulin Aspart (Novolog) 0 unit SUBCUT QIDACANDBED [facility]; Protocol Last Admin: 04/08/18 06:48 Dose: Not Given Insulin Detemir (Levemir) 15 unit SUBCUT BID [facility] Last Admin: 04/08/18 08:18 Dose: 15 units Lisinopril (Prinivil) 10 mg PO DAILY [facility] Last Admin: 04/08/18 08:20 Dose: 10 mg Lorazepam (Ativan) 2 mg IVPUSH Q4H PRN PRN Reason: Seizures Lorazepam (Ativan) 1 mg IV Q6H PRN PRN Reason: Nausea/Vomiting Magnesium Sulfate (Pharmacy To Dose - Magnesium Replacement) 1 dose .XX ASDIRECTED [facility] Metformin HCl (Glucophage) 500 mg PO BID [facility] Last Admin: 04/08/18 08:17 Dose: 500 mg Metoprolol Tartrate (Lopressor) 5 mg IVPUSH Q4H PRN PRN Reason: Tachycardia Ondansetron HCl (Zofran) 4 mg IV Q6H PRN PRN Reason: Nausea/Vomiting Polyethylene Glycol (Miralax) 17 gm PO DAILY PRN PRN Reason: Constipation Potassium Chloride (Pharmacy To Dose - Potassium Replacement) 1 dose .XX ASDIRECTED [facility] Potassium Chloride (Klor-Con M20) 40 meq PO Q4H [facility] Stop: 04/08/18 12:01 Last Admin: 04/08/18 08:17 Dose: 40 meq Rosuvastatin Calcium (Crestor) 10 mg PO DAILY [facility] Last Admin: 04/08/18 08:17 Dose: 10 mg Saccharomyces Boulardii (Florastor) 250 mg PO BID [facility] Last Admin: 04/08/18 08:16 Dose: 250 mg Senna/Docusate Sodium (Senna Plus) 1 tab PO BID PRN PRN Reason: Constipation Temazepam (Restoril) 15 mg PO BEDTIME PRN PRN Reason: Sleep Discontinued Medications Bupivacaine HCl/Epinephrine Bitart (Marcaine 0.5%/Epinephrine 1:200,000) Confirm Administered Dose 50 ml .ROUTE .STK-MED ONE Stop: 04/05/18 10:30 Ferrous Sulfate (Ferrous Sulfate) 325 mg PO BIDMEALS [facility] Piperacillin Sod/Tazobactam (Sod 4.5 gm/ Sodium Chloride) 100 mls @ 200 mls/hr IV Q6H [facility] Last Admin: 04/05/18 04:04 Dose: Not Given Vancomycin HCl 1 gm/ Sodium (Chloride) 250 mls @ 250 mls/hr IV ONETIME ONE Stop: 04/04/18 21:03 Last Admin: 04/04/18 20:36 Dose: 250 mls/hr Sodium Chloride (Normal Saline) Confirm Administered Dose 100 mls @ as directed .ROUTE .STK-MED ONE Stop: 04/04/18 20:15 Last Admin: 04/04/18 20:37 Dose: Not Given Magnesium Sulfate 2 gm/ Premix 50 mls @ 25 mls/hr IV ONETIME ONE Stop: 04/05/18 00:36 Last Admin: 04/05/18 00:12 Dose: 25 mls/hr Vancomycin HCl 1 gm/Vancomycin HCl 500 mg/ Sodium Chloride 500 mls @ 333.025 mls/hr IV Q12H [facility] Last Admin: 04/05/18 19:05 Dose: Not Given Piperacillin Sod/Tazobactam (Sod 4.5 gm/ Sodium Chloride) 100 mls @ 25 mls/hr IV Q8H [facility] Last Admin: 04/05/18 02:35 Dose: 25 mls/hr Piperacillin Sod/Tazobactam (Sod 4.5 gm/ Dextrose/Water) 100 mls @ 25 mls/hr IV Q8H [facility] Last Admin: 04/05/18 10:23 Dose: 25 mls/hr Piperacillin Sod/Tazobactam (Sod 4.5 gm/ Dextrose/Water) 100 mls @ 25 mls/hr IV Q8H [facility] Last Admin: 04/06/18 06:00 Dose: 25 mls/hr Vancomycin HCl 1 gm/Vancomycin HCl 500 mg/ Sodium Chloride 500 mls @ 333.025 mls/hr IV Q12H [facility] Last Admin: 04/07/18 05:38 Dose: 333.025 mls/hr Ceftriaxone Sodium 1 gm/ (Dextrose/Water) 100 mls @ 200 mls/hr IV Q24H [facility] Lidocaine HCl (Xylocaine 1%) Confirm Administered Dose 50 ml .ROUTE .STK-MED ONE Stop: 04/05/18 11:01 Last Admin: 04/05/18 10:59 Dose: 2 ml Lidocaine/Epinephrine (Xylocaine 1% With Epinephrine 1:100,000) Confirm Administered Dose 20 ml .ROUTE .STK-MED ONE Stop: 04/05/18 10:30 Magnesium Oxide (Magnesium Oxide) 800 mg PO ONETIME ONE Stop: 04/07/18 09:01 Last Admin: 04/07/18 09:30 Dose: 800 mg Midazolam HCl (Versed 1 Mg/Ml) Confirm Administered Dose 2 mg .ROUTE .STK-MED ONE Stop: 04/05/18 10:40 Vancomycin HCl (Pharmacy To Dose - Vancomycin) 0 dose .XX ASDIRECTED PRN PRN Reason: RX TO DOSE VANCOMYCIN - Exam Quality Assessment: DVT Prophylaxis General: Alert, Oriented, Cooperative, No Acute Distress HEENT: Pupils Equal, Pupils Reactive, EOMI, Mucous Membr. Moist/[place] Neck: Supple, Trachea Midline, No JVD Lungs: Clear to Auscultation, Normal Respiratory Effort Cardiovascular: Regular Rate, Regular Rhythm GI/Abdominal Exam: Normal Bowel Sounds, Soft, Non-Tender, No Organomegaly, No Distention, No Abnormal Bruit, No Mass, Pelvis Stable (Male) Exam: Deferred Back Exam: Normal Inspection, Full Range of Motion Extremities: Normal Range of Motion, Non-Tender, No Pedal Edema, Normal Capillary Refill, Other (Wound improving. ). No: Leg Pain, Increased Warmth, Redness Peripheral Pulses: 2+: Radial (L), Radial (R), Posterior Tibial (L), Dorsalis Pedis (L) Skin: Warm, Dry, Intact Wound/Incisions: Healing Well, Dressing Dry and Intact, No Drainage Neurological: No New Focal Deficit Psy/Mental Status: Alert, Normal Affect, Normal Mood - Problem List & Annotations (1) Cellulitis of foot, right SNOMED Code(s): 439164541 Code(s): L03.115 - CELLULITIS OF RIGHT LOWER LIMB Status: Acute Current Visit: Yes (2) Diabetic infection of right foot SNOMED Code(s): 75069053 Code(s): E11.628 - TYPE 2 DIABETES MELLITUS WITH OTHER SKIN COMPLICATIONS; L08.9 - LOCAL INFECTION OF THE SKIN AND SUBCUTANEOUS TISSUE, UNSP Status: Acute Priority: High Current Visit: Yes (3) Diabetic ulcer of right foot SNOMED Code(s): 460570342 Code(s): E11.621 - TYPE 2 DIABETES MELLITUS WITH FOOT ULCER; L97.519 - NON- PRS CHRONIC ULCER OTH PRT RIGHT FOOT W UNSP SEVERITY Status: Acute Priority : High Current Visit: Yes Qualifiers: Diabetic foot ulcer location: other Diabetes mellitus type: type 1 Non- pressure ulcer stage: limited to breakdown of skin Qualified Code(s): E10.621 - Type 1 diabetes mellitus with foot ulcer; L97.511 - Non-pressure chronic ulcer of other part of right foot limited to breakdown of skin (4) Insulin dependent diabetes mellitus SNOMED Code(s): 27463387 Code(s): E11.9 - TYPE 2 DIABETES MELLITUS WITHOUT COMPLICATIONS; Z79.4 - GUIDE SETTER (CURRENT) USE OF INSULIN Status: Acute Current Visit: Yes (5) HLD (hyperlipidemia) SNOMED Code(s): 12831230 Code(s): E78.5 - HYPERLIPIDEMIA, UNSPECIFIED Status: Chronic Priority: Medium Current Visit: No Qualifiers: Hyperlipidemia type: unspecified Qualified Code(s): E78.5 - Hyperlipidemia , unspecified (6) Obesity (BMI 30-39.9) SNOMED Code(s): 513644954, 501376485 Code(s): E66.9 - OBESITY, UNSPECIFIED Status: Chronic Priority: Medium Current Visit: Yes (7) Bradycardia SNOMED Code(s): 73858691 Code(s): R00.1 - BRADYCARDIA, UNSPECIFIED Status: Acute Priority: High Current Visit: Yes (8) Hypomagnesemia SNOMED Code(s): 144696359 Code(s): E83.42 - HYPOMAGNESEMIA Status: Acute Priority: High Current Visit: Yes (9) Bacteremia SNOMED Code(s): 4205632 Code(s): R78.81 - BACTEREMIA Status: Acute Priority: High Current Visit : Yes (10) Anemia SNOMED Code(s): 273035388 Code(s): D64.9 - ANEMIA, UNSPECIFIED Status: Chronic Priority: Medium Current Visit: Yes Qualifiers: Anemia type: iron deficiency Iron deficiency anemia type: unspecified iron deficiency Qualified Code(s): D50.9 - Iron deficiency anemia, unspecified (11) Hypokalemia SNOMED Code(s): 12284001 Code(s): E87.6 - HYPOKALEMIA Status: Acute Current Visit: Yes - Problem List Review Problem List Initiated/Reviewed/Updated: Yes - My Orders Last 24 Hours: My Active Orders 04/07/18 13:43 Blood Culture x2 Reflex Set [OM.PC] Stat 04/07/18 14:00 Cefepime [Maxipime in D5W 2 GM/50 ML] 2 gm Premix Bag 1 bag IV Q12H 04/07/18 14:17 CULTURE BLOOD [BC] Stat 04/07/18 14:26 CULTURE BLOOD [BC] Stat - Plan Plan:: Assessment/Plan: Acute: Diabetic Foot Ulcer with Abscess and Osteomyelitis S/p I&D POD#3 - Right Foot S/p Amputation - 4 week old 25 quarter coin like ulcer on the bottom of the foot - He has been seeing a locator specialist in [place] - He is not wearing diabetic shoes - He is on Metformin 500 mg po daily; however he admits to having 70/30 insulin but used it as needed - His last A1C is unknown--> now 6.6 - Continue IV Vancomycin and discontinue Zosyn since Blood Cx pos for GPC possible MRSA--> switch to cefepime IV - Wound Cx: GPC x2 and Enterobacter Cloacae, Staph Aureus not MRSA - Dr. Robertson following - signed off yesterday - BS is well controlled - CRP 17.3-->13.9-->13.0-->8.9-->5.2 - No leukocytosis - Will need follow-up when he returns home Bacteremia 2/2 Diabetic Foot Ulcer with Abscess and Osteomyelitis - Now afebrile - Blood culture pos for Staph Aureus not MRSA - 1 bottle - Continue IV Vancomycin for pharmacy to dose--> switch to cefepime - Repeat cultures 04/06/18 - insufficient quantity - repeat negative thus far Asymptomatic Bradycardia - HR in the 40-50s, lower 50's today - He is not on any rate control or judi blocking agents - Thyroid panel within normal limits - He is not hypothermic - Will continue to monitor for heart block Hypokalemia - Potassium 3.4 - Pharmacy to monitor and supplement Resolved: Hypomagnesemia - Mg 1.7--> 2.0 --> 1.8-->1.7-->1.8 - 2/2 inadequate intake - Replete and monitor Chronic: DM2 MIKA, Hgb stable at 8.1 HLD Plan: He is clinically stable and doing well Routine AM Labs Lipid Panel: slightly low HLD, he is already on statin TFT- normal Microalbumin-58.9 pos- he is not ACEI or ARB; he is now on low dose ACEI for renal protection Probiotic daily Repeat blood culture x 2 today Accu-check QID and AC with ISS Diabetic and Dietary consult Continue PT/OT SW/CM for d/c planning Code status:Full code LOS >96 hours due to need for IV antibiotics and difficulty locating family to plan to come get patient as he is not from the area.
[2018-04-08] MEDS: hydrALAZINE 20 MG/ML SDV IVPUSH PRN (12:04)
[2018-04-08] MEDS: Acetaminophen 325 MG Tab PO PRN (13:37)
[2018-04-09] MEDS: Cefepime 2 GM in Premix Bag 1 BAG IV SCH (01:40)
[2018-04-09] MEDS: Insulin Aspart 100 Units/ML 3 ML Pen SUBCUT SCH ×2 (08:12→13:00)
[2018-04-09] MEDS: Insulin Detemir 100 Units/ML 3 ML Pen SUBCUT SCH (08:12)
[2018-04-09] MEDS: metFORMIN 500 MG Tab PO SCH (08:13)
[2018-04-09] MEDS: Enoxaparin 40 MG/0.4 ML Syringe SUBCUT SCH (08:14)
[2018-04-09] MEDS: Saccharomyces Boulardii (Probiotic) 250 MG Cap PO SCH (08:14)
[2018-04-09] MEDS: Ferrous Sulfate 325 MG Tab PO SCH (08:15)
[2018-04-09] MEDS: Aspirin 81 MG Tab.EC PO SCH (08:15)
[2018-04-09] MEDS: Rosuvastatin 10 MG Tab PO SCH (08:15)
[2018-04-09] MEDS: Lisinopril 10 MG Tab PO SCH (08:15)
--- NOTE | 2018-04-09 08:22 | PCM.DCSUM1 ---
Discharge Summary - Hospital Course HPI Initial Comments: This is a 68 yo elderly white male with 5-6 year hx/o ID-DM2, HLD, MIKA and Obesity who comes in for evaluation of possible foot infection. He has been having fever, chills, sweats, and disorientation for the past 3-4 days while traveling along with friends on their way to [place] to attend a graduation ceremony of a family member. Patient comes to us all the way from [place]. According to patient, he has a stump on the right foot and at the bottom is an ulcer that is being has bee going on for 4 weeks now. He is seeing a collection specialist in [place] for it. He checks his sugar from time to time. His last A1C is unknown. Patient reports having peripheral neuropathy on both leg. His initial workup in emergency department shows a CBC remarkable for WBC of 9.19, hemoglobin of 9.6, hematocrit of 29.7, MCV of 59.2, MCH of 19.2, neutrophils of 83.3%, and lymphocytes of 6.3%. His chemistry is remarkable for BUN of 28, glucose of 152, magnesium of 1.7, CRP of 17.3, and albumin of 3.2. His chest x-ray shows no acute abnormal findings. Patient is being admitted for sepsis and management of diabetic foot ulcer. He is full code. - Discharge Data Discharge Date: 04/09/18 (Admit date: 04/04/18) Discharge Disposition: Home, Self-Care 01 Condition: Good - Discharge Diagnosis/Problem(s) (1) Cellulitis of foot, right SNOMED Code(s): 431354512 ICD Code: L03.115 - CELLULITIS OF RIGHT LOWER LIMB Status: Acute Current Visit: Yes (2) Diabetic infection of right foot SNOMED Code(s): 33768542 ICD Code: E11.628 - TYPE 2 DIABETES MELLITUS WITH OTHER SKIN COMPLICATIONS; L08.9 - LOCAL INFECTION OF THE SKIN AND SUBCUTANEOUS TISSUE, UNSP Status: Acute Priority: High Current Visit: Yes (3) Diabetic ulcer of right foot SNOMED Code(s): 888427505 ICD Code: E11.621 - TYPE 2 DIABETES MELLITUS WITH FOOT ULCER; L97.519 - NON- PRS CHRONIC ULCER OTH PRT RIGHT FOOT W UNSP SEVERITY Status: Acute Priority : High Current Visit: Yes Qualifiers: Diabetic foot ulcer location: other Diabetes mellitus type: type 1 Non- pressure ulcer stage: limited to breakdown of skin Qualified Code(s): E10.621 - Type 1 diabetes mellitus with foot ulcer; L97.511 - Non-pressure chronic ulcer of other part of right foot limited to breakdown of skin (4) Insulin dependent diabetes mellitus SNOMED Code(s): 64522775 ICD Code: E11.9 - TYPE 2 DIABETES MELLITUS WITHOUT COMPLICATIONS; Z79.4 - PHYS ASSISTANT (CURRENT) USE OF INSULIN Status: Acute Current Visit: Yes (5) HLD (hyperlipidemia) SNOMED Code(s): 38419292 ICD Code: E78.5 - HYPERLIPIDEMIA, UNSPECIFIED Status: Chronic Priority: Medium Current Visit: No Qualifiers: Hyperlipidemia type: unspecified Qualified Code(s): E78.5 - Hyperlipidemia , unspecified (6) Obesity (BMI 30-39.9) SNOMED Code(s): 978381086, 357979343 ICD Code: E66.9 - OBESITY, UNSPECIFIED Status: Chronic Priority: Medium Current Visit: Yes (7) Bradycardia SNOMED Code(s): 99923152 ICD Code: R00.1 - BRADYCARDIA, UNSPECIFIED Status: Acute Priority: High Current Visit: Yes (8) Hypomagnesemia SNOMED Code(s): 011816175 ICD Code: E83.42 - HYPOMAGNESEMIA Status: Acute Priority: High Current Visit: Yes (9) Bacteremia SNOMED Code(s): 8750127 ICD Code: R78.81 - BACTEREMIA Status: Acute Priority: High Current Visit: Yes (10) Anemia SNOMED Code(s): 629773553 ICD Code: D64.9 - ANEMIA, UNSPECIFIED Status: Chronic Priority: Medium Current Visit: Yes Qualifiers: Anemia type: iron deficiency Iron deficiency anemia type: unspecified iron deficiency Qualified Code(s): D50.9 - Iron deficiency anemia, unspecified (11) Hypokalemia SNOMED Code(s): 18663016 ICD Code: E87.6 - HYPOKALEMIA Status: Acute Current Visit: Yes - Patient Summary/Data Operative Procedure(s) Performed: 1. Level 4 DFU debridement (skin, subcutaneous tissue, fascia, and bone). 2. Incision and drainage of a subcutaneous plantar stump abscess, with 3 L irrigation debridement Consults: Consultations 04/04/18 22:29 Consult to Case Management [CONS] Routine Consult to Diabetic Nurse Specialist [CONS] Routine Consult to Assembler [employer]wear [CONS] Routine Consult to Facilities Supervisor [CONS] Routine Consult to Spiritual Care [CONS] Routine OT Evaluation and Treatment [CONS] Routine PT Evaluation and Treatment [CONS] Routine 04/05/18 09:43 Consult to Physician [CONS] Routine 04/08/18 12:57 Consult to Physical Therapy [PT Evaluation and Treatment] [CONS] Routine Labs Pending at D/C: None Recommended Follow-up Testing/Procedures: Follow-up with your primary care provider as soon as you return home. Ideally this would be within 7-10 days of discharge. Follow-up with your collection specialist once you get back home. This is very important. Hospital Course: Assessment/Plan: Acute: Diabetic Foot Ulcer with Abscess and Osteomyelitis S/p I&D POD#3 - Right Foot S/p Amputation - 4 week old 25 quarter coin like ulcer on the bottom of the foot - He has been seeing a collection specialist in [place] - He is not wearing diabetic shoes - He is on Metformin 500 mg po daily; however he admits to having 70/30 insulin but used it as needed - His last A1C is unknown--> now 6.6 - Continue IV Vancomycin and discontinue Zosyn since Blood Cx pos for GPC possible MRSA--> switch to cefepime IV - Wound Cx: Enterobacter Cloacae, Staph Aureus not MRSA, Streptococcus Mitis/ Oralis, Enterococcus Faecalis - Dr. Robertson following - signed off yesterday - BS is well controlled - CRP 17.3-->13.9-->13.0-->8.9-->5.2-->3.4 - No leukocytosis - Will need follow-up when he returns home - PT to fit patient for post-op walking shoe Bacteremia 2/2 Diabetic Foot Ulcer with Abscess and Osteomyelitis - Now afebrile - Blood culture pos for Staph Aureus not MRSA - Continue IV Vancomycin for pharmacy to dose--> switch to cefepime - Repeat cultures 04/06/18 - insufficient quantity - repeat negative thus far Asymptomatic Bradycardia - HR in the 40-50s, lower 50's today - He is not on any rate control or judi blocking agents - Thyroid panel within normal limits - He is not hypothermic - Will continue to monitor for heart block Resolved: Hypokalemia - Potassium 3.4-->3.9 - Pharmacy to monitor and supplement Hypomagnesemia - Mg 1.7--> 2.0 --> 1.8-->1.7-->1.8 - 2/2 inadequate intake - Replete and monitor Chronic: DM2 MIKA, Hgb stable at 8.5 HLD Plan: He is clinically stable and doing well Routine AM Labs Lipid Panel: slightly low HLD, he is already on statin TFT- normal Microalbumin-58.9 pos- he is not ACEI or ARB; he is now on low dose ACEI for renal protection Probiotic daily Accu-check QID and AC with ISS Diabetic and Dietary consult Continue PT/OT SW/CM for d/c planning Code status:Full code LOS >96 hours due to need for IV antibiotics and difficulty locating family to plan to come get patient as he is not from the area. Overall Bill has done quite well. Dr. Robertson debrided his right foot. He is fearful that the foot does have osteomyelitis. The decision was made to defer further investigation until the patient returns home to his regular wound care provider. He was bacteremic with Staph Aureus not MRSA. His wound culture was very dirty and is listed above. He has been receiving wound care daily and will be sent home with supplies as well as a prescription for more supplies if needed. He will be sent on 12 days of Bactrim DS. He was instructed to follow- up with his PCP and collection specialist once he gets back home. This is very important. Case management has been heavily involved as he was dropped off here by family on their way to a graduation and they have since returned home. He will be discharged to the [facility] here for one night. His son is reportedly driving up from [place] and should be here tomorrow to pick him up and bring him home. He requested and was given a post-surgical shoe to leave with. He is doing well. He will be discharged today. He has been started on an ACEI as well for renal protection. - Patient Instructions Diet: Diabetic Diet Activity: As Tolerated Driving: Do Not Drive Notify Provider of: Fever, Increased Pain, Swelling and Redness, Drainage ( worsening or worse smelling ) - Discharge Plan Prescriptions/Med Rec: Lisinopril [Prinivil] 10 mg PO DAILY #30 tablet Saccharomyces Boulardii [Florastor] 250 mg PO BID #60 cap Sulfamethoxazole/Trimethoprim [Bactrim Ds Tablet] 1 each PO BID #24 tablet Home Medications: Home Meds Aspirin [Halfprin] 81 mg PO DAILY 04/04/18 [History] Ferrous Sulfate 325 mg PO BID 04/04/18 [History] atorvaSTATin Calcium [Atorvastatin Calcium] 40 mg PO DAILY 04/04/18 [History] metFORMIN HCl [Metformin HCl] 500 mg PO DAILY 04/04/18 [History] Lisinopril [Prinivil] 10 mg PO DAILY #30 tablet 04/09/18 [Rx] Saccharomyces Boulardii [Florastor] 250 mg PO BID #60 cap 04/09/18 [Rx] Sulfamethoxazole/Trimethoprim [Bactrim Ds Tablet] 1 each PO BID #24 tablet 04/09 [Rx] Patient Handouts: Cellulitis, Adult, [id number] - Discharge Summary/Plan Comment DC Time >30 min.: Yes (45 mins ) - General Info Date of Service: 04/09/18 Admission Dx/Problem (Free Text: Admission Diagnosis/Problem Admission Diagnosis/Problem Cellulitis in diabetic foot Subjective Update: In to see Bill. He is lying in bed. He has no complaints or concerns. He is doing well. Repeat blood cultures were negative. No nursing concerns. He will be discharged today. Functional Status: Reports: Pain Controlled, Tolerating Diet, Ambulating, Urinating. Denies: New Symptoms - Review of Systems General: Reports: No Symptoms. Denies: Fever, Weakness, Fatigue, Malaise HEENT: Reports: No Symptoms. Denies: Eye Pain, Sore Throat Pulmonary: Reports: No Symptoms. Denies: Shortness of Breath, Pleuritic Chest Pain, Cough, Sputum, Wheezing Cardiovascular: Reports: No Symptoms. Denies: Chest Pain, Palpitations, Dyspnea on Exertion, Lightheadedness Gastrointestinal: Reports: No Symptoms. Denies: Abdominal Pain, Constipation, Diarrhea, Nausea, Vomiting Genitourinary: Reports: No Symptoms. Denies: Dysuria, Frequency, Burning, Pain Musculoskeletal: Reports: No Symptoms. Denies: Neck Pain, Leg Pain, Foot Pain, Joint Pain Skin: Reports: No Symptoms Neurological: Reports: No Symptoms Psychiatric: Reports: No Symptoms - Patient Data Vitals - Most Recent: Last Vital Signs Temp 98.8 F 05/23/18 07:42 Pulse 51 L 04/09/18 07:42 Resp 16 04/09/18 07:42 BP 157/78 H 04/09/18 08:15 Pulse Ox 97 04/09/18 07:42 Weight - Most Recent: 272 lb 9.6 oz I&O - Last 24 hours: Intake & Output 04/08/18 04/09/18 04/09/18 22:59 06:59 14:59 Intake Total 2201 600 Balance 2201 600 Lab Results - Last 24 hrs: Laboratory Results - last 24 hr 04/08/18 04/08/18 04/08/18 Range/Units 06:32 11:20 17:00 WBC (4.23-9.07) K/mm3 RBC (4.63-6.08) M/mm3 Hgb (13.7-17.5) gm/L Hct (40.1-51.0) % MCV (79.0-92.2) fl MCH (25.7-32.2) pg MCHC (32.2-35.5) g/dl RDW Std Deviation (35.1-43.9) fL Plt Count (163-337) K/mm3 Neut % (Auto) (34.0-67.9) % Lymph % (Auto) (21.8-53.1) % [place] % (Auto) (5.3-12.2) % Eos % (Auto) (0.8-7.0) Baso % (Auto) (0.1-1.2) % Neut # (Auto) (1.78-5.38) K/mm3 Lymph # (Auto) (1.32-3.57) K/mm3 [place] # (Auto) (0.30-0.82) K/mm3 Eos # (Auto) (0.04-0.54) K/mm3 Baso # (Auto) (0.01-0.08) K/mm3 Sodium (136-145) mEq/L Potassium (3.5-5.1) mEq/L Chloride (98-107) mEq/L Carbon Dioxide (21-32) mEq/L Anion Gap (5-15) BUN (7-18) mg/dL Creatinine (0.7-1.3) mg/dL Est Cr Clr Drug Dosing mL/min Estimated GFR (MDRD) (>60) mL/min BUN/Creatinine Ratio (14-18) Glucose (80-115) mg/dL POC Glucose 120 H 146 H 89 (80-115) mg/dL Calcium (8.5-10.1) mg/dL Magnesium (1.8-2.4) mg/dl C-Reactive Protein (<1.0) mg/dL 04/08/18 04/09/18 04/09/18 Range/Units 22:13 05:40 05:40 WBC (4.23-9.07) K/mm3 RBC (4.63-6.08) M/mm3 Hgb (13.7-17.5) gm/L Hct (40.1-51.0) % MCV (79.0-92.2) fl MCH (25.7-32.2) pg MCHC (32.2-35.5) g/dl RDW Std Deviation (35.1-43.9) fL Plt Count (163-337) K/mm3 Neut % (Auto) (34.0-67.9) % Lymph % (Auto) (21.8-53.1) % [place] % (Auto) (5.3-12.2) % Eos % (Auto) (0.8-7.0) Baso % (Auto) (0.1-1.2) % Neut # (Auto) (1.78-5.38) K/mm3 Lymph # (Auto) (1.32-3.57) K/mm3 [place] # (Auto) (0.30-0.82) K/mm3 Eos # (Auto) (0.04-0.54) K/mm3 Baso # (Auto) (0.01-0.08) K/mm3 Sodium 139 (136-145) mEq/L Potassium 3.9 (3.5-5.1) mEq/L Chloride 109 H (98-107) mEq/L Carbon Dioxide 22 (21-32) mEq/L Anion Gap 11.9 (5-15) BUN 10 (7-18) mg/dL Creatinine 0.9 (0.7-1.3) mg/dL Est Cr Clr Drug Dosing 92.60 mL/min Estimated GFR (MDRD) > 60 (>60) mL/min BUN/Creatinine Ratio 11.1 L (14-18) Glucose 94 (80-115) mg/dL POC Glucose 103 82 (80-115) mg/dL Calcium 9.7 (8.5-10.1) mg/dL Magnesium 1.8 (1.8-2.4) mg/dl C-Reactive Protein 3.4 H* (<1.0) mg/dL 04/09/18 Range/Units 07:01 WBC 4.64 (4.23-9.07) K/mm3 RBC 4.49 L (4.63-6.08) M/mm3 Hgb 8.5 L (13.7-17.5) gm/L Hct 26.7 L (40.1-51.0) % MCV 59.5 L (79.0-92.2) fl MCH 18.9 L (25.7-32.2) pg MCHC 31.8 L (32.2-35.5) g/dl RDW Std Deviation 36.7 (35.1-43.9) fL Plt Count 248 (163-337) K/mm3 Neut % (Auto) 65.7 (34.0-67.9) % Lymph % (Auto) 19.4 L (21.8-53.1) % [place] % (Auto) 7.8 (5.3-12.2) % Eos % (Auto) 6.3 (0.8-7.0) Baso % (Auto) 0.6 (0.1-1.2) % Neut # (Auto) 3.05 (1.78-5.38) K/mm3 Lymph # (Auto) 0.90 L (1.32-3.57) K/mm3 [place] # (Auto) 0.36 (0.30-0.82) K/mm3 Eos # (Auto) 0.29 (0.04-0.54) K/mm3 Baso # (Auto) 0.03 (0.01-0.08) K/mm3 Sodium (136-145) mEq/L Potassium (3.5-5.1) mEq/L Chloride (98-107) mEq/L Carbon Dioxide (21-32) mEq/L Anion Gap (5-15) BUN (7-18) mg/dL Creatinine (0.7-1.3) mg/dL Est Cr Clr Drug Dosing mL/min Estimated GFR (MDRD) (>60) mL/min BUN/Creatinine Ratio (14-18) Glucose (80-115) mg/dL POC Glucose (80-115) mg/dL Calcium (8.5-10.1) mg/dL Magnesium (1.8-2.4) mg/dl C-Reactive Protein (<1.0) mg/dL DENISE Results - Last 24 hrs: Microbiology 04/04/18 20:28 Aerobic Blood Culture - Preliminary Blood - Venous NO GROWTH AFTER 4 DAYS Anaerobic Blood Culture - Final 04/06/18 19:25 Aerobic Blood Culture - Preliminary Blood - Venous - Lab Draw NO GROWTH AFTER 2 DAYS Anaerobic Blood Culture - Final 04/06/18 19:05 Aerobic Blood Culture - Preliminary Blood - Venous NO GROWTH AFTER 2 DAYS Anaerobic Blood Culture - Final 04/05/18 11:10 Gram Stain - Final Foot, Right Anaerobic Culture - Preliminary Enterobacter Cloacae Staphylococcus Aureus Not Mrsa Streptococcus Mitis/Oralis Enterococcus Faecalis 04/07/18 14:26 Aerobic Blood Culture - Preliminary Blood - Venous - Lab Draw NO GROWTH AFTER 1 DAY Anaerobic Blood Culture - Preliminary NO GROWTH AFTER 1 DAY 04/07/18 14:17 Aerobic Blood Culture - Preliminary Blood - Venous NO GROWTH AFTER 1 DAY Anaerobic Blood Culture - Preliminary NO GROWTH AFTER 1 DAY 04/04/18 20:36 Aerobic Blood Culture - Final Blood - Venous - Lab Draw Staphylococcus Aureus Anaerobic Blood Culture - Final Staphylococcus Aureus Not Mrsa 04/04/18 20:45 Wound Culture - Preliminary Foot, Right Enterobacter Cloacae Staphylococcus Aureus Streptococcus Mitis/Oralis Med Orders - Current: Current Medications Acetaminophen (Tylenol) 650 mg PO Q4H PRN PRN Reason: Pain (Mild 1-3)/fever Last Admin: 04/08/18 13:37 Dose: 650 mg Hydrocodone Bitart/Acetaminophen ([place] 325-5 Mg) 1 tab PO Q4H PRN PRN Reason: Pain (moderate 4-6) Last Admin: 04/08/18 20:27 Dose: 1 tab Albuterol/Ipratropium (Duoneb 3.0-0.5 Mg/3 Ml) 3 ml NEB Q4H PRN PRN Reason: Shortness Of Breath/wheezing Aspirin (Halfprin) 81 mg PO DAILY MIMI Last Admin: 04/09/18 08:15 Dose: 81 mg Bisacodyl (Dulcolax) 5 mg PO DAILY PRN PRN Reason: Constipation Dextrose/Water (Dextrose 50% In Water) 50 ml IVPUSH ASDIRECTED PRN PRN Reason: Hypoglycemia Docusate Sodium (Colace) 100 mg PO BID PRN PRN Reason: Constipation Enoxaparin Sodium (Lovenox) 40 mg SUBCUT DAILY [facility] Last Admin: 04/09/18 08:14 Dose: 40 mg Ferrous Sulfate (Ferrous Sulfate) 325 mg PO BIDMEALS@0800,1700 [facility] Last Admin: 04/09/18 08:15 Dose: 325 mg Hydralazine HCl (Apresoline) 20 mg IVPUSH Q4H PRN PRN Reason: Hypertension Last Admin: 04/08/18 12:04 Dose: 20 mg Hydromorphone HCl (Dilaudid) 0.5 mg IVPUSH Q4H PRN PRN Reason: Pain (severe 7-10) Promethazine HCl 12.5 mg/ (Sodium Chloride) 50.5 mls @ 100 mls/hr IV Q6H PRN PRN Reason: Nausea/Vomiting Cefepime HCl 2 gm/ Premix 50 mls @ 100 mls/hr IV Q12H [facility] Last Admin: 04/09/18 01:40 Dose: 100 mls/hr Insulin Aspart (Novolog) 0 unit SUBCUT QIDACANDBED [facility]; Protocol Last Admin: 04/09/18 08:12 Dose: Not Given Insulin Detemir (Levemir) 15 unit SUBCUT BID [facility] Last Admin: 04/09/18 08:12 Dose: Not Given Lisinopril (Prinivil) 10 mg PO DAILY [facility] Last Admin: 04/09/18 08:15 Dose: 10 mg Lorazepam (Ativan) 2 mg IVPUSH Q4H PRN PRN Reason: Seizures Lorazepam (Ativan) 1 mg IV Q6H PRN PRN Reason: Nausea/Vomiting Magnesium Sulfate (Pharmacy To Dose - Magnesium Replacement) 1 dose .XX ASDIRECTED [facility] Metformin HCl (Glucophage) 500 mg PO BID [facility] Last Admin: 04/09/18 08:13 Dose: Not Given Metoprolol Tartrate (Lopressor) 5 mg IVPUSH Q4H PRN PRN Reason: Tachycardia Ondansetron HCl (Zofran) 4 mg IV Q6H PRN PRN Reason: Nausea/Vomiting Polyethylene Glycol (Miralax) 17 gm PO DAILY PRN PRN Reason: Constipation Potassium Chloride (Pharmacy To Dose - Potassium Replacement) 1 dose .XX ASDIRECTED [facility] Rosuvastatin Calcium (Crestor) 10 mg PO DAILY [facility] Last Admin: 04/09/18 08:15 Dose: 10 mg Saccharomyces Boulardii (Florastor) 250 mg PO BID [facility] Last Admin: 04/09/18 08:14 Dose: 250 mg Senna/Docusate Sodium (Senna Plus) 1 tab PO BID PRN PRN Reason: Constipation Temazepam (Restoril) 15 mg PO BEDTIME PRN PRN Reason: Sleep Discontinued Medications Bupivacaine HCl/Epinephrine Bitart (Marcaine 0.5%/Epinephrine 1:200,000) Confirm Administered Dose 50 ml .ROUTE .STK-MED ONE Stop: 04/05/18 10:30 Ferrous Sulfate (Ferrous Sulfate) 325 mg PO BIDMEALS [facility] Sodium Chloride (Normal Saline) 1,000 mls @ 100 mls/hr IV ASDIRECTED [facility] Last Admin: 04/08/18 07:29 Dose: 100 mls/hr Piperacillin Sod/Tazobactam (Sod 4.5 gm/ Sodium Chloride) 100 mls @ 200 mls/hr IV Q6H [facility] Last Admin: 04/05/18 04:04 Dose: Not Given Vancomycin HCl 1 gm/ Sodium (Chloride) 250 mls @ 250 mls/hr IV ONETIME ONE Stop: 04/04/18 21:03 Last Admin: 04/04/18 20:36 Dose: 250 mls/hr Sodium Chloride (Normal Saline) Confirm Administered Dose 100 mls @ as directed .ROUTE .STK-MED ONE Stop: 04/04/18 20:15 Last Admin: 04/04/18 20:37 Dose: Not Given Magnesium Sulfate 2 gm/ Premix 50 mls @ 25 mls/hr IV ONETIME ONE Stop: 04/05/18 00:36 Last Admin: 04/05/18 00:12 Dose: 25 mls/hr Vancomycin HCl 1 gm/Vancomycin HCl 500 mg/ Sodium Chloride 500 mls @ 333.025 mls/hr IV Q12H [facility] Last Admin: 04/05/18 19:05 Dose: Not Given Piperacillin Sod/Tazobactam (Sod 4.5 gm/ Sodium Chloride) 100 mls @ 25 mls/hr IV Q8H [facility] Last Admin: 04/05/18 02:35 Dose: 25 mls/hr Piperacillin Sod/Tazobactam (Sod 4.5 gm/ Dextrose/Water) 100 mls @ 25 mls/hr IV Q8H [facility] Last Admin: 04/05/18 10:23 Dose: 25 mls/hr Piperacillin Sod/Tazobactam (Sod 4.5 gm/ Dextrose/Water) 100 mls @ 25 mls/hr IV Q8H [facility] Last Admin: 04/06/18 06:00 Dose: 25 mls/hr Vancomycin HCl 1 gm/Vancomycin HCl 500 mg/ Sodium Chloride 500 mls @ 333.025 mls/hr IV Q12H [facility] Last Admin: 04/07/18 05:38 Dose: 333.025 mls/hr Ceftriaxone Sodium 1 gm/ (Dextrose/Water) 100 mls @ 200 mls/hr IV Q24H [facility] Lidocaine HCl (Xylocaine 1%) Confirm Administered Dose 50 ml .ROUTE .STK-MED ONE Stop: 04/05/18 11:01 Last Admin: 04/05/18 10:59 Dose: 2 ml Lidocaine/Epinephrine (Xylocaine 1% With Epinephrine 1:100,000) Confirm Administered Dose 20 ml .ROUTE .STK-MED ONE Stop: 04/05/18 10:30 Magnesium Oxide (Magnesium Oxide) 800 mg PO ONETIME ONE Stop: 04/07/18 09:01 Last Admin: 04/07/18 09:30 Dose: 800 mg Midazolam HCl (Versed 1 Mg/Ml) Confirm Administered Dose 2 mg .ROUTE .STK-MED ONE Stop: 04/05/18 10:40 Potassium Chloride (Klor-Con M20) 40 meq PO Q4H [facility] Stop: 04/08/18 12:01 Last Admin: 04/08/18 12:01 Dose: 40 meq Vancomycin HCl (Pharmacy To Dose - Vancomycin) 0 dose .XX ASDIRECTED PRN PRN Reason: RX TO DOSE VANCOMYCIN - Exam Quality Assessment: Reports: DVT Prophylaxis General: Reports: Alert, Oriented, Cooperative, No Acute Distress HEENT: Reports: Pupils Equal, Pupils Reactive, EOMI, Mucous Membr. Moist/[place] Neck: Reports: Supple, Trachea Midline, No JVD Lungs: Reports: Clear to Auscultation, Normal Respiratory Effort Cardiovascular: Reports: Regular Rate, Regular Rhythm GI/Abdominal Exam: Normal Bowel Sounds, Soft, Non-Tender, No Organomegaly, No Distention (Male) Exam: Deferred Rectal (Males) Exam: Deferred Back Exam: Reports: Normal Inspection, Full Range of Motion Extremities: Normal Range of Motion, Non-Tender, No Pedal Edema, Normal Capillary Refill Skin: Reports: Warm, Dry, Intact Wound/Incisions: Reports: Healing Well, Dressing Dry and Intact, No Drainage. Denies: Erythema Neurological: Reports: No New Focal Deficit Psy/Mental Status: Reports: Alert, Normal Affect, Normal Mood
[2018-04-09] MEDS: Acetaminophen 325 MG Tab PO PRN (13:11)
== END 2018-04-09 13:30 | disposition home or self-care (01) | DRG 463 ==
LOC: JD.ED 19:29 → JD.MS 22:03 → UNDOADMIN 22:03
PROVIDERS: ADMIT Internal Medicine; ATTEND Internal Medicine
PROC: 0JBQ0ZZ Excision of Right Foot Subcutaneous Tissue and Fascia, Open Approach (ICD-10-PCS; principal; 2018-04-05)
DX: T87.43 Infection of amputation stump, right lower extremity (principal); A41.01 Sepsis due to Methicillin susceptible Staphylococcus aureus; L03.115 Cellulitis of right lower limb; I10 Essential (primary) hypertension; L02.611 Cutaneous abscess of right foot; M86.9 Osteomyelitis, unspecified; B95.2 Enterococcus as the cause of diseases classified elsewhere; B95.61 Methicillin susceptible Staphylococcus aureus infection as the cause of diseases classified elsewhere; B95.4 Other streptococcus as the cause of diseases classified elsewhere; B96.89 Other specified bacterial agents as the cause of diseases classified elsewhere; R50.9 Fever, unspecified; R61 Generalized hyperhidrosis; R53.1 Weakness; R60.9 Edema, unspecified; R41.0 Disorientation, unspecified; E11.42 Type 2 diabetes mellitus with diabetic polyneuropathy; E11.610 Type 2 diabetes mellitus with diabetic neuropathic arthropathy; E11.628 Type 2 diabetes mellitus with other skin complications; E11.621 Type 2 diabetes mellitus with foot ulcer; L97.519 Non-pressure chronic ulcer of other part of right foot with unspecified severity; M19.90 Unspecified osteoarthritis, unspecified site; G89.29 Other chronic pain; E11.69 Type 2 diabetes mellitus with other specified complication; E87.6 Hypokalemia; M54.30 Sciatica, unspecified side; H26.9 Unspecified cataract; R51 Headache; K40.90 Unilateral inguinal hernia, without obstruction or gangrene, not specified as recurrent; E78.5 Hyperlipidemia, unspecified; E66.9 Obesity, unspecified; E83.42 Hypomagnesemia; D50.9 Iron deficiency anemia, unspecified; Z68.33 Body mass index [BMI] 33.0-33.9, adult; R00.1 Bradycardia, unspecified; Z79.82 Long term (current) use of aspirin; Z79.4 Long term (current) use of insulin; Z79.899 Other long term (current) drug therapy; Z89.421 Acquired absence of other right toe(s)
CPT/HCPCS: 36415; 71046; 80053; 83605; 83735; 85025; 85610; 85730; 86140; 87040 ×2; 87070; 87077 ×3; 87181; 87184; 87186 ×3; 96365; 96368; 99285; J2543; J3370; J7030; J7040; J7050; 01470; 80048; 80061; 80202; 82044; 82962; 83036; 84439; 84443; 87075; 87076; 87205; 93005; 97116-GP; 97161-GP; 97165-GO; 97530-GO; 99284; A9270-GY; J0360; J0692; J1650; J1815-GY; J2250; J3475; J7060